=== PATIENT | male | born 1945 | race Caucasian/White ===

== ENCOUNTER → 2023-04-21 15:11 | Outpatient (REF) | payer MEDICARE, OTHER, SELFPAY ==
[2023-04-21 16:30] LABS: ALT (SGPT) 14 U/L (0-50); AST (SGOT) 20 U/L (17-59); Albumin 4.4 g/dl (3.5-5.0); Alkaline Phosphatase 134 U/L (38-126); Blood Urea Nitrogen 33 mg/dl (9-20); Calcium 9.4 mg/dl (8.4-10.2); Carbon Dioxide 29 mmol/L (22-30); Chloride 98 mmol/L (98-107); Glucose 142 mg/dl (70-99); Potassium 4.9 mmol/L (3.5-5.1); Sodium 133 mmol/L (135-145); Total Protein 7.2 g/dl (6.3-8.2); eGFR > 60.00
[2023-04-21 16:42] LABS: Microalbumin, Random Urine 1.5 mg/dl (0.6-1.7)
[2023-04-22 08:54] LABS: Glycohemoglobin (HgbA1c) 8.2 % (4.0-5.6)
== END ==
LOC: REG 15:11
PROVIDERS: ATTENDING PHYSICIAN Internal Medicine Endocrinology, Diabetes & Metabolism; FAMILY PHYSICIAN Family Medicine
DX: E11.65 Type 2 diabetes mellitus with hyperglycemia (principal)
CPT/HCPCS: 36415; 80053; 82043; 82570; 83036

== ENCOUNTER → 2023-06-04 13:48 | Outpatient (REF) | payer MEDICARE, OTHER, SELFPAY | LOC: HWRAD 13:48 | PROVIDERS: ATTENDING PHYSICIAN Podiatrist Foot & Ankle Surgery; FAMILY PHYSICIAN Family Medicine | DX: M86.171 Other acute osteomyelitis, right ankle and foot (principal); E11.621 Type 2 diabetes mellitus with foot ulcer | CPT/HCPCS: 73700 ==

== ENCOUNTER → 2023-06-30 14:08 | Outpatient (REF) | payer MEDICARE, OTHER, SELFPAY | LOC: DHVS 14:08 | PROVIDERS: ATTENDING PHYSICIAN Surgery Vascular Surgery | DX: I73.9 Peripheral vascular disease, unspecified (principal); R60.0 Localized edema | CPT/HCPCS: 93922; 93925; 93970 ==

== ENCOUNTER 2023-07-20 07:07 | Day surgery (SDC) | payer MEDICARE, OTHER, SELFPAY ==
[2023-07-20] VITALS (20 sets, daily range): BP systolic 107–142; BP diastolic 52–93; BMI 24.1
[2023-07-20 07:38] LABS: Hematocrit 43.6 % (39.0-52.0); Hemoglobin 14.7 g/dL (13.0-18.0); Mean Corp Hgb Conc. 33.7 g/dL (33.0-37.0); Mean Corpuscular Hgb 31.4 pg (27.0-31.0); Mean Corpuscular Volume 93.2 fL (80.0-94.0); Mean Platelet Volume 11.4 fL (7.4-10.4); Platelet Count 199 10^3/uL (130-400); Red Blood Cell Count 4.68 10^6/uL (4.70-6.10); Red Cell Dist. Width 13.6 % (11.5-14.5); White Blood Cell Count 9.4 10^3/uL (4.8-10.8)
[2023-07-20 07:44] LABS: Blood Urea Nitrogen 32 mg/dl (9-20); Calcium 9.5 mg/dl (8.4-10.2); Carbon Dioxide 24 mmol/L (22-30); Chloride 97 mmol/L (98-107); Estimated Creatinine Clearance 56 ml/min; Glucose 407 mg/dl (70-99); Potassium 5.3 mmol/L (3.5-5.1); Sodium 132 mmol/L (135-145); eGFR > 60.00
[2023-07-20 07:49] LABS: INR 1.14; PT 14.4 Sec (11.4-14.6)
[2023-07-20 07:51] LABS: APTT 27.1 Sec (23.4-35.0)
[2023-07-20 08:14] LABS: Glucose - Point of Care 336 mg/dl (70-99)
--- NOTE | 2023-07-20 08:35 | W.SUR.PREOP ---
Pre-Operative Surgical Note
-
I have examined this patient prior to the performance of the scheduled procedure.
The patient's condition is unchanged from the time of the current History and
Physical and the patient is able to undergo the scheduled procedure.
[2023-07-20] MEDS: NOVOLOG vial 11 UNITS SC (08:40)
[2023-07-20] MEDS: NSS 500 IV (08:41)
[2023-07-20 09:48] LABS: Glucose - Point of Care 347 mg/dl (70-99)
[2023-07-20 10:46] LABS: Glucose - Point of Care 315 mg/dl (70-99)
[2023-07-20 10:52] LABS: Glucose - Point of Care 310 mg/dl (70-99)
[2023-07-20] MEDS: NOVOLOG vial 6 UNITS SC (10:55)
--- NOTE | 2023-07-20 11:11 | W.IMMPOSTOP ---
Surgical Immed Post Op Note
-
Primary Surgeon: Dr. Sampson Marrero III, MD
Assisting Surgeon: Dr. Cricket Lyman MD, PhD (PGY-1)
Pre-op Diagnosis: Peripheral arterial occlusive disease
Post-op Diagnosis: Peripheral arterial occlusive disease
Procedure Performed: Diagnostic arteriogram, intravascular lithotripsy, balloon angioplasty with drug coated balloon
Anesthesia Type: MAC
Specimen / Cultures: None
Estimated Blood Loss: Minimal
Complications: None
Operative Findings: Patient was positioned supine and bilateral groins were prepped and draped in usual sterile fashion. Ultrasound guidance was used to identify the right common femoral artery. Local anesthesia was injected over the puncture site.
Micropuncture needle was used to access the right common femoral artery and a 5-barbadian sheath was advanced over a [place] wire. A quickcross and glidewire were used to access the contralateral external iliac system. Arteriogram was performed and
showed iliac disease and disease at the PT trunk take off with relatively poor single peroneal vessel run off. We upsized to a 6-Namibian sheath and crossed the distal lesions in the right peroneal vessel. Intravascular lithotripsy was performed along
the course of the peroneal artery. Focal dissection was noticed proximally at the PT trunk so a balloon angioplasty was performed with a drug coated balloon at the proximal PT trunk and down to the peroneal artery. Completion angiogram showed
improved flow in the peroneal system with collaterals supplying the distal DP and plantar aspects of the foot. There was poor reconstitution of the distal PT artery. Arteriogram was also performed on the right femoral-iliac system and showed
proximal in stent restenosis of the preexisting right external iliac stent. At the conclusion of the case, a weak doppler pulse was noted on the left DP and PT arteries and doppler pulses were intact in both DP and PT on the right lower extremity.
The patient was transferred in stable condition to the PACU where the right groin sheath will be removed with manual occlusive pressure.
--- NOTE | 2023-07-20 11:34 | OR.RPT ---
Operative Report
Operative Report
Date of Operation: 07/20/2023
Pre Op Diagnosis: Critical limb threatening ischemia, left lower extremity with nonhealing wounds
Post Op Diagnosis: Critical limb threatening ischemia, left lower extremity with nonhealing wounds
Procedure:
1.) Intravascular lithotripsy to left tibioperoneal trunk/proximal peroneal artery stenosis (3 mm x 40 mm S4 Shockwave balloon)
2.) Intravascular lithotripsy to left distal SFA/above-knee popliteal artery occlusion (6 mm x 60 mm M5+ Shockwave balloon)
3.) Diagnostic aortobiiliac arteriogram
4.) Diagnostic BILATERAL lower extremity arteriograms
5.) Ultrasound-guided percutaneous access to the right common femoral artery
Surgeon: Sampson Marrero III, MD
Flower Machine Operator: Cricket Lyman MD PhD, PGY1
Anesthesia: Sedation with local
Fluoroscopy:
32.3 min
168 mGy
51.71 Gy.cm2
Complications: None
Estimated Blood Loss: Less than 20 cc
History and Indications for Procedure: 77-year-old male with known peripheral arterial occlusive disease presented with critical limb threatening ischemia of his left lower extremity.
Procedure in Detail: Rogelio Pelletier was correctly identified and placed supine on the operating table. After adequate induction of anesthesia the bilateral groins were prepped and draped in the usual sterile fashion. A timeout was performed with
the nursing and anesthesia staff confirming the patient's identity as well as the nature and laterality of the procedure.
The right common femoral artery was identified under ultrasound guidance. The artery was patent with peripheral calcification identified. The superior and inferior aspects of the femoral head were identified with radiographic guidance and marked at
the skin level. The proposed puncture site was infiltrated with local anesthesia. We saved a copy of the ultrasound image to the medical record. Under ultrasound guidance we accessed the right common femoral artery with a micropuncture needle and
upsized to a 5 Fr sheath over a Chlorine Genieson wire. The wire and a [employer] hook flush catheter were advanced into the distal abdominal aorta and a diagnostic aorto-biiliac arteriogram was performed:
AORTO-ILIAC ARTERIOGRAM:
Aorta: Diffusely calcified but patent with no significant stenosis identified
Right common iliac artery: Patent with no significant stenosis identified
Right external iliac artery: Patent. Several areas of moderate to high-grade stenosis identified
Left common iliac artery: Patent with no significant stenosis identified
Left external iliac artery: Patent stent in the proximal aspect with no significant stenosis identified.
Under roadmap guidance using a Glidewire and the [employer] hook catheter we selected the left common iliac artery and then the external iliac artery. A catheter was tracked up and over the aortic bifurcation and placed in the distal external iliac
artery. A diagnostic left lower extremity arteriogram was then performed which demonstrated the following:
LEFT LOWER EXTREMITY:
Common femoral artery: Patent with no significant stenosis identified
Profunda femoral artery: Patent. Focal high-grade stenosis in the proximal aspect
Superficial femoral artery: Patent stent proximally. Sluggish flow identified. Occlusion identified in the distal SFA/above-knee popliteal artery.
Popliteal artery: Reconstituted above the knee with moderate to severe stenosis identified
Anterior tibial artery: Patent stump but occluded shortly thereafter with no distal reconstitution
Tibioperoneal trunk: Patent with high-grade stenosis
Peroneal artery: Single vessel tibial artery. High-grade stenosis in the proximal aspect.
Posterior tibial artery: Occluded with no meaningful distal reconstitution
Severe and diffuse small vessel occlusive disease is identified in the foot.
ENDOVASCULAR INTERVENTION: Systemic heparin was administered. Selected the superficial femoral artery. Exchanged out for a 6 Fr 45 cm sheath over a Storq wire. The distal SFA/above-knee popliteal artery occlusion was crossed with a Quickcross and
Glidewire. The wire and catheter were advanced into the below-knee popliteal artery and subtraction angio confirmed proper position in the true lumen. Next under roadmap guidance we were able to navigate across the high-grade stenosis in the
tibioperoneal trunk and proximal peroneal artery with the Quickcross and Glidewire. Exchanged out for a 0.014 wire. Due to the calcified nature of the arterial disease and in an effort to modify the calcium to achieve maximum luminal gain with
endovascular intervention I elected to proceed with intravascular lithotripsy. A 3 mm x 40 mm S4 shockwave balloon was placed across the stenosis under roadmap guidance. Alternating rounds of lithotripsy pulse delivery at sub-nominal pressure and
angioplasty at nominal pressure was performed across the stenosis. In between rounds of pulse delivery and angioplasty the balloon was deflated and repositioned under roadmap guidance. All 160 pulses were delivered. Subsequent arteriogram
demonstrated an excellent technical result with a widely patent tibioperoneal trunk and peroneal artery and no significant residual stenosis identified.
I then focused my attention on the superficial femoral artery/popliteal artery occlusive disease. Due to the calcified nature of the arterial disease and in an effort to modify the calcium to achieve maximum luminal gain with endovascular
intervention I elected to proceed with intravascular lithotripsy. A 6 mm x 60 mm M5+ Shockwave balloon was placed across the stenosis under roadmap guidance. Alternating rounds of lithotripsy pulse delivery at sub-nominal pressure and angioplasty at
nominal pressure was performed across the stenosis. In between rounds of pulse delivery and angioplasty the balloon was deflated and repositioned under roadmap guidance. All 300 pulses were delivered.
Subsequent arteriogram demonstrated a significant improvement in the appearance of the superficial femoral artery and popliteal artery. There was a nonflow limiting dissection flap identified. Under roadmap guidance I then positioned a 6 mm x 220
mm Lutonix drug-coated balloon across the distal SFA/popliteal artery. The balloon was inflated to nominal pressure, held in place for 2 minutes and then deflated and removed over the wire.
COMPLETION ARTERIOGRAM: Patent left superficial femoral artery and popliteal artery with nonflow limiting dissection identified and no significant residual stenosis. Runoff was demonstrated through a patent tibioperoneal trunk and peroneal artery
with no significant residual stenosis identified. Once again identified was severe occlusive disease involving the posterior tibial artery and anterior tibial artery along with severe and diffuse small vessel occlusive disease in the foot.
The sheath tip was pulled back into the right external iliac artery. A runoff arteriogram of the right lower extremity was then performed which demonstrated the following:
RIGHT LOWER EXTREMITY:
Common femoral artery: Patent with no significant stenosis identified
Profunda femoral artery: Patent with no significant stenosis identified
Superficial femoral artery: Patent stents. Scattered areas of moderate and high-grade stenosis seen throughout, most severe at the proximal aspect of the stent
Popliteal artery: Patent with no significant stenosis identified
Anterior tibial artery: Occluded
Tibioperoneal trunk: Focal high-grade stenosis identified at its origin
Peroneal artery: Focal high-grade stenosis proximally. Single-vessel patent tibial artery.
Posterior tibial artery: Occluded.
The patient tolerated the procedure well and was taken to the recovery area in stable condition.
Attestation: I was present and responsible for the entire procedure.
Signed:
Sampson Marrero III, MD
Vascular Surgery
[phone] (diix)
--- NOTE | 2023-07-20 12:07 | SUR.PHASEI ---
Report to lab tech recovery phase 2 on phone - transported by Ajay Costa RN
[2023-07-20 13:04] LABS: Glucose - Point of Care 246 mg/dl (70-99)
--- NOTE | 2023-07-20 13:11 | PTCARENOTE ---
Accucheck 246 at 1252 hrs. Renuka Wilder aware and SS insulin ordered.
Will give 3 units insulin per SS. Pt tolerating all well. at bedside.
[2023-07-20] MEDS: NOVOLOG vial 3 UNITS SC (13:17)
== END 2023-07-20 17:35 | disposition home or self-care (01) ==
LOC: CATH 07:07
PROVIDERS: ATTENDING PHYSICIAN Surgery Vascular Surgery; FAMILY PHYSICIAN Family Medicine
DX: I70.248 Atherosclerosis of native arteries of left leg with ulceration of other part of lower leg (principal); L97.829 Non-pressure chronic ulcer of other part of left lower leg with unspecified severity; I70.245 Atherosclerosis of native arteries of left leg with ulceration of other part of foot; L97.529 Non-pressure chronic ulcer of other part of left foot with unspecified severity; Z79.82 Long term (current) use of aspirin; Z79.01 Long term (current) use of anticoagulants; Z79.84 Long term (current) use of oral hypoglycemic drugs; I48.0 Paroxysmal atrial fibrillation; I42.1 Obstructive hypertrophic cardiomyopathy; I50.40 Unspecified combined systolic (congestive) and diastolic (congestive) heart failure
CPT/HCPCS: C9764; C9772; 75625; 75716; 76937; 80048; 82962; 85027; 85610; 85730; C1769; C1894; Q9967

== ENCOUNTER 2023-08-04 14:58 | Emergency (ER) | payer MEDICARE, OTHER, SELFPAY ==
[2023-08-04 15:17] VITALS: BP 105/49
[2023-08-04 15:50] LABS: % Basophils 0.4 % (0-2); % Eosinophils 1.1 % (0-6); % Immature Granulocytes 0.7 % (0-0.5); % Lymphocytes 17.3 % (20.5-51.1); % Monocytes 5.9 % (1.7-9.3); % Neutrophils 74.6 % (42.2-75.2); Absolute Eosinophils 0.1 10^3/uL (0-0.7); Absolute Immature Granulocytes 0.1 10^3/uL (0-0.05); Absolute Lymphocytes 1.7 10^3/uL (1.2-3.4); Absolute Monocytes 0.6 10^3/uL (0.1-0.6); Absolute Neutrophils 7.2 10^3/uL (1.4-6.5); Hematocrit 42.4 % (39.0-52.0); Hemoglobin 14.3 g/dL (13.0-18.0); Mean Corp Hgb Conc. 33.7 g/dL (33.0-37.0); Mean Corpuscular Hgb 31.3 pg (27.0-31.0); Mean Corpuscular Volume 92.8 fL (80.0-94.0); Mean Platelet Volume 11.3 fL (7.4-10.4); Nucleated Red Blood Cells % 0 % (-); Platelet Count 172 10^3/uL (130-400); Red Blood Cell Count 4.57 10^6/uL (4.70-6.10); Red Cell Dist. Width 13.6 % (11.5-14.5); White Blood Cell Count 9.7 10^3/uL (4.8-10.8)
[2023-08-04 15:59] LABS: ALT (SGPT) 15 U/L (0-50); AST (SGOT) 19 U/L (17-59); Albumin 4.5 g/dl (3.5-5.0); Alkaline Phosphatase 125 U/L (38-126); Blood Urea Nitrogen 30 mg/dl (9-20); Calcium 9.6 mg/dl (8.4-10.2); Carbon Dioxide 23 mmol/L (22-30); Chloride 101 mmol/L (98-107); Glucose 251 mg/dl (70-99); Potassium 4.6 mmol/L (3.5-5.1); Sodium 138 mmol/L (135-145); Total Bilirubin 0.9 mg/dl (0.2-1.3); Total Protein 7.4 g/dl (6.3-8.2); eGFR > 60.00
[2023-08-04 19:52] VITALS: BP 140/62; BMI 24.6
--- NOTE | 2023-08-04 20:38 | ED.GENMED ---
History of Present Illness
General
Chief Complaint: Skin Problem
Time Seen by Provider: 08/04/23 19:34
Travel History
Have you had any contact with someone who has COVID-19?: No
Do you have any symptoms of coronavirus? Fever > 100 degrees, chills, cough, shortness of breath, sore throat, loss of taste or smell, muscle aches, or headache?: No
History of Present Illness
History of Present Illness:
77-year-old male with history of peripheral arterial disease presents to the emergency department for evaluation of a painful wound to the left anterior lower leg. He is 2 weeks status post angioplasty of the left lower extremity due to critical
limb ischemia. He does note that he had some redness and warmth to the left foot today which is atypical for him. Denies any claudication symptoms. No fevers or chills
Past History
Past History
ED Past Medical History: Arrthythmia (Atrial fibrillation), CHF (Hypertrophic obstructive Cardiomyopathy), HTN, Hypercholesterolemia, Valvular disease and Other (Hypertrophic cardiomyopathy, diabetic neuropathy, diabetic foot wounds, cellulitis,
osteomyelitis, MRSA)
ED Past Surgical History: Cardiac (AICD, aortic valve replacement), Cholecystectomy, Orthopedic (Right foot metatarsal resection November 2017) and Tonsilectomy
Social History
Tobacco: Smoker
Alcohol: None
Drug: None
Personal:
Living: with family
Employment: Retired
Family History
Family History: Other (Father with rheumatic fever)
Review of Systems
Review of Systems
Allergies reviewed?: Yes
All Other Systems: ROS reviewed and negative except as documented in HPI and ROS
Phy Exam
Physical Exam
Physical Exam:
GEN: Well appearing, NAD, WDWN
HEENT: Oral mucosa moist, no scleral icterus
Cardiac: Regular rate
Lung: No respiratory distress, no tachypnea
MSK: No gross deformity or injuries. 2 cm circular superficial wound with overlying eschar to the anterior left lower extremity with surrounding erythema, no warmth or discharge. Left dorsalis pedis pulse is faint by Doppler
Skin: Good color, no pallor or jaundice, no rashes
Neuro: AO x3, moves all extremities freely
Psych: Calm, cooperative
Course
Orders/Labs/Results
Orders:
Orders
08/04/23 15:34
Complete Blood Count/With Diff Urgent
Comprehensive Metabolic Panel Urgent
08/04/23 19:44
CR Leg Tibia/fibula Left 2 Vw Urgent
Comment:
Reason For Exam: non healing wound L anterior lower leg
08/04/23 20:32
Cephalexin Monohydrate [Keflex] 500 mg PO NOW STA
08/04/23 20:50
Mupirocin [Bactroban 2% Ointment] 1 applic TOPICAL NOW STA
Abnormal Lab Results
08/04/23
15:34
RBC 4.57 L 10^6/uL
(4.70-6.10)
MCH 31.3 H pg
(27.0-31.0)
MPV 11.3 H fL
(7.4-10.4)
Abs Immat Gran (auto) 0.1 H 10^3/uL
(0-0.05)
Absolute Neuts (auto) 7.2 H 10^3/uL
(1.4-6.5)
Immature Gran % 0.7 H %
(0-0.5)
Lymphocytes % 17.3 L %
(20.5-51.1)
BUN 30 H mg/dl
(9-20)
Glucose 251 H mg/dl
(70-99)
08/04/23 15:34
08/04/23 15:34
Vital Signs
Initial and Last Documented VS:
Initial Vital Signs
Temp Pulse Resp BP Pulse Ox
98.1 F 87 18 105/49 99
08/04/23 15:17 08/04/23 15:17 08/04/23 15:17 08/04/23 15:17 08/04/23 15:17
Last Documented Vital Signs
Temp Pulse Resp BP Pulse Ox
98.1 F 87 18 140/62 100
08/04/23 15:17 08/04/23 15:17 08/04/23 15:17 08/04/23 19:52 08/04/23 19:53
MDM/Problems Addressed
MDM/Problems Addressed:
The wound does not appear to be actively infected given lack of warmth however given the significant degree of tenderness we will treat with prophylactic antibiotics. Likely dry gangrene in the setting of peripheral arterial disease. Will start
him on oral and topical antibiotics for 1 week empirically
*Critical Care Note
Total Time (30-74mins, 75-104mins- exclusive of procedures): Not Applicable
ED Attending Note
-
Portions of this chart may have been created with voice recognition software.� Occasional wrong word or��sound alike� substitutions may have occurred due to the inherent limitations of voice recognition software.
Discharge Plan
Departure
Patient Disposition: Home (Routine Discharge)
Date of Disposition: 08/04/23
Time of Disposition: 20:42
Patient with high blood pressure during this ER visit?: No
Discharge Problem:
Dry gangrene, PAD (peripheral artery disease), Leg wound, left
Instructions: Wound Care (DC)
Prescriptions:
New
mupirocin 2 % ointment
1 applic topical BID 5 Days Qty: 15 0RF
cephalexin 500 mg capsule
500 mg PO Q8H 5 Days Qty: 15 0RF
No Action
potassium chloride [Klor-Con M20] 20 MEQ tablet,ER particles/crystals
20 meq PO BID
metformin 1,000 MG tablet
1,000 mg PO BID
Hold Instructions: Resume on 10/02/22. Hold for 48 hrs post angio
glipizide 5 MG tablet
10 mg PO BID
Patient Comments:
cinnamon bark [Cinnamon] 500 MG capsule
500 mg PO DAILY
furosemide [Lasix] 40 MG tablet
80 mg PO DAILY
cyanocobalamin (vitamin B-12) 1,000 MCG tablet
1,000 mcg PO DAILY
warfarin [Jantoven] 5 MG tablet
7.5 mg PO SUTH
Hold Instructions: Resume on 10/01/21. Resume dose warfrin on 10/01/2021
warfarin [Jantoven] 5 MG tablet
5 mg PO MOTUWEFRSA
turmeric root extract 500 MG capsule
900 mg PO DAILY
losartan 25 MG tablet
25 mg PO DAILY
cholecalciferol (vitamin D3) [Vitamin D3] 25 MCG capsule
25 mcg PO DAILY
chromium picolinate 1,000 MCG tablet
500 mcg PO DAILY
Jardiance 25 mg Tablet
25 mg PO DAILY
furosemide 40 mg Tablet
40 mg PO QPM
tamsulosin [Flomax] 0.4 mg Capsule
0.4 mg PO QPM
aspirin [Ecotrin Low Strength] 81 mg tablet,delayed release (DR/EC)
81 mg PO DAILY Qty: 30 5RF
methylprednisolone 32 mg Tablet
32 mg PO DIRECTED
Rx Instructions:
1 tab 12 hours prior to procedure
diphenhydramine HCl [Benadryl] 25 mg Capsule
50 mg PO DIRECTED
Rx Instructions:
take 50 mg 1 hour prior to procedure
fenugreek seed extract
610 mg PO DAILY
Activity Restrictions/Additional Instructions:
Keep the wound dressed daily, cleanse with soap and water at least once daily
Follow-up with wound care
Contact your vascular surgeon tomorrow given your upcoming procedure
Interventions
Interventions:
*Risk Screen - Suicide Last Done: 08/04/23 19:57
*General Assessment Last Done: 08/04/23 19:57
*Neglect/Abuse Screening Last Done: 08/04/23 19:57
*ED COVID-19 Vaccine History Last Done: 08/04/23 19:57
ED-Skin Assessment Last Done: 08/04/23 20:03
Discharge Date and Time
Print Language: JAPANESE
[2023-08-04] MEDS: KEFLEX 500 MG PO (21:05)
[2023-08-04] MEDS: BACTROBAN 2% OINTMENT 1 APPLIC TOPICAL (21:05)
== END 2023-08-04 22:03 | disposition home or self-care (01) ==
LOC: EMR 14:58
PROVIDERS: Emergency Medicine; EMERGENCY PHYSICIAN Student in an Organized Health Care Education/Training Program; FAMILY PHYSICIAN Family Medicine
DX: E11.52 Type 2 diabetes mellitus with diabetic peripheral angiopathy with gangrene (principal); I96 Gangrene, not elsewhere classified; S81.802A Unspecified open wound, left lower leg, initial encounter; X58.XXXA Exposure to other specified factors, initial encounter; I48.91 Unspecified atrial fibrillation; E78.00 Pure hypercholesterolemia, unspecified; E11.40 Type 2 diabetes mellitus with diabetic neuropathy, unspecified; F17.200 Nicotine dependence, unspecified, uncomplicated; I11.0 Hypertensive heart disease with heart failure; I42.1 Obstructive hypertrophic cardiomyopathy; Z90.49 Acquired absence of other specified parts of digestive tract; Z95.2 Presence of prosthetic heart valve; Z95.810 Presence of automatic (implantable) cardiac defibrillator
CPT/HCPCS: 99283; 73590; 80053; 85025; 87070; 87205

== ENCOUNTER 2023-08-07 07:05 | Day surgery (SDC) | payer MEDICARE, OTHER, SELFPAY ==
[2023-08-07] VITALS (30 sets, daily range): BP systolic 88–127; BP diastolic 54–83; BMI 24.3
[2023-08-07 07:42] LABS: INR 1.16; PT 14.7 Sec (11.4-14.6)
[2023-08-07 08:02] LABS: Glucose - Point of Care 384 mg/dl (70-99)
[2023-08-07] MEDS: NOVOLOG vial 5 UNITS SC (08:16)
[2023-08-07 10:16] LABS: Glucose - Point of Care 315 mg/dl (70-99)
--- NOTE | 2023-08-07 10:36 | OR.RPT ---
Operative Report
Operative Report
Date of Operation: 08/07/2023
Pre Op Diagnosis: Critical limb threatening ischemia, right lower extremity
Post Op Diagnosis: Critical limb threatening ischemia, right lower extremity
Procedure:
1.) Intravascular lithotripsy to right TP trunk and posterior tibial artery stenosis (3 mm x 40 mm S4 shockwave balloon)
2.) Drug-coated balloon angioplasty to diffuse in-stent restenosis of superficial femoral artery stent (6 mm x 220 mm Lutonix)
3.) Drug-coated balloon angioplasty to right popliteal artery stenosis (5 mm x 220 mm Lutonix)
4.) Balloon angioplasty and stenting of proximal right external iliac artery stenosis (8 mm x 27 mm express LD stent)
5.) Ultrasound-guided percutaneous access to the left common femoral artery
Surgeon: Sampson Marrero III, MD
Plumbing Drafter: Cricket Lyman MD PhD, PGY1
Anesthesia: Sedation with local
Fluoroscopy:
26.3 min
211 mGy
42.97 Gy.cm2
Complications: None
Estimated Blood Loss: Less than 20 cc
History and Indications for Procedure: 77-year-old male with critical limb threatening ischemia involving his right lower extremity.
Procedure in Detail: Rogelio Pelletier was correctly identified and placed supine on the operating table. After adequate induction of anesthesia the bilateral groins were prepped and draped in the usual sterile fashion. A timeout was performed with
the nursing and anesthesia staff confirming the patient's identity as well as the nature and laterality of the procedure.
The left common femoral artery was identified under ultrasound guidance. The artery was patent. The superior and inferior aspects of the femoral head were identified with radiographic guidance and marked at the skin level. The proposed puncture site
was infiltrated with local anesthesia. We saved a copy of the ultrasound image to the medical record. Under ultrasound guidance we accessed the right common femoral artery with a micropuncture needle and upsized to a 5 Fr sheath over a Bentson wire.
The wire and a [employer] hook flush catheter were advanced into the distal abdominal aorta and a diagnostic aorto-biiliac arteriogram was performed:
AORTO-ILIAC ARTERIOGRAM:
Aorta: Patent with no significant stenosis identified
Right common iliac artery: Patent with no significant stenosis identified
Right external iliac artery: Proximal moderate to high-grade stenosis identified
Left common iliac artery: Patent with no significant stenosis identified
Left external iliac artery: Patent with no significant stenosis identified
Under roadmap guidance using a Glidewire and the [employer] hook catheter we selected the right common iliac artery and then the external iliac artery. A catheter was tracked up and over the aortic bifurcation and placed in the distal external iliac
artery. A diagnostic right lower extremity arteriogram was then performed which demonstrated the following:
RIGHT LOWER EXTREMITY:
Common femoral artery: Calcified. Patent with no significant stenosis identified
Profunda femoral artery: Patent with no significant stenosis identified
Superficial femoral artery: Stented throughout. Diffuse scattered high-grade in-stent restenosis identified.
Popliteal artery: Patent. Focal moderate stenosis involving the popliteal artery behind the knee. Below-knee popliteal artery patent with no stenosis identified
Anterior tibial artery: Occluded
Tibioperoneal trunk: Patent. High-grade stenosis focally at the distal aspect.
Peroneal artery: Patent stump but occluded shortly thereafter
Posterior tibial artery: Single vessel tibial artery runoff. High-grade stenosis in the proximal aspect.
ENDOVASCULAR INTERVENTION: Systemic heparin was administered. Exchanged out for a 6 Fr 45 cm sheath over a Storq wire. Selected the superficial femoral artery under roadmap guidance with Quickcross catheter and glidewire. The diffuse in-stent
restenosis in the superficial femoral artery stent was crossed with a Quickcross and Glidewire. Similarly the popliteal artery stenosis was crossed with the same set up. The tibioperoneal trunk and proximal posterior tibial artery stenoses were
crossed with the Glidewire and quick cross catheter under roadmap guidance. The wire and catheter were advanced into the posterior tibial artery and subtraction angio confirmed proper position in the true lumen. Exchanged out for a 0.014 wire. Due
to the calcified nature of the tibial arterial disease and in an effort to modify the calcium to achieve maximum luminal gain with endovascular intervention I elected to proceed with intravascular lithotripsy. A 3 mm x 40 mm S4 shockwave balloon was
placed across the TP trunk/proximal posterior tibial artery stenosis under roadmap guidance. Alternating rounds of lithotripsy pulse delivery at sub-nominal pressure and angioplasty at nominal pressure was performed across the stenosis. In between
rounds of pulse delivery and angioplasty the balloon was deflated and repositioned under roadmap guidance. All 160 pulses were delivered. Subsequent arteriogram demonstrated an excellent technical result with a widely patent tibioperoneal trunk and
posterior tibial artery, brisk flow and no evidence of significant residual stenosis.
I then focused my attention on the superficial femoral artery in-stent restenosis as well as the popliteal artery stenosis behind the knee. I exchanged out for a [employer] wire. The chinik popliteal artery stenosis along with the in-stent restenosis
in the distal aspect of the superficial femoral artery stent was treated with a 5 mm x 220 mm Lutonix drug-coated balloon. The balloon was positioned in the desired location under roadmap guidance, inflated to nominal pressure, held in place for 2
minutes. The remainder of the superficial femoral artery in-stent restenosis was treated with a 6 mm x 220 mm Lutonix drug-coated balloon which was positioned and which was positioned and inflated in a similar fashion. Subsequent arteriogram
demonstrated an excellent technical result. The superficial femoral artery stent and popliteal artery were widely patent with no significant residual stenosis identified.
I then focused my attention on the external iliac artery disease. Under oblique magnification view the right proximal external iliac artery stenosis was clearly identified. Under roadmap guidance I treated the stenosis with an 8 mm x 27 mm express
LD stent. The stent was positioned in the desired location under roadmap guidance and deployed by inflating to nominal pressure. Subsequent arteriogram demonstrated an excellent technical result with brisk flow through the external iliac artery, a
widely patent stent with no residual stenosis identified.
Satisfied with this result we concluded the procedure. The sheath tip was pulled back into the left external iliac artery. Protamine was administered.
The patient tolerated the procedure well and was taken to the recovery area in stable condition.
Attestation: I was present and responsible for the entire procedure.
Signed:
Sampson Marrero III, MD
[facility] Vascular Surgery
[phone] (cell)
[2023-08-07] MEDS: NOVOLOG vial 4 UNITS SC (10:52)
[2023-08-07] MEDS: DILAUDID 0.25 MG IV ×2 (10:54→11:16)
[2023-08-07] MEDS: KEFLEX 500 MG PO (12:03)
[2023-08-07 12:46] LABS: Glucose - Point of Care 212 mg/dl (70-99)
[2023-08-07] MEDS: NOVOLOG FLEXPEN-LOW RESISTANCE 2 UNITS SC (12:47)
--- NOTE | 2023-08-07 20:31 | W.IMMPOSTOP ---
Surgical Immed Post Op Note
-
Primary Surgeon: Dr. Sampson Marrero III, MD
Assisting Surgeon: Dr. Cricket Lyman MD, PhD (PGY-1)
Pre-op Diagnosis: Right lower extremity severe occlusive peripheral artery disease with critical limb threatening ischemia
Post-op Diagnosis: Right lower extremity severe occlusive peripheral artery disease with critical limb threatening ischemia
Procedure Performed: Diagnostic arteriogram, intravascular lithotripsy, drug-coated balloon angioplasty, stent x1
Anesthesia Type: MAC
Specimen / Cultures: None
Estimated Blood Loss: Minimal
Complications: None
Operative Findings: The patient was brought to the OR and placed in the supine position. After induction and sedation, the patient was prepped and draped in usual sterile fashion. Ultrasound guidance was used to identify the left common femoral
artery and the inferior and superior boundaries of the femoral head were marked at the skin level with C-arm. Micropuncture kit was used to access the left common femoral artery and this was upsized to a 5-maldivian sheath over a [employer] wire. A
hickman's hook catheter was advanced over the wire and a diagnostic arteriogram was performed. This showed a focal area of occlusive disease in the right external iliac artery. A Glidewire was used to select the contralateral ilio-femoral system.
Diagnostic arteriogram showed significant in stent restenosis of the right SFA, occlusive disease of the AT artery, TP trunk, with single PT artery run off distally. We exchanged for a 6-maldivian sheath and crossed the TP trunk lesion with a
quickcross catheter and wire. Intravascular lithotripsy was performed along the TP trunk and proximal PT artery. Following this, drug-coated balloon angioplasty was performed along the right SFA in stent restenosis. In addition, a drug-coated stent
was delivered in the right external iliac artery. Completion arteriogram showed flow throw the right external iliac artery, improvement in vessel lumen caliber along the right SFA, and a patent TP trunk. The sheaths were removed and occlusive
pressure was held. The patient was transferred to the PACU in stable condition.
== END 2023-08-07 16:20 | disposition home or self-care (01) ==
LOC: CATH 07:05
PROVIDERS: ATTENDING PHYSICIAN Surgery Vascular Surgery; FAMILY PHYSICIAN Family Medicine; OTHER PHYSICIAN Internal Medicine Cardiovascular Disease
DX: I70.229 Atherosclerosis of native arteries of extremities with rest pain, unspecified extremity (principal); Z79.82 Long term (current) use of aspirin; Z79.84 Long term (current) use of oral hypoglycemic drugs; Z79.01 Long term (current) use of anticoagulants; E11.9 Type 2 diabetes mellitus without complications; I42.1 Obstructive hypertrophic cardiomyopathy; I42.9 Cardiomyopathy, unspecified; I48.21 Permanent atrial fibrillation; I50.42 Chronic combined systolic (congestive) and diastolic (congestive) heart failure
CPT/HCPCS: 37224; 37220; C9772; C1876; C2623; 76937; 82962; 85610; Q9967

== ENCOUNTER → 2023-09-16 13:07 | Outpatient (REF) | payer MEDICARE, OTHER, SELFPAY | LOC: RAD 13:07 | PROVIDERS: ATTENDING PHYSICIAN Surgery Vascular Surgery; FAMILY PHYSICIAN Family Medicine | DX: I77.9 Disorder of arteries and arterioles, unspecified (principal) | CPT/HCPCS: 93922; 93925; 93978 ==

== ENCOUNTER 2023-09-22 19:17 | Inpatient (IN) | payer MEDICARE, OTHER, SELFPAY ==
[2023-09-22 16:01] VITALS: BP 111/82
--- NOTE | 2023-09-22 16:06 | W.PN.UPDATE ---
Update Note
Progress Note Update
Vascular consultation:
Patient seen in our office today with note below, sent to emergency room for evaluation.
Plan:
-Plastics consult, Dr. Palomo spoke with Dr. Soto
-Admit to hospitalist
-Left lower extremity x-ray to eval for osteo
-Possible left lower extremity arteriogram
-Local wound care
--- NOTE | 2023-09-22 16:16 | ED.GENMED ---
History of Present Illness
General
Chief Complaint: Skin Problem
Source: patient
Exam Limitations: none
Time Seen by Provider: 09/22/23 16:14
Nursing documentation reviewed up to this point in time: agreed with
History of Present Illness
History of Present Illness:
This is a 77-year-old male with a past medical history of diabetes with diabetic neuropathy, peripheral arterial disease, CHF, A-fib on warfarin, coronary artery disease presenting emergency department today with concerns of a left lower extremity
wound. Patient was sent in by Dr. Marrero's office today. He was seen today for routine postop visit, he had bilateral endovascular intervention on the lower extremities, 07/19 (left) 08/06 (right). Patient's vascular team called him in to the ER and
report that his lower extremity wound is worsening and that he has a worsening THOMAS on the left with SFA re-occlusion on duplex. Patient states that he has had this wound for around a year and a half. Patient states that with his significant
neuropathy, he does not have much feeling remaining in his lower extremities however he does note that he will get twinges of pain from time to time surrounding the wound. Patient denies any fevers or chills, any nausea or vomiting, any abdominal
pain, any chest pain, shortness of breath.
Past History
Past History
ED Past Medical History: Arrthythmia (Atrial fibrillation), CHF (Hypertrophic obstructive Cardiomyopathy), HTN, Hypercholesterolemia, Valvular disease and Other (Hypertrophic cardiomyopathy, diabetic neuropathy, diabetic foot wounds, cellulitis,
osteomyelitis, MRSA)
ED Past Surgical History: Cardiac (AICD, aortic valve replacement), Cholecystectomy, Orthopedic (Right foot metatarsal resection November 2017) and Tonsilectomy
Social History
Tobacco: Smoker
Alcohol: None
Drug: None
Personal:
Living: with family
Employment: Retired
Family History
Family History: Other (Father with rheumatic fever)
Review of Systems
Review of Systems
All Other Systems: ROS reviewed and negative except as documented in HPI and ROS
Phy Exam
Physical Exam
Physical Exam:
General: Patient is well appearing and in no acute distress; non-toxic
Skin: Warm and dry; 5.5 cm circular wound on the anterior left extremity with no active drainage, questionable exposed tibia
Head: Normocephalic, atraumatic
Eyes: Sclera non-icteric. EOMs intact.
Cardiac: Regular rate and rhythm
Peripheral Vascular: No lower extremity swelling or edema
Pulm: Normal respiratory effort
Musculoskeletal: Mild tenderness to palpation of the left tibia. No pain with passive range of motion of bilateral lower extremities.
Neuro: CN II-XII intact, no focal neurologic deficits.
Psychiatric: Appropriate mood and affect.
Course
Orders/Labs/Results
Orders:
Orders
09/22/23 16:23
PLASTIC SURGERY CONSULT Routine
Consulting Provider: Santy Soto
Was physician already notified: Yes
Reason for Consult: Left silva wound
09/22/23 16:28
CR Leg Tibia/fibula Left 2 Vw Urgent
Comment:
Reason For Exam: left LE wound
09/22/23 16:44
CRP [C-Reactive Protein] Urgent
Complete Blood Count/With Diff Urgent
Comprehensive Metabolic Panel Urgent
Erythrocyte Sed Rate Urgent
09/22/23 17:18
Acetaminophen [Tylenol] 1,000 mg PO NOW STA
Abnormal Lab Results
09/22/23
16:44
RBC 4.45 L 10^6/uL
(4.70-6.10)
MCH 32.1 H pg
(27.0-31.0)
MPV 11.1 H fL
(7.4-10.4)
BUN 32 H mg/dl
(9-20)
Glucose 183 H mg/dl
(70-99)
09/22/23 16:44
09/22/23 16:44
Vital Signs
Initial and Last Documented VS:
Initial Vital Signs
Pulse Resp BP Pulse Ox
76 16 111/82 96
09/22/23 16:01 09/22/23 16:01 09/22/23 16:01 09/22/23 16:01
Last Documented Vital Signs
Temp Pulse Resp BP Pulse Ox
98.0 F 71 18 115/68 99
09/22/23 17:19 09/22/23 17:18 09/22/23 17:18 09/22/23 17:18 09/22/23 17:18
MDM/Problems Addressed
Differential Diagnosis Includes:
ddx include progression of peripheral arterial disease, dry gangrene osteomyelitis, cellulitis
MDM/Problems Addressed:
LLE Wound:
This is a 77-year-old male with a past medical history of diabetes with diabetic neuropathy, peripheral arterial disease, CHF, A-fib on warfarin, coronary artery disease presenting emergency department today with concerns of a left lower extremity
wound. Patient states that he has had this wound for around a year and a half. Patient was sent in by Dr. Marrero's office for admission, as he was found to have worsening THOMAS on the left and reocclusion of left SFA stent. There was also concern for
potential osteo. Patient has no evidence of osteo on his X-ray, his VSS, his inflammatory markers are unremarkable. Patient was referred for admission.
Chronic conditions affecting care:
diabetic neuropathy, peripheral arterial disease, aortic stenosis, A-fib, CHF, ICD in place
Acute Exacerbation and/or Progression of Chronic Illness:
diabetic neuropathy, peripheral arterial disease, aortic stenosis, A-fib, CHF, ICD in place
*Pulse Oximetry
Patient hypoxic: no
*Critical Care Note
Total Time (30-74mins, 75-104mins- exclusive of procedures): Not Applicable
Data Reviewed
Review of Other/Old Records Reveals: Records (Reviewed previous vascular ultrasound study, reviewed operative report from 07/20/2023, reviewed ER physician documentation from 08/04/23)
Source: patient and records
Prescriptions/Medications Considered But Not Given:
considered starting antibiotics
Further Testing Considered But Not Given:
considered MRI but patient has ICD in place
Patient Management
Discussion with other providers: Hospitalist
Escalation/DeEscalation of care consider admission/obs:
Admission indicated. Case reviewed with my attending Dr. Carlin.
ED Attending Note
-
Portions of this chart may have been created with voice recognition software.� Occasional wrong word or��sound alike� substitutions may have occurred due to the inherent limitations of voice recognition software.
Discharge Plan
Departure
Prescriptions:
No Action
potassium chloride [Klor-Con M20] 20 MEQ tablet,ER particles/crystals
20 meq PO BID
metformin 1,000 MG tablet
1,000 mg PO BID
Hold Instructions: Resume on 08/10/23.
glipizide 5 MG tablet
10 mg PO BID
Patient Comments:
cinnamon bark [Cinnamon] 500 MG capsule
500 mg PO DAILY
furosemide [Lasix] 40 MG tablet
80 mg PO DAILY
cyanocobalamin (vitamin B-12) 1,000 MCG tablet
1,000 mcg PO DAILY
warfarin [Jantoven] 5 MG tablet
7.5 mg PO SUTH
Hold Instructions: Resume on 10/01/21. Resume dose warfrin on 10/01/2021
warfarin [Jantoven] 5 MG tablet
5 mg PO MOTUWEFRSA
turmeric root extract 500 MG capsule
900 mg PO DAILY
losartan 25 MG tablet
25 mg PO DAILY
cholecalciferol (vitamin D3) [Vitamin D3] 25 MCG capsule
25 mcg PO DAILY
chromium picolinate 1,000 MCG tablet
500 mcg PO DAILY
Jardiance 25 mg Tablet
25 mg PO DAILY
furosemide 40 mg Tablet
40 mg PO QPM
tamsulosin [Flomax] 0.4 mg Capsule
0.4 mg PO QPM
aspirin [Ecotrin Low Strength] 81 mg tablet,delayed release (DR/EC)
81 mg PO DAILY Qty: 30 5RF
fenugreek seed extract
610 mg PO DAILY
Referrals:
UNKNOWN - PT DOES,NOT KNOW [Unknown Provider] -
Interventions
Interventions:
*Risk Screen - Suicide Last Done: 09/22/23 16:01
*General Assessment Last Done: 09/22/23 16:01
*Neglect/Abuse Screening Last Done: 09/22/23 16:01
ED-Skin Assessment Last Done: 09/22/23 16:32
Discharge Date and Time
Print Language: CYPRIOT
[2023-09-22 16:53] LABS: % Basophils 0.5 % (0-2); % Eosinophils 2.2 % (0-6); % Immature Granulocytes 0.4 % (0-0.5); % Lymphocytes 21.8 % (20.5-51.1); % Monocytes 6.7 % (1.7-9.3); % Neutrophils 68.4 % (42.2-75.2); Absolute Eosinophils 0.2 10^3/uL (0-0.7); Absolute Lymphocytes 1.7 10^3/uL (1.2-3.4); Absolute Monocytes 0.5 10^3/uL (0.1-0.6); Absolute Neutrophils 5.4 10^3/uL (1.4-6.5); Hematocrit 41.4 % (39.0-52.0); Hemoglobin 14.3 g/dL (13.0-18.0); Mean Corp Hgb Conc. 34.5 g/dL (33.0-37.0); Mean Corpuscular Hgb 32.1 pg (27.0-31.0); Mean Platelet Volume 11.1 fL (7.4-10.4); Nucleated Red Blood Cells % 0 % (-); Platelet Count 166 10^3/uL (130-400); Red Blood Cell Count 4.45 10^6/uL (4.70-6.10); Red Cell Dist. Width 14.2 % (11.5-14.5); White Blood Cell Count 7.8 10^3/uL (4.8-10.8)
[2023-09-22 17:12] LABS: Erythrocyte Sed Rate 18 mm/hour (0-20)
[2023-09-22 17:14] LABS: ALT (SGPT) 14 U/L (0-50); AST (SGOT) 18 U/L (17-59); Albumin 4.5 g/dl (3.5-5.0); Alkaline Phosphatase 111 U/L (38-126); Blood Urea Nitrogen 32 mg/dl (9-20); Calcium 9.6 mg/dl (8.4-10.2); Carbon Dioxide 23 mmol/L (22-30); Estimated Creatinine Clearance 62 ml/min; Glucose 183 mg/dl (70-99); Potassium 4.5 mmol/L (3.5-5.1); Sodium 137 mmol/L (135-145); Total Bilirubin 0.7 mg/dl (0.2-1.3); eGFR > 60.00
[2023-09-22 17:18] VITALS: BP 115/68
[2023-09-22 17:27] LABS: Chloride 100 mmol/L (98-107)
[2023-09-22] MEDS: TYLENOL 1000 MG PO (17:30)
--- NOTE | 2023-09-22 18:20 | HPS.HSE ---
Addendum entered and electronically signed by Lj Pulido MD 09/22/23 18:46:
I saw and examined the patient.
The MEDICARE SPECIALIST's note was reviewed and I agree with the note.
77-year-old male with history of severe PAD, chronic left tibial wound, history of A-fib on warfarin, history of AAA s/p bioprosthetic AVR, history of palpitation with other chronic comorbidities came to ER for having nonhealing left tibial wound.
Patient have undergone left lower extremity angio graft/lithotripsy of tibioperoneal/proximal peroneal artery and distal SFA and above-knee popliteal artery occlusion in August 06. Patient underwent right leg angiography/angioplasty with stent
placement of superficial femoral artery/right popliteal artery and right external iliac artery in August 06 as well. Patient was seen by vascular surgery in the office and was felt to having worsening of left leg wound. Patient was instructed to come
to ER for further evaluation for possible plastic surgery intervention.
HEENT: No pallor, cyanosis, or jaundice. Throat clear.
NECK: Supple. No JVD.
RESPIRATORY: Lungs clear to auscultation.
CVS: S1, S2 normal. RRR. No murmur, rub or gallop.
ABDOMEN: Soft, non-tender. No distension. BS+/normal.
EXTREMITIES: Left mid tibial linear approximately 5 x 2 cm dry superficial wound, no drainage, mild erythema on the edge. Left lateral calf 2 cm linear superficial dry wound. Right leg lateral malleolar superficial wound, dry
CENTER MEDICAL DIRECTOR: AOx3. No focal deficits.
1. Left leg non healing wound
Severe PAD
-Nonhealing left medial tibial level wound for more than 8 months. have undergone left lower extremity angiography/lithotripsy.
-X-ray surprisingly does not show any change of osteomyelitis, suspected some amount of dried/mummified tissue covering the bone? limiting deeper infection
-No signs of systemic sepsis/ongoing localized soft tissue cellulitis
-Hold on any antibiotics right now
-Vascular surgery and plastic surgeon have been involved in care and await further evaluation
2. Spp-mjcucwn-qcvspygek diabetes mellitus
-Uncontrolled with last A1c close to 8 in April recheck
-Hold metformin/glipizide and maintain on Jardiance and insulin sliding scale
3. HOCM
-No signs of volume overload/heart failure exacerbation
-Continue with oral Lasix home dose
Full code
-
Original Note:
Family Physician
-
Family Physician: Markus Segovia
Chief Complaint
-
Worsening left lower extremity wound
History of Present Illness
Patient is a 77 y/o male past medical history of peripheral artery disease, diabetes, cardiomyopathy and a-fib who presents with worsening left lower extremity wound. Patient reports he has had a wound over his left silva for the past 8 months. In
July 2023 (two months ago) he had vascular lithotripsy to the left leg. He saw vascular surgery in the office today who referred him to the emergency department as the wound appears to have worsened despite the vascular intervention. Patient denies
any fevers.
Medical History
Past Medical History
Past Medical History: Reports Other
Additional Past Medical History:
Peripheral Vascular Disease s/p Multiple RLE Stents and LLE Intravascular Lithotripsy
Diabetes Mellitus, Type II
Diabetic Neuropathy
Hypertrophic Obstructive Cardiomyopathy
Paroxysmal Atrial Fibrillation
Ventricular Tachycardia s/p ICD
Essential Hypertension
Hyperlipidemia
Past Surgical History: Reports Other
Additional Past Surgical History:
Bioprosthetic Aortic Valve Replacement
Right Metatarsal Bone Resection
Right 5th Toe Amputation
Left Toe Amputation
Cholecystectomy
Social History
Tobacco: Other (Former Cigarette Smoker, Quit at age 32; Currently smokes one cigar per day)
Family History
Family History: Not pertinent
Allergies / Home Medications
Allergies reflects when Allergies were last updated in [facility].
Home Medications with original date entered in [facility]
Allergy/Medication List:
Allergies
Allergy/AdvReac Type Severity Reaction Status Date / Time
iodine [Iodine] Allergy Severe nausea/vomi Verified 09/22/23 16:03
ting
lisinopril Allergy Severe 'light Verified 09/22/23 16:03
sweats,
achiness,
fatigue'
piperacillin Allergy Severe Rash Verified 09/22/23 16:03
clopidogrel [From Plavix] Allergy Intermediate ? Verified 09/22/23 16:03
nausea,tiredness
Iodinated Contrast Media Allergy Intermediate nausea, Verified 09/22/23 16:03
vomiting
pravastatin [Pravastatin] Allergy Intermediate nausea,tire Verified 09/22/23 16:03
dness
simvastatin [Simvastatin] Allergy Intermediate nausea/tire Verified 09/22/23 16:03
dness
tazobactam Allergy Intermediate Rash Verified 09/22/23 16:03
Home Medications
glipizide 5 mg tablet 10 mg PO BID Diabetes 01/27/17
metformin 1,000 mg tablet 1,000 mg PO BID Diabetes 01/27/17
potassium chloride 20 mEq tablet,extended release(part/cryst) (Klor-Con M) 20 meq PO BID electrolyte repletion 01/27/17
cinnamon bark 500 mg capsule (Cinnamon) 500 mg PO DAILY Supplement 02/13/17
furosemide 40 mg tablet (Lasix) 80 mg PO DAILY Fluid retention/Swelling 12/10/17
cyanocobalamin (vitamin B-12) 1,000 mcg tablet 1,000 mcg PO DAILY Supplement 05/02/18
turmeric root extract 500 mg capsule 900 mg PO DAILY Supplement 05/02/18
warfarin 5 mg tablet (Jantoven) 5 mg PO MOTUWEFRSA Blood clot prevention/tx 05/02/18
warfarin 5 mg tablet (Jantoven) 7.5 mg PO SUTH Blood clot prevention/tx 05/02/18
losartan 25 mg tablet 25 mg PO DAILY 06/01/19
cholecalciferol (vitamin D3) 25 mcg (1,000 unit) capsule (Vitamin D3) 25 mcg PO DAILY 06/08/20
chromium picolinate 1,000 mcg tablet 500 mcg PO DAILY 06/08/20
empagliflozin 25 mg tablet (Jardiance) 25 mg PO DAILY 09/25/22
furosemide 40 mg tablet 40 mg PO QPM 09/25/22
tamsulosin 0.4 mg capsule (Flomax) 0.4 mg PO QPM 09/25/22
aspirin 81 mg tablet,delayed release (Ecotrin Low Strength) 81 mg PO DAILY #30 tabs 09/30/22
fenugreek seed extract 610 mg PO DAILY 07/16/23
Review of Systems
-
A 12 point ROS was completed and negative except as noted: Yes
Constitutional: Denies Fever or Chills
Respiratory: Denies Cough or Trouble Breathing
Cardiac: Denies Chest Pain or Palpitations
Physical Exam
Vital Signs
Vital Signs
Temp Pulse Resp BP Pulse Ox
98.0 F 71 18 115/68 99
09/22/23 17:19 09/22/23 17:18 09/22/23 17:18 09/22/23 17:18 09/22/23 17:18
Physical Exam
General: Comfortable and Conversant
HEENT: Anicteric and Moist mucous membranes
Respiratory: Clear and Non Labored Respirations
Cardiac: S1/S2, Regular Rhythm and Murmur
GI: Soft and Non Tender
Musculoskeletal: No Clubbing, No Cyanosis and No Edema
Skin: Other (Left Silva Wound with dry gangrene; Small left lateral calf wound)
Neuro: Awake, Alert, Oriented and Nonfocal/grossly intact
Laboratory Results
-
09/22/23 16:44
09/22/23 16:44
Laboratory Results
Total Bilirubin 0.7 mg/dl (0.2-1.3) 09/22/23 16:44
AST 18 U/L (17-59) 09/22/23 16:44
ALT 14 U/L (0-50) 09/22/23 16:44
Alkaline Phosphatase 111 U/L (38-126) 09/22/23 16:44
Data Reviewed
-
Diagnostic Radiology: Report Reviewed by me
Lab Data: Labs Reviewed by me
Impression/Plan
-
Worsening Left Silva Wound
-Consult Vascular Surgery
-Consult Plastic Surgery
Peripheral Vascular Disease s/p Multiple RLE Stents and LLE Intravascular Lithotripsy
-Continue aspirin
Diabetes Mellitus, Type II
-Hold Glipizide and Metformin
-Continue Jardiance
-Check HgbA1c
-Monitor sugars and continue coverage insulin
Hypertrophic Obstructive Cardiomyopathy
-Continue Lasix
-Monitor Is&Os and Daily Weights
Paroxysmal Atrial Fibrillation
-Await PT/INR
-Hold Coumadin for possible arteriogram
Essential Hypertension
-Continue losartan
BPH
-Continue Flomax
Hx Ventricular Tachycardia s/p ICD
DVT Proph: Coumadin when able
Code Status: Full Code
[2023-09-22 18:35] VITALS: BP 109/56
[2023-09-22 18:56] LABS: INR 3.77; PT 37.2 Sec (11.4-14.6)
--- NOTE | 2023-09-22 20:01 | PTCARENOTE ---
Pt received from ED to rm [id number]. Pt oriented to room and call saldaña.
[2023-09-22 20:46] VITALS: BP 99/49; BMI 23.9
[2023-09-22] MEDS: KCL 20 MEQ PO (20:46)
[2023-09-22 20:55] VITALS: BMI 23.9
[2023-09-22 21:45] LABS: Glucose - Point of Care 99 mg/dl (70-99)
[2023-09-22] MEDS: TYLENOL 650 MG PO (23:44)
[2023-09-23 00:13] VITALS: BP 100/54
[2023-09-23] MEDS: TYLENOL 650 MG PO ×4 (06:12→22:12)
[2023-09-23 07:30] VITALS: BP 99/50
[2023-09-23 07:43] LABS: INR 2.89; PT 30.7 Sec (11.4-14.6)
--- NOTE | 2023-09-23 07:47 | W.PN.UPDATE ---
Update Note
Progress Note Update
Seen in office yesterday with PA in the office. We had extensive discussion with the patient and the family. Concern for left lower extremity pretibial osteomyelitis with potential exposed bone versus dry gangrene. Difficult to say as the tissues
very hard and there and this may be dry gangrene overlying bone directly. Therefore limb viability comes into question. Duplex demonstrates re-occlusion of his SFA which was prior opened up endovascularly. Therefore discussed with patient and
recommended admission to the emergency room given these findings and need for more expeditious workup. X-ray evaluation (which I reviewed does not demonstrate anything telling). Ideally would favor an MRI but due to pacer patient unable to obtain.
I have asked Dr. Soto from plastic surgery to see the patient to determine if he thinks this pretibial wound/gangrene area would be salvageable in terms of the limb. Because if it is frankly exposed bone given its location there may be no
coverage options. He will see the patient today. (Limitations, however, given peripheral arterial disease history, angioplasty/stented SFA at best, and single-vessel peroneal runoff --all these compound potential free flap coverage if needed). If
it is felt that this is salvageable, then likely will plan angiography tomorrow with reestablishment of inline flow, with possible concomitant debridement of the site.
Seen and examined today. No significant changes. Discussed plan with patient.
[2023-09-23 07:48] LABS: Glucose - Point of Care 98 mg/dl (70-99)
[2023-09-23 08:07] LABS: Blood Urea Nitrogen 29 mg/dl (9-20); Calcium 9.1 mg/dl (8.4-10.2); Carbon Dioxide 26 mmol/L (22-30); Chloride 103 mmol/L (98-107); Estimated Creatinine Clearance 61 ml/min; Glucose 85 mg/dl (70-99); Potassium 4.2 mmol/L (3.5-5.1); Sodium 137 mmol/L (135-145); eGFR > 60.00
[2023-09-23] MEDS: NOVOLOG FLEXPEN-MODERATE RESISTANCE SC (08:20)
[2023-09-23] MEDS: LASIX 80 MG PO (08:27)
[2023-09-23] MEDS: VITAMIN D3 (cholecalciferol) 25 MCG PO (08:27)
[2023-09-23] MEDS: JARDIANCE 25 MG PO (08:27)
[2023-09-23] MEDS: KCL 20 MEQ PO ×2 (08:27→20:10)
[2023-09-23] MEDS: ASPIR LOW (ENTERIC COATED) 81 MG PO (08:27)
[2023-09-23] MEDS: COZAAR 25 MG PO (08:27)
[2023-09-23 09:19] LABS: Hematocrit 37.5 % (39.0-52.0); Hemoglobin 12.8 g/dL (13.0-18.0); Mean Corp Hgb Conc. 34.1 g/dL (33.0-37.0); Mean Corpuscular Hgb 31.3 pg (27.0-31.0); Mean Corpuscular Volume 91.7 fL (80.0-94.0); Mean Platelet Volume 11.7 fL (7.4-10.4); Platelet Count 163 10^3/uL (130-400); Red Blood Cell Count 4.09 10^6/uL (4.70-6.10); Red Cell Dist. Width 14.2 % (11.5-14.5); White Blood Cell Count 7.5 10^3/uL (4.8-10.8)
--- NOTE | 2023-09-23 09:49 | WOUNDNOTE ---
L LATERAL LOWER LEG
--- NOTE | 2023-09-23 09:51 | WOUNDNOTE ---
NATALIA RN note: Patient admitted with leg wounds and PAD, sent from Dr. Marrero's office.
See H&P for complete history.
PMH: Smokes cigars, CHF, ND, a fib (Coumadin), CM, AICD, AVR, PAD-revascularization both legs, DM, R plantar 1st and 5th MTH ulcer, L 1st toe amp, R 5th toe amp, L 3rd toe amp, neuropathy in feet.
Wound Location and type/assessment: Patient known to service, last seen 06/01/19 for R plantar foot ulcer. Today patient has Large dry arterial ulcer on L silva with smaller dry arterial wound laterally. R lateral ankle with arterial/diabetic ulcer,
scant drainage, base with adherent thin layer of slough. Patient states he currently has been keeping ulcers dry with alginate dressing and Betadine to L silva. Patient states plan is for revascularization later in week. Dr. Soto also on consult,
will be in later today states nursing. Both feet stable, no open ulcers, heels intact.
Appetite: Excellent.
Pressure redistribution devices in place: versa care air, patient is ad marcus.
Plan: Silicone border foam dressing applied to L leg dry ulcers, Betadine over ulcers to start tomorrow. R lateral ankle applied smear of honey gel, adaptic, gauze and silicone foam. Vascular and plastic surgeon following, will follow and update
wound care orders as needed. Will confirm with vascular and updated nurse Rc.
Spd called for supplies and at bedside. Nursing care plan to be updated. will follow as needed.
[2023-09-23 10:01] VITALS: BMI 23.8
[2023-09-23 11:04] LABS: Glycohemoglobin (HgbA1c) 6.8 % (4.0-5.6)
[2023-09-23 12:22] LABS: Glucose - Point of Care 154 mg/dl (70-99)
[2023-09-23] MEDS: NOVOLOG FLEXPEN-MODERATE RESISTANCE 1 UNITS SC (12:32)
--- NOTE | 2023-09-23 13:18 | W.PN.HOSP.TC ---
Today's Communication/Plan
-
for LE angio tomorrow
Assessment / Plan
Assessment / Plan
1. Left leg non healing wound
Severe PAD
-Nonhealing left medial tibial level wound for more than 8 months. have undergone left lower extremity angiography/lithotripsy.
-X-ray surprisingly does not show any change of osteomyelitis, suspected some amount of dried/mummified tissue covering the bone? limiting deeper infection
-No signs of systemic sepsis/ongoing localized soft tissue cellulitis
-Hold on any antibiotics right now
-Vascular surgery evaluated and plan for angiography tomorrow.
-Await plastic surgery input
2. Ulq-fncydfi-vngvppfay diabetes mellitus
-Uncontrolled with last A1c close to 8 in April recheck
-Hold metformin/glipizide and maintain on Jardiance and insulin sliding scale
3. HOCM
-No signs of volume overload/heart failure exacerbation
-Continue with oral Lasix home dose
Full code
Anticipated Discharge: > 48 hours
Subjective/Interval History
-
Date of Service: September 23, 2023
No new issues overnight
Objective Data
-
Labs:
Laboratory Results
09/23/23
06:54
WBC 7.5
Hgb 12.8 L
Hct 37.5 L
Plt Count 163
PT 30.7 H
INR 2.89
Sodium 137
Potassium 4.2
Chloride 103
Carbon Dioxide 26
BUN 29 H
Creatinine 1.1
Glucose 85
Calcium 9.1
Vital Signs:
Vital Signs
Temp Pulse Resp BP Pulse Ox
97.7 F 71 18 99/50 96
09/23/23 07:30 09/23/23 07:30 09/23/23 07:30 09/23/23 07:30 09/23/23 07:30
I&O
09/22/23 09/23/23 09/24/23
06:59 06:59 06:59
Intake Total 480 / 480
Balance 480 / 480
Review of Systems
-
Respiratory: Reports No Symptoms
Cardiac: Reports No Symptoms
Abdomen/GI: Reports No Symptoms
Physical Exam
-
General: No Apparent Distress and Comfortable
HEENT: Negative Oxygen
Respiratory: Clear to Auscultation
Cardiac: Regular Rhythm and S1/S2; Negative Murmur or Rub
GI: Soft, Nontender, Nondistended and Normal Bowel Sounds
Musculoskeletal: No Edema
Neuro: Awake, Alert, Oriented, No Motor Deficits and Nonfocal/Grossly Intact
Psych: Calm
[2023-09-23 15:00] VITALS: BP 107/57
--- NOTE | 2023-09-23 16:07 | CM ---
Patient seen bedside.
Patient lives with spouse in a 2 story home with B+B second floor.
Powder room on the 1st floor.
Independent prior to admission.
Ambulates with a cane.
no hx snf or rehab.
had [facility] inthe remote past s/p cardiac surgery.
Plan for OR tomorrow.
PCP: Dr Segovia
Pharmacy: [facility]
Plan: home no needs anticipated.
[2023-09-23 16:32] LABS: Glucose - Point of Care 250 mg/dl (70-99)
[2023-09-23] MEDS: FLOMAX 0.4 MG PO (17:29)
[2023-09-23] MEDS: LASIX 40 MG PO (17:29)
[2023-09-23] MEDS: NOVOLOG FLEXPEN-MODERATE RESISTANCE 5 UNITS SC (17:30)
--- NOTE | 2023-09-23 18:12 | CON.PS ---
Consultation - Plastic Surgery
Consultation Request
Date/Time Consultation Requested: 09/23/2023
Date/Time Consultation Performed: 09/23/2023
Requesting Provider: Dylan Palomo MD
Performing Provider: LUCAS Soto MD
Reason for Consultation: left lower extremity wound
Medical History
-
Chief Complaint: left lower extremity wound
History of Present Illness:
77-year-old male with a long history of vascular disease status post prior angioplasty and stent placement of the left SFA. He developed an ulcer overlying the left silva which is necrotic in nature and down to bone. He was admitted to the ED and
vascular surgery requested consultation for potential limb salvage. of note, he was previously reported to have single-vessel runoff through the diseased peroneal that became diminutive at the level of the popliteal fossa.
Past Medical History
Past Medical History: Other
Past Surgical History: Other
Allergies / Home Medications
Allergy/AdvReac Type Severity Reaction Status Date / Time
iodine [Iodine] Allergy Severe nausea/vomi Verified 09/22/23 16:03
ting
lisinopril Allergy Severe 'light Verified 09/22/23 16:03
sweats,
achiness,
fatigue'
piperacillin Allergy Severe Rash Verified 09/22/23 16:03
clopidogrel [From Plavix] Allergy Intermediate ? Verified 09/22/23 16:03
nausea,tiredness
Iodinated Contrast Media Allergy Intermediate nausea, Verified 09/22/23 16:03
vomiting
pravastatin [Pravastatin] Allergy Intermediate nausea,tire Verified 09/22/23 16:03
dness
simvastatin [Simvastatin] Allergy Intermediate nausea/tire Verified 09/22/23 16:03
dness
tazobactam Allergy Intermediate Rash Verified 09/22/23 16:03
�Medication �Instructions �Recorded �Confirmed �Type
glipizide 5 mg tablet 10 mg PO BID Diabetes 01/27/17 09/22/23 History
metformin 1,000 mg tablet 1,000 mg PO BID Diabetes 01/27/17 09/22/23 History
potassium chloride 20 mEq 20 meq PO BID electrolyte repletion 01/27/17 09/22/23 History
tablet,extended
release(part/cryst) (Klor-Con M)
cinnamon bark 500 mg capsule 500 mg PO DAILY Supplement 02/13/17 09/22/23 History
(Cinnamon)
furosemide 40 mg tablet (Lasix) 80 mg PO DAILY Fluid 12/10/17 09/22/23 History
retention/Swelling
cyanocobalamin (vitamin B-12) 1,000 mcg PO DAILY Supplement 05/02/18 09/22/23 History
1,000 mcg tablet
turmeric root extract 500 mg 900 mg PO DAILY Supplement 05/02/18 09/22/23 History
capsule
warfarin 5 mg tablet (Jantoven) 5 mg PO MOTUWEFRSA Blood clot 05/02/18 09/22/23 History
prevention/tx
warfarin 5 mg tablet (Jantoven) 7.5 mg PO SUTH Blood clot 05/02/18 09/22/23 History
prevention/tx
losartan 25 mg tablet 25 mg PO DAILY Blood Pressure 06/01/19 09/22/23 History
cholecalciferol (vitamin D3) 25 25 mcg PO DAILY Supplement 06/08/20 09/22/23 History
mcg (1,000 unit) capsule (Vitamin
D3)
chromium picolinate 1,000 mcg 500 mcg PO DAILY Supplement 06/08/20 09/22/23 History
tablet
empagliflozin 25 mg tablet 25 mg PO DAILY Diabetes 09/25/22 09/22/23 History
(Jardiance)
furosemide 40 mg tablet 40 mg PO QPM Fluid 09/25/22 09/22/23 History
Retention/Swelling
tamsulosin 0.4 mg capsule (Flomax) 0.4 mg PO QPM Urinary Issue 09/25/22 09/22/23 History
aspirin 81 mg tablet,delayed 81 mg PO DAILY #30 tabs 09/30/22 09/22/23 Rx
release (Ecotrin Low Strength)
fenugreek seed extract 610 mg PO DAILY Supplement 07/16/23 09/22/23 History
Physical Exam
Vital Signs
Temp 97.8 F 09/23/23 15:00
Temp route: Oral 09/23/23 15:00
Pulse 71 09/23/23 15:00
Resp Rate 14 09/23/23 15:00
Blood pressure 107/57 09/23/23 15:00
Blood pressure extremity used: Right upper arm 09/23/23 15:00
Position: Lying 09/23/23 15:00
MAP 72 09/22/23 18:35
SaO2 97 09/23/23 15:00
Oxygen Mode of Delivery Room air 09/23/23 15:00
Can the patient verbally communicate their pain? Yes 09/23/23 17:29
Pain scale ratin 09/23/23 17:29
Actual Weight 170 lb 7 oz 09/23/23 10:01
Body Mass Index (BMI) 23.8 09/23/23 10:01
Lab Results
09/23/23 06:54
09/23/23 06:54
Physical exam:
No acute distress
No increased work of breathing
Alert and interactive
Left lower extremity with anterior dry eschar with exposed desiccated bone
no evidence of purulence or erythema
Assessment / Plan
-
severe vascular disease with left lower extremity ulcer, exposed bone
Had a long discussion with the patient and his family about limb salvage versus below-knee amputation. Indications for limb salvage are an ambulatory patient, adequate blood flow to promote healing, treatment of any underlying osteomyelitis or
infection, and an expectation of achieving stable soft tissue coverage. Alternative is BKA which will provide functionality through a prosthesis.
For step in determining candidacy for limb salvage will be determining vascular status. This was discussed with Dr. Palomo. He will take the patient for an angiogram and stenting/plasty as needed. In the event that there is evidence of improved
perfusion to the left lower extremity that can support wound healing, neck step will be consideration of managing the bony debridement of the tibia. This will likely require long-term antibiotics. Finally, consideration could be given for soft
tissue coverage. This will be dependent upon the vascular status of the patient at that time and whether and acceptable recipient site for free tissue transfer versus alternative approach could be obtained.
[2023-09-23 22:03] LABS: Glucose - Point of Care 225 mg/dl (70-99)
[2023-09-23 23:40] VITALS: BP 126/65
[2023-09-24] VITALS (16 sets, daily range): BP systolic 94–119; BP diastolic 45–82; BMI 23.9
[2023-09-24 06:35] LABS: Glucose - Point of Care 156 mg/dl (70-99)
[2023-09-24] MEDS: NOVOLOG FLEXPEN-MODERATE RESISTANCE 1 UNITS SC (06:39)
--- NOTE | 2023-09-24 07:29 | W.PN.UPDATE ---
Update Note
Progress Note Update
Seen and evaluated this morning. Left calf wound stable. Tibia exposed unchanged. Seen by Dr. Soto, plastic surgery yesterday. I discussed case with him extensively. Challenging limb salvage situation. Frankly exposed bone. However the
patient does ambulate, and therefore could be considered a candidate for limb salvage. However, he has significant peripheral arterial disease which may complicate free flap transfer given not ideal situation in terms of inflow arteries. In
addition, not clear if bone resection would be achievable from an orthopedic standpoint. Discussed this all with him. These may be limiting circumstances that may affect his limb salvage ability. Will plan on performing arteriogram today. At
that time we will assess perfusion and can decide if worth treating endovascularly again, or if patient better served with a bypass in the event that he is a limb salvage candidate. Patient understands all wishes to proceed.
[2023-09-24 08:18] LABS: INR 1.78; PT 20.9 Sec (11.4-14.6)
[2023-09-24 09:10] LABS: Hematocrit 38.6 % (39.0-52.0); Hemoglobin 13.2 g/dL (13.0-18.0); Mean Corp Hgb Conc. 34.2 g/dL (33.0-37.0); Mean Corpuscular Hgb 31.8 pg (27.0-31.0); Mean Platelet Volume 11.8 fL (7.4-10.4); Platelet Count 144 10^3/uL (130-400); Red Blood Cell Count 4.15 10^6/uL (4.70-6.10); Red Cell Dist. Width 14.1 % (11.5-14.5); White Blood Cell Count 6.5 10^3/uL (4.8-10.8)
[2023-09-24] MEDS: KCL 20 MEQ PO ×2 (09:41→20:08)
[2023-09-24] MEDS: LASIX 80 MG PO (09:42)
[2023-09-24] MEDS: ASPIR LOW (ENTERIC COATED) 81 MG PO (09:42)
[2023-09-24] MEDS: JARDIANCE 25 MG PO (09:42)
[2023-09-24] MEDS: COZAAR 25 MG PO (09:42)
[2023-09-24] MEDS: VITAMIN D3 (cholecalciferol) 25 MCG PO (09:42)
[2023-09-24 10:29] LABS: Blood Urea Nitrogen 27 mg/dl (9-20); Calcium 9.1 mg/dl (8.4-10.2); Carbon Dioxide 27 mmol/L (22-30); Chloride 101 mmol/L (98-107); Estimated Creatinine Clearance 67 ml/min; Glucose 127 mg/dl (70-99); Sodium 137 mmol/L (135-145); eGFR > 60.00
[2023-09-24 11:30] LABS: Glucose - Point of Care 152 mg/dl (70-99)
--- NOTE | 2023-09-24 11:34 | PTCARENOTE ---
Patient scheduled for LLE arteriogram with possible HAND POTTER/stent. Patient's jardiance was not held and patient received his dose this morning. Dr. Vasquez aware. To proceed with procedure as scheduled. Accucheck 152. According to patient, his last dose
of coumadin was on 09/22/2023 pm. Today patient's PT was 20.9 & INR 1.78. ISAAK Graves aware. Additionally, No preprocedure IV fluids ordered and verified with ISAAK Graves that IV fluids not needed at this time.
--- NOTE | 2023-09-24 11:51 | PTCARENOTE ---
Patient's electronic medical record states that patient is allergic to iodinated contrast. Confirmed with patient that his reaction to contrast is limited to nausea and vomiting. Dr. Vasquez and ISAAK Graves aware and agreed that no
premedication is necessary since it is not a true allergy.
--- NOTE | 2023-09-24 13:27 | W.SUR.POST ---
Surgical Immediate Post Op
Note
Pre Op Diagnosis: PAD
Post Op Diagnosis: Same
Procedure Performed: Left lower extremity arteriogram, balloon angioplasty/stent SFA and AK popliteal artery
Primary Surgeon: Dewey
Anesthesia: Local and sedation
Estimated Blood Loss: 2 cc
Fluids: See anesthesia flow sheet
Drains/Shunts: None
Specimens/Cultures: None
Doppler/Duplex/Angio (Y/N): Y
Complications: None
Operative Findings: none
[2023-09-24 13:30] LABS: Glucose - Point of Care 142 mg/dl (70-99)
[2023-09-24] MEDS: NSS 1000 IV (14:16)
[2023-09-24] MEDS: NOVOLOG FLEXPEN-MODERATE RESISTANCE SC ×2 (14:46→16:18)
--- NOTE | 2023-09-24 15:10 | W.PN.HOSP.TC ---
Today's Communication/Plan
-
for angiography today
Assessment / Plan
Assessment / Plan
1. Left leg non healing wound
Severe PAD
-Nonhealing left medial tibial level wound for more than 8 months. have undergone left lower extremity angiography/lithotripsy.
-X-ray surprisingly does not show any change of osteomyelitis, suspected some amount of dried/mummified tissue covering the bone? limiting deeper infection
-No signs of systemic sepsis/ongoing localized soft tissue cellulitis
-Hold on any antibiotics right now
-Vascular surgery taking patient to angiography today
-Plastic surgery evaluated await input
2. Hzv-wzadgvf-hmlclulrw diabetes mellitus
-Uncontrolled with last A1c close to 8 in April recheck
-Hold metformin/glipizide and maintain on Jardiance and insulin sliding scale
3. HOCM
-No signs of volume overload/heart failure exacerbation
-Continue with oral Lasix home dose
Full code
Anticipated Discharge: > 48 hours
Subjective/Interval History
-
Date of Service: September 24, 2023
No reported issues overnight
Objective Data
-
Labs:
Laboratory Results
09/24/23 09/24/23
07:51 08:29
WBC 6.5
Hgb 13.2
Hct 38.6 L
Plt Count 144
PT 20.9 H
INR 1.78
Sodium 137
Potassium 4.0
Chloride 101
Carbon Dioxide 27
BUN 27 H
Creatinine 1.0
Glucose 127 H
Calcium 9.1
Vital Signs:
Vital Signs
Temp Pulse Resp BP Pulse Ox
97.4 F 70 16 111/54 100
09/24/23 14:56 09/24/23 14:56 09/24/23 14:56 09/24/23 14:56 07/11/24 14:56
I&O
09/23/23 09/24/23 09/25/23
06:59 06:59 06:59
Intake Total 480 / 480 840 / 840 150 / 150
Output Total 700 / 700
Balance 480 / 480 840 / 840 -550 / -550
Physical Exam
-
General: No Apparent Distress and Comfortable
HEENT: Negative Oxygen
Respiratory: Clear to Auscultation
Cardiac: Regular Rhythm and S1/S2; Negative Murmur or Rub
GI: Soft, Nontender, Nondistended and Normal Bowel Sounds
Skin: Other (Left leg midtibial 2x5 cm linear dry wound)
Neuro: Awake, Alert, Oriented, No Motor Deficits and Nonfocal/Grossly Intact
Psych: Calm
[2023-09-24 16:12] LABS: Glucose - Point of Care 132 mg/dl (70-99)
[2023-09-24] MEDS: FLOMAX 0.4 MG PO (17:22)
[2023-09-24] MEDS: LASIX 40 MG PO (17:22)
[2023-09-24 22:02] LABS: Glucose - Point of Care 284 mg/dl (70-99)
[2023-09-25 06:06] VITALS: BMI 24.0
[2023-09-25 07:25] VITALS: BP 93/43
[2023-09-25 07:48] LABS: Glucose - Point of Care 176 mg/dl (70-99)
[2023-09-25 07:50] LABS: APTT 32.3 Sec (23.4-35.0); INR 1.57; PT 18.6 Sec (11.4-14.6)
[2023-09-25 08:12] LABS: Hematocrit 35.9 % (39.0-52.0); Hemoglobin 12.2 g/dL (13.0-18.0); Mean Corpuscular Hgb 31.1 pg (27.0-31.0); Mean Corpuscular Volume 91.6 fL (80.0-94.0); Platelet Count 153 10^3/uL (130-400); Red Blood Cell Count 3.92 10^6/uL (4.70-6.10); White Blood Cell Count 8.8 10^3/uL (4.8-10.8)
[2023-09-25 08:23] LABS: Blood Urea Nitrogen 27 mg/dl (9-20); Calcium 8.8 mg/dl (8.4-10.2); Carbon Dioxide 22 mmol/L (22-30); Chloride 103 mmol/L (98-107); Estimated Creatinine Clearance 56 ml/min; Glucose 160 mg/dl (70-99); Potassium 4.2 mmol/L (3.5-5.1); Sodium 135 mmol/L (135-145); eGFR > 60.00
[2023-09-25] MEDS: NOVOLOG FLEXPEN-MODERATE RESISTANCE 1 UNITS SC (08:30)
[2023-09-25] MEDS: ASPIR LOW (ENTERIC COATED) 81 MG PO (08:31)
[2023-09-25] MEDS: JARDIANCE 25 MG PO (08:32)
[2023-09-25] MEDS: VITAMIN D3 (cholecalciferol) 25 MCG PO (08:32)
[2023-09-25] MEDS: KCL 20 MEQ PO (08:32)
[2023-09-25] MEDS: COZAAR PO (08:36)
[2023-09-25] MEDS: LASIX PO (08:37)
--- NOTE | 2023-09-25 09:00 | W.PN.VS ---
Today's Communication / Plan
-
See below.
Assessment/Plan
-
Assessment: 77-year-old male POD #1 Left lower extremity arteriogram, balloon angioplasty/stent SFA and AK popliteal artery
Plan:
Okay to reinitiate blood thinner Coumadin from a vascular surgery perspective
Patient can remove right groin dressing later this afternoon
Follow-up ultrasound and appointment place and discharge instructions
Reeducated and stressed to patient importance of following up with plastic surgeon Dr. Webb within the next 2 weeks, office contact left on discharge instructions
Please call with questions or concerns
Subjective Data
-
Date of Service: September 25, 2023
Patient seen and evaluated at chair side, offers no complaints but does report eagerness for discharge. Denies nausea, vomiting, fever, and chills. Denies right groin pain or swelling.
Objective Data
-
Vital Signs
Temp Pulse Resp BP Pulse Ox
99.0 F 72 18 91/43 96
09/25/23 07:25 09/25/23 07:25 09/25/23 07:25 09/25/23 08:36 09/25/23 07:25
Intake and Output
09/24/23 09/25/23 09/26/23
06:59 06:59 06:59
Intake Total 840 / 840 930 / 930
Output Total 1150 / 1150
Balance 840 / 840 -220 / -220
Intake:
Oral fluids 840 / 840 480 / 480
IV fluids (Total) 450 / 450
NSS 150 / 150
Output:
Urine, Voided 1150 / 1150
Other:
Number of approximated MODERATE 3
amounts of urine
Number of approximated LARGE 3
amounts of urine
Lab Results
09/25/23 07:02
09/25/23 07:02
Calcium 8.8 mg/dl (8.4-10.2) 09/25/23 07:02
Total Bilirubin 0.7 mg/dl (0.2-1.3) 09/22/23 16:44
AST 18 U/L (17-59) 09/22/23 16:44
ALT 14 U/L (0-50) 09/22/23 16:44
Alkaline Phosphatase 111 U/L (38-126) 09/22/23 16:44
Total Protein 7.0 g/dl (6.3-8.2) 09/22/23 16:44
Albumin 4.5 g/dl (3.5-5.0) 09/22/23 16:44
Physical Exam
-
No apparent distress resting in chair comfortably
No tachycardia
No dyspnea on room air
ABD flat, nontender, nondistended
Right groin dressing CDI, no evidence of edema or hematoma, all surrounding compartments soft
Bilateral feet warm
--- NOTE | 2023-09-25 09:19 | W.PN.HOSP.TC ---
Addendum entered and electronically signed by Lj Pulido MD 09/25/23 17:36:
I saw and evaluated the patient. I reviewed the resident�s note and agree with findings and plan as documented in the resident�s note.
Patient underwent successful left femoral/lower popliteal artery stenting by vascular surgery yesterday
On exam no issues at access site
Patient to follow-up with plastic surgery in office for further discussion of option regarding left tibial wound
Patient to follow-up with vascular surgeon in office for postop check
Discharge home
Original Note:
Today's Communication/Plan
-
Status post 2 stents, discharged with outpatient follow-ups
Assessment / Plan
Assessment / Plan
1. Left leg non healing wound
-Severe PAD
-Nonhealing left medial tibial level wound for more than 8 months. have undergone left lower extremity angiography/lithotripsy.
-X-ray does not show any change of osteomyelitis
-No signs of systemic sepsis/ongoing localized soft tissue cellulitis
-Patient afebrile, WBC 8.8
-Hold antibiotics
-Vascular surgery took patient for stenting procedure, received 2 stents
-Plastic surgery evaluated and will follow-up with the patient, as outpatient
-Patient will be discharged home and follow-up outpatient with both vascular and plastic surgery regarding his limb salvaging procedures
-Patient will also follow-up with primary doctor within 1 week
2. Bub-fpuavar-jwjhnoboa diabetes mellitus
-Uncontrolled with last A1c close to 8 in April
-Hold metformin/glipizide and maintain on Jardiance and insulin sliding scale
3. HOCM
-No signs of volume overload/heart failure exacerbation
-Continue with oral Lasix home dose
2000-calorie diabetic diet
Full code
Anticipated Discharge: Today
Subjective/Interval History
-
Date of Service: September 25, 2023
Patient was approved for surgery, awaiting final recommendations on when. Patient would like to be discharged home if possible
Objective Data
-
Labs:
Laboratory Results
09/25/23
07:02
WBC 8.8
Hgb 12.2 L
Hct 35.9 L
Plt Count 153
PT 18.6 H
INR 1.57
APTT 32.3
Sodium 135
Potassium 4.2
Chloride 103
Carbon Dioxide 22
BUN 27 H
Creatinine 1.2
Glucose 160 H
Calcium 8.8
Vital Signs:
Vital Signs
Temp Pulse Resp BP Pulse Ox
99.0 F 72 18 91/43 96
09/25/23 07:25 09/25/23 07:25 09/25/23 07:25 09/25/23 08:36 09/25/23 07:25
I&O
09/24/23 09/25/23 09/26/23
06:59 06:59 06:59
Intake Total 840 / 840 930 / 930
Output Total 1150 / 1150
Balance 840 / 840 -220 / -220
Review of Systems
-
History Source: Patient
Constitutional: Reports No Symptoms; Denies Fever
Respiratory: Reports No Symptoms
Cardiac: Reports No Symptoms
Abdomen/GI: Reports No Symptoms
Musculoskeletal: Reports Other (Patient reports pain in his legs, as well as nonhealing wounds on both legs)
Skin: Reports Sores
Neuro: Reports No Symptoms
Physical Exam
-
General: Well Developed, No Apparent Distress and Comfortable
Respiratory: Clear to Auscultation
Cardiac: Regular Rhythm and S1/S2
GI: Soft, Nontender, Nondistended and Normal Bowel Sounds
Musculoskeletal: No Edema
Skin: Warm, Dry, Lesions and Other (Chronic nonhealing wounds on both legs)
Neuro: Awake, Alert, Oriented and AO x 3
Psych: Calm and Intact Judgement/Insight
Data Reviewed
-
Ultrasound: Report Reviewed by me and Discussed with Physician
Labs: Labs Reviewed by me and Discussed with Physician
--- NOTE | 2023-09-25 09:24 | OR.RPT ---
Operative Report
Operative Report
PROCEDURE DATE: 09/24/2023
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 Severe peripheral arterial disease.
Postoperative diagnosis: Same
Procedure: #1 duplex assisted right common femoral artery cannulation.
2. Aortogram and pelvic angiogram.
3. Left lower extremity arteriogram with third order vessel catheterization of left popliteal artery via right common femoral artery puncture.
4. Balloon angioplasty and stent placement of occluded left superficial femoral/above-knee popliteal artery with 6 mm x 140 mm and 6 mm x 60 mm overlapping Zilver PTX drug-eluting stents.
5. Balloon angioplasty/stent placement with overlapping stent very distal above knee popliteal artery 6 mm x 40 mm Zilver PTX stent.
6. Right femoral angiogram.
7. Supervision interpretation.
Surgeon: Dewey
Ui Software Engineer: None
Complications: None
Anesthesia: Local, sedation
Fluoroscopy:
12.1 min
65 mGy
15.65 Gy.cm2
Indications for procedure:
History of mid tibial gangrenous wound with now exposed tibia. Unclear if this was salvageable. Multidisciplinary approach was undertaken for potential limb salvage. In the interval patient had had prior left lower extremity arteriogram and
angioplasty of distal SFA, and this was noted to be occluded on duplex with drop in his THOMAS. Therefore was brought for attempted revascularization and diagnostic angiography. Risk/benefits/alternatives all fully discussed. Patient understood all
wish to proceed.
Description of procedure:
Patient was identified, brought to the operating room. Placed on the table in the supine position. After the adequate administration of anesthesia, the patient was prepped and draped in the standard surgical fashion. A standard preoperative
timeout was undertaken and everybody was in agreement with the plan.
The right common femoral artery was accessed with a micropuncture kit under direct duplex ultrasound guidance. A 5 Icelandic sheath was then advanced over a 0.035 inch wire, and a hickman's hook catheter was advanced into the abdominal aorta.
Aortogram and pelvic angiogram was obtained. Findings as follows:
Patent distal infrarenal aorta and bilateral common and external iliac arteries. Significant eccentric plaque in the aorta but no significant stenosis. Left external iliac artery stent appeared patent with no significant stenosis.
Using a floppy angled hydrophilic wire, the left common femoral artery was cannulated and the catheter was advanced. Left lower extremity arteriogram was obtained. Findings as follows:
Common femoral artery: Patent with no significant stenosis.
Profunda femoris artery: Patent with severe stenosis focally about 1.5 cm distal to the origin. Beyond here was patent.
Superficial femoral artery: Patent with mild (likely about 20%) stenosis at the origin, patent stent beyond here with no significant in-stent restenosis. Distal to the stent the artery was patent for about 8 to 10 cm and then occluded with large
collateral noted. Reconstituted flow noted in the popliteal artery behind/just above the knee. Continuous flow through the TP trunk and single-vessel peroneal artery runoff noted. Delayed imaging on the foot demonstrated what appears to be a
reconstituted posterior tibial artery at the ankle from peroneal collaterals.
At this point I selectively cannulated the superficial femoral artery. Then exchanged for a 6 Icelandic up and over sheath. The patient was given a total of 6000 units of intravenous heparin. Next under roadmap assisted guidance using subintimal
technique I was able to traverse the occluded SFA and popliteal artery. I was able to gain wire reentry into the true lumen. Catheter followed. Confirmed reentry into the true lumen. I then exchanged for a 0.035 inch wire and ballooned the
occluded segment with a 4 mm angioplasty balloon to predilate it. I next used a 6 mm x 140 mm Zilver PTX with an overlapping 6 mm x 60 mm stent more proximally. Entheses Zilver PTX also). These were post angioplasty with 5 mm balloons.
Completion angiogram now demonstrated good result through the stented segment. In the popliteal artery just distal to the stent, approaching the behind knee segment there was a filling defect type appearance. I could not tell whether this was a
stenosis or an intimal flap. Regardless I felt I should primarily stent this. Therefore I extended an additional 6 mm x 40 mm Zilver PTX stent distally. This was post angioplasty with a 5 mm balloon as well. Now completion angiogram demonstrated
excellent result with good flow through the entirety of the popliteal into the tibioperoneal trunk. I difficulty seeing the origin of the peroneal artery presumably due to wire artifact, but I could not tell if there is a stenosis. I therefore
then exchanged for a 0.014 inch wire to maintain wire access but so that I could see the area better. I now performed angiogram and was able to identify clearly that the peroneal artery was nicely patent and there was no significant stenosis.
There were some luminal irregularities in the peroneal artery diffusely especially in the proximal third, but this was all chronic. At this point I felt that there is nothing further to do from a revascularization standpoint. I withdrew my sheath
to the right external iliac artery. Right femoral angiogram demonstrated good puncture in the right common femoral artery. We therefore then exchanged for a short 6 Icelandic sheath. The wires and catheters were withdrawn. The patient was taken to
the recovery room where manual pressure was applied to the puncture site.
The patient tolerated procedure well. He had a palpable left popliteal pulse upon completion.
[2023-09-25 11:05] VITALS: BP 139/59
[2023-09-25] MEDS: TYLENOL 650 MG PO (11:37)
[2023-09-25 11:54] LABS: Glucose - Point of Care 234 mg/dl (70-99)
[2023-09-25] MEDS: NOVOLOG FLEXPEN-MODERATE RESISTANCE 3 UNITS SC (11:58)
--- NOTE | 2023-09-25 12:19 | W.DCSUMMARY ---
Addendum entered and electronically signed by Lj Pulido MD 09/26/23 07:53:
Read, reviewed, and agree. See same day progress note for additional details. Time spent coordinating care, DC planning, review of DC plan of care with resident, transition of care, review of records in EMR, med rec, consults, notes, d/w
consultants, nursing, family, and CM 40 mins
Original Note:
Documented by User: Luis Brown DO, Resident 09/25/23 13:45
Discharge Summary
Discharge Data
Date of Admission: 09/22/23
Date of Discharge: 09/25/23
-
Pending Results: No
Hospital Course
Discharging Physician : Ashok Brown
Disposition : Home
Primary care physician : Markus Segovia
Principal Discharge diagnosis : Nonhealing left tibial wound
Chronic Discharge diagnosis : Peripheral vascular disease status post multiple right lower extremity stents and left lower extremity intravascular lithotripsy, diabetes mellitus type 2, diabetic neuropathy, hokum, paroxysmal A-fib, ventricular
tachycardia status post ICD, essential hypertension, hyperlipidemia
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 Patient has an extensive vascular history and multiple procedures done. Wound has been present for over a month period.
There was concern for possible chronic osteomyelitis. X-ray did not demonstrate any chronic ostial myelitis findings. Patient was seen by vascular surgery who performed an arteriogram and decided that he was a candidate for vascular procedure.
Limb saving vascular procedure was undergone and patient received 2 stents. He will follow-up in the outpatient setting with both vascular and plastic surgery, as well as primary physician. Patient will be discharged home.
Important imaging findings : 09/22/2023 tibia/fibula x-ray, findings: There is bony demineralization. No acute fractures nor dislocations are noted. There is joint space narrowing of the tibiotalar joint. No bony destruction is noted. No radiopaque
foreign bodies are noted. There is no subcutaneous emphysema of the imaged soft tissues. There is no soft tissue swelling. There are vascular calcifications.
Procedure findings : 09/25/2023:
description of procedure:
Patient was identified, brought to the operating room. Placed on the table in the supine position. After the adequate administration of anesthesia, the patient was prepped and draped in the standard surgical fashion. A standard preoperative
timeout was undertaken and everybody was in agreement with the plan.
The right common femoral artery was accessed with a micropuncture kit under direct duplex ultrasound guidance. A 5 [place]uran sheath was then advanced over a 0.035 inch wire, and a hickman's hook catheter was advanced into the abdominal aorta.
Aortogram and pelvic angiogram was obtained. Findings as follows:
Patent distal infrarenal aorta and bilateral common and external iliac arteries. Significant eccentric plaque in the aorta but no significant stenosis. Left external iliac artery stent appeared patent with no significant stenosis.
Using a floppy angled hydrophilic wire, the left common femoral artery was cannulated and the catheter was advanced. Left lower extremity arteriogram was obtained. Findings as follows:
Common femoral artery: Patent with no significant stenosis.
Profunda femoris artery: Patent with severe stenosis focally about 1.5 cm distal to the origin. Beyond here was patent.
Superficial femoral artery: Patent with mild (likely about 20%) stenosis at the origin, patent stent beyond here with no significant in-stent restenosis. Distal to the stent the artery was patent for about 8 to 10 cm and then occluded with large
collateral noted. Reconstituted flow noted in the popliteal artery behind/just above the knee. Continuous flow through the TP trunk and single-vessel peroneal artery runoff noted. Delayed imaging on the foot demonstrated what appears to be a
reconstituted posterior tibial artery at the ankle from peroneal collaterals.
At this point I selectively cannulated the superficial femoral artery. Then exchanged for a 6 [place]uran up and over sheath. The patient was given a total of 6000 units of intravenous heparin. Next under roadmap assisted guidance using subintimal
technique I was able to traverse the occluded SFA and popliteal artery. I was able to gain wire reentry into the true lumen. Catheter followed. Confirmed reentry into the true lumen. I then exchanged for a 0.035 inch wire and ballooned the
occluded segment with a 4 mm angioplasty balloon to predilate it. I next used a 6 mm x 140 mm Zilver PTX with an overlapping 6 mm x 60 mm stent more proximally. [place] Zilver PTX also). These were post angioplasty with 5 mm balloons.
Completion angiogram now demonstrated good result through the stented segment. In the popliteal artery just distal to the stent, approaching the behind knee segment there was a filling defect type appearance. I could not tell whether this was a
stenosis or an intimal flap. Regardless I felt I should primarily stent this. Therefore I extended an additional 6 mm x 40 mm Zilver PTX stent distally. This was post angioplasty with a 5 mm balloon as well. Now completion angiogram demonstrated
excellent result with good flow through the entirety of the popliteal into the tibioperoneal trunk. I difficulty seeing the origin of the peroneal artery presumably due to wire artifact, but I could not tell if there is a stenosis. I therefore
then exchanged for a 0.014 inch wire to maintain wire access but so that I could see the area better. I now performed angiogram and was able to identify clearly that the peroneal artery was nicely patent and there was no significant stenosis.
There were some luminal irregularities in the peroneal artery diffusely especially in the proximal third, but this was all chronic. At this point I felt that there is nothing further to do from a revascularization standpoint. I withdrew my sheath
to the right external iliac artery. Right femoral angiogram demonstrated good puncture in the right common femoral artery. We therefore then exchanged for a short 6 [place]uran sheath. The wires and catheters were withdrawn. The patient was taken to
the recovery room where manual pressure was applied to the puncture site.
The patient tolerated procedure well. He had a palpable left popliteal pulse upon completion.
Discharge Plan
-
Patient Disposition: Home (Routine Discharge)
Discharge Diagnosis/Procedures: Left SFA and above-knee popliteal artery stent placement
Condition: Good
Diet: As tolerated and Diabetic, Carb Controlled
Activity: No strenuous activity
Driving Restrictions: No driving for 24 hours
Bathing Restrictions: OK to Shower
Others Tests: Ultrasound appointment for peripheral arterial disease reevaluation: 11/10/23 at 3pm here at [facility]
Activity Restrictions/Additional Instructions:
Wound Care Instructions
L leg: paint larger silva wound with Betadine daily, large silicone foam over both ulcers to protect, change as needed if drainage.
R lateral ankle: clean with saline, smear of honey gel, adaptic, gauze and silicone foam change daily and prn soilage. Can re use foam if dry
Follow up with vascular
Stand Alone Forms: DC Instr - Vascular OR
Referrals:
Ximena Briceño PA-C [Specified Professional Personl] - 11/11/23 9:30 am
Markus Segovia MD [Family Provider] - in less than 1 week
Santy Soto MD [Active] - in two weeks (Plastic surgery [id number] call for appointment)
Dylan Palomo MD [Active] - in one week
Prescriptions:
Continued
potassium chloride [Klor-Con M20] 20 MEQ tablet,ER particles/crystals
20 meq PO BID
metformin 1,000 MG tablet
1,000 mg PO BID
Hold Instructions: Resume on 10/02/21. hold for 48 hours
glipizide 5 MG tablet
10 mg PO BID
Patient Comments:
cinnamon bark [Cinnamon] 500 MG capsule
500 mg PO DAILY
furosemide [Lasix] 40 MG tablet
80 mg PO DAILY
cyanocobalamin (vitamin B-12) 1,000 MCG tablet
1,000 mcg PO DAILY
warfarin [Jantoven] 5 MG tablet
7.5 mg PO SUTH
Hold Instructions: Resume on 10/01/21. Resume dose warfrin on 10/01/2021
warfarin [Jantoven] 5 MG tablet
5 mg PO MOTUWEFRSA
turmeric root extract 500 MG capsule
900 mg PO DAILY
losartan 25 MG tablet
25 mg PO DAILY
cholecalciferol (vitamin D3) [Vitamin D3] 25 MCG capsule
25 mcg PO DAILY
chromium picolinate 1,000 MCG tablet
500 mcg PO DAILY
Jardiance 25 mg Tablet
25 mg PO DAILY
furosemide 40 mg Tablet
40 mg PO QPM
tamsulosin [Flomax] 0.4 mg Capsule
0.4 mg PO QPM
aspirin [Ecotrin Low Strength] 81 mg tablet,delayed release (DR/EC)
81 mg PO DAILY Qty: 30 5RF
fenugreek seed extract
610 mg PO DAILY
Discharge Orders:
Discharge Patient (As Directed); Ordered 09/25/23
Ordered By: Luis Brown
Discharge Date and Time
Discharge Date/Time: 09/25/23 16:07
Print Language: BRAZILIAN

Documented by User: Lj Pulido MD 09/25/23 17:35
Discharge Summary
Discharge Data
Date of Admission: 09/22/23
Date of Discharge: 09/25/23
Discharge Plan
-
Patient Disposition: Home (Routine Discharge)
Discharge Diagnosis/Procedures: Left SFA and above-knee popliteal artery stent placement
Condition: Good
Diet: As tolerated and Diabetic, Carb Controlled
Activity: No strenuous activity
Driving Restrictions: No driving for 24 hours
Bathing Restrictions: OK to Shower
Others Tests: Ultrasound appointment for peripheral arterial disease reevaluation: 11/10/23 at 3pm here at [facility]
Activity Restrictions/Additional Instructions:
Wound Care Instructions
L leg: paint larger silva wound with Betadine daily, large silicone foam over both ulcers to protect, change as needed if drainage.
R lateral ankle: clean with saline, smear of honey gel, adaptic, gauze and silicone foam change daily and prn soilage. Can re use foam if dry
Follow up with vascular
Stand Alone Forms: DC Instr - Vascular OR
Referrals:
Ximena Briceño PA-C [Specified Professional Personl] - 11/11/23 9:30 am
Markus Segovia MD [Family Provider] - in less than 1 week
Santy Soto MD [Active] - in two weeks (Plastic surgery [id number] call for appointment)
Dylan Palomo MD [Active] - in one week
Prescriptions:
Continued
potassium chloride [Klor-Con M20] 20 MEQ tablet,ER particles/crystals
20 meq PO BID
metformin 1,000 MG tablet
1,000 mg PO BID
Hold Instructions: Resume on 10/02/21. hold for 48 hours
glipizide 5 MG tablet
10 mg PO BID
Patient Comments:
cinnamon bark [Cinnamon] 500 MG capsule
500 mg PO DAILY
furosemide [Lasix] 40 MG tablet
80 mg PO DAILY
cyanocobalamin (vitamin B-12) 1,000 MCG tablet
1,000 mcg PO DAILY
warfarin [Jantoven] 5 MG tablet
7.5 mg PO SUTH
Hold Instructions: Resume on 10/01/21. Resume dose warfrin on 10/01/2021
warfarin [Jantoven] 5 MG tablet
5 mg PO MOTUWEFRSA
turmeric root extract 500 MG capsule
900 mg PO DAILY
losartan 25 MG tablet
25 mg PO DAILY
cholecalciferol (vitamin D3) [Vitamin D3] 25 MCG capsule
25 mcg PO DAILY
chromium picolinate 1,000 MCG tablet
500 mcg PO DAILY
Jardiance 25 mg Tablet
25 mg PO DAILY
furosemide 40 mg Tablet
40 mg PO QPM
tamsulosin [Flomax] 0.4 mg Capsule
0.4 mg PO QPM
aspirin [Ecotrin Low Strength] 81 mg tablet,delayed release (DR/EC)
81 mg PO DAILY Qty: 30 5RF
fenugreek seed extract
610 mg PO DAILY
Discharge Orders:
Discharge Patient (As Directed); Ordered 09/25/23
Ordered By: Luis Brown
Discharge Date and Time
Discharge Date/Time: 09/25/23 16:07
Print Language: BRAZILIAN
--- NOTE | 2023-09-25 14:25 | CM ---
Patient for d/c home.
IMM completed.
Spouse will transport.
Plan: home no needs.
[2023-09-25 15:15] VITALS: BP 108/46
== END 2023-09-25 16:07 | disposition home or self-care (01) | DRG 253 ==
LOC: 4 WEST ACU 19:17
PROVIDERS: Nurse Practitioner; Physician Assistant; Physician Assistant Medical; ADMITTING PHYSICIAN Hospitalist; CONSULT PHYSICIAN Surgery Plastic and Reconstructive Surgery; CONSULT PHYSICIAN Surgery Vascular Surgery; EMERGENCY PHYSICIAN Emergency Medicine; FAMILY PHYSICIAN Family Medicine
PROC: 047N34Z Dilation of Left Popliteal Artery with Drug-eluting Intraluminal Device, Percutaneous Approach (ICD-10-PCS; 2023-09-24)
PROC: 047L35Z Dilation of Left Femoral Artery with Two Drug-eluting Intraluminal Devices, Percutaneous Approach (ICD-10-PCS; 2023-09-24)
DX: E11.52 Type 2 diabetes mellitus with diabetic peripheral angiopathy with gangrene (principal); I42.1 Obstructive hypertrophic cardiomyopathy; I47.20 Ventricular tachycardia, unspecified; I70.262 Atherosclerosis of native arteries of extremities with gangrene, left leg; L03.116 Cellulitis of left lower limb; L97.829 Non-pressure chronic ulcer of other part of left lower leg with unspecified severity; E11.42 Type 2 diabetes mellitus with diabetic polyneuropathy; I10 Essential (primary) hypertension; E78.5 Hyperlipidemia, unspecified; Z95.810 Presence of automatic (implantable) cardiac defibrillator; Z79.01 Long term (current) use of anticoagulants; Z79.82 Long term (current) use of aspirin; Z79.84 Long term (current) use of oral hypoglycemic drugs; Z79.899 Other long term (current) drug therapy; Z88.0 Allergy status to penicillin; Z88.8 Allergy status to other drugs, medicaments and biological substances
CPT/HCPCS: 35656; 37226; 73590; 75625; 75710; 80048; 80053; 82962; 83036; 85025; 85027; 85610; 85652; 85730; 86140; 87070; 99285; 99406; C1725; C1769; C1874; C1887; C1894; Q9967

== ENCOUNTER → 2023-10-16 13:58 | Outpatient (REF) | payer MEDICARE, OTHER, SELFPAY ==
[2023-10-16 15:27] LABS: ALT (SGPT) 13 U/L (0-50); AST (SGOT) 20 U/L (17-59); Albumin 4.5 g/dl (3.5-5.0); Alkaline Phosphatase 105 U/L (38-126); Blood Urea Nitrogen 36 mg/dl (9-20); Calcium 9.6 mg/dl (8.4-10.2); Carbon Dioxide 26 mmol/L (22-30); Chloride 101 mmol/L (98-107); Glucose 93 mg/dl (70-99); Potassium 5.1 mmol/L (3.5-5.1); Sodium 136 mmol/L (135-145); Total Bilirubin 0.9 mg/dl (0.2-1.3); Total Protein 7.2 g/dl (6.3-8.2); eGFR 56.58
[2023-10-17 15:55] LABS: Glycohemoglobin (HgbA1c) 6.4 % (4.0-5.6)
== END ==
LOC: REG 13:58
PROVIDERS: ATTENDING PHYSICIAN Internal Medicine Endocrinology, Diabetes & Metabolism; FAMILY PHYSICIAN Family Medicine
DX: E11.65 Type 2 diabetes mellitus with hyperglycemia (principal)
CPT/HCPCS: 36415; 80053; 83036

== ENCOUNTER → 2023-10-29 15:56 | Outpatient (REF) | payer MEDICARE, OTHER, SELFPAY | LOC: RAD 15:56 | PROVIDERS: ATTENDING PHYSICIAN Podiatrist Foot & Ankle Surgery; FAMILY PHYSICIAN Family Medicine; REFERRING PHYSICIAN Surgery Vascular Surgery | DX: E11.52 Type 2 diabetes mellitus with diabetic peripheral angiopathy with gangrene (principal) | CPT/HCPCS: 73700 ==

== ENCOUNTER → 2023-11-10 15:00 | Outpatient (REF) | payer MEDICARE, OTHER, SELFPAY | LOC: RAD 15:00 | PROVIDERS: ATTENDING PHYSICIAN Surgery Vascular Surgery; FAMILY PHYSICIAN Family Medicine | DX: I73.9 Peripheral vascular disease, unspecified (principal) | CPT/HCPCS: 93922; 93925 ==

== ENCOUNTER 2024-01-05 10:31 | Day surgery (SDC) | payer MEDICARE, OTHER, SELFPAY ==
[2024-01-05] VITALS (27 sets, daily range): BP systolic 96–135; BP diastolic 48–114
[2024-01-05 11:16] LABS: Hematocrit 41.2 % (39.0-52.0); Hemoglobin 14.1 g/dL (13.0-18.0); Mean Corp Hgb Conc. 34.2 g/dL (33.0-37.0); Mean Corpuscular Hgb 31.5 pg (27.0-31.0); Mean Corpuscular Volume 92.2 fL (80.0-94.0); Mean Platelet Volume 12.2 fL (7.4-10.4); Platelet Count 188 10^3/uL (130-400); Red Blood Cell Count 4.47 10^6/uL (4.70-6.10); Red Cell Dist. Width 13.9 % (11.5-14.5); White Blood Cell Count 7.8 10^3/uL (4.8-10.8)
[2024-01-05 11:19] LABS: INR 1.18; PT 14.8 Sec (11.4-14.6)
[2024-01-05 11:20] LABS: APTT 28.2 Sec (23.4-35.0)
[2024-01-05 11:22] LABS: Blood Urea Nitrogen 37 mg/dl (9-20); Calcium 10.1 mg/dl (8.4-10.2); Carbon Dioxide 29 mmol/L (22-30); Chloride 92 mmol/L (98-107); Estimated Creatinine Clearance 52 ml/min; Glucose 391 mg/dl (70-99); Potassium 4.6 mmol/L (3.5-5.1); Sodium 137 mmol/L (135-145); eGFR 56.58
[2024-01-05] MEDS: NOVOLOG vial 4 UNITS SC ×3 (12:47→18:29)
[2024-01-05 14:27] LABS: Glucose - Point of Care 307 mg/dl (70-99)
--- NOTE | 2024-01-05 16:49 | OR.RPT ---
Operative Report
Operative Report
Date of Operation: 01/05/2024
Pre Op Diagnosis:
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
2.) active smoking
3.) poorly controlled diabetes
Post Op Diagnosis:
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
2.) active smoking
3.) poorly controlled diabetes
Procedure:
1.) Covered stent placement to right tibial peroneal trunk (5 mm x 2.5 cm Viabahn stent graft)
2.) Diagnostic aortobiiliac arteriogram
3.) Diagnostic BILATERAL lower extremity arteriograms
4.) Ultrasound-guided percutaneous access to the left common femoral artery
Surgeon: Sampson Marrero III, MD
Physician/Ophthalmologist: Ann Jorgensen MD PGY-8
Anesthesia: Sedation with local
Fluoroscopy:
39.6 min
145 mGy
22.54 Gy.cm2
Complications: None
Estimated Blood Loss: Minimal
History and Indications for Procedure: 78-year-old male with known peripheral arterial occlusive disease and chronic limb threatening ischemia of the bilateral lower extremity manifested by nonhealing wounds.
Procedure in Detail: Rogelio Pelletier was correctly identified and placed supine on the operating table. After adequate induction of anesthesia the bilateral groins were prepped and draped in the usual sterile fashion. A timeout was performed with
the nursing and anesthesia staff confirming the patient's identity as well as the nature and laterality of the procedure.
The left common femoral artery was identified under ultrasound guidance. The artery was patent. The superior and inferior aspects of the femoral head were identified with radiographic guidance and marked at the skin level. The proposed puncture site
was infiltrated with local anesthesia. We saved a copy of the ultrasound image to the medical record. Under ultrasound guidance we accessed the left common femoral artery with a micropuncture needle and upsized to a 5 Fr sheath over a Bentson wire.
The wire and a [employer] hook flush catheter were advanced into the distal abdominal aorta and a diagnostic aorto-biiliac arteriogram was performed:
AORTO-ILIAC ARTERIOGRAM:
Aorta: Patent with no significant stenosis identified
Right common iliac artery: Patent with no significant stenosis identified
Right external iliac artery: Patent stent. No significant stenosis identified
Left common iliac artery: Patent with no significant stenosis identified
Left external iliac artery: Patent stent. No significant stenosis identified
Under roadmap guidance using a Glidewire and the [employer] hook catheter we selected the right common iliac artery and then the external iliac artery. A catheter was tracked up and over the aortic bifurcation and placed in the distal external iliac
artery. A diagnostic right lower extremity arteriogram was then performed which demonstrated the following:
RIGHT LOWER EXTREMITY:
Common femoral artery: Patent with no significant stenosis identified
Profunda femoral artery: Patent with no significant stenosis identified
Superficial femoral artery: Patent stents. No significant stenosis identified. Areas of mild in-stent restenosis identified.
Popliteal artery: Patent stents. No significant stenosis identified
Anterior tibial artery: Occluded
Tibioperoneal trunk: Patent with high-grade stenosis
Peroneal artery: Patent but diminutive vessel throughout.
Posterior tibial artery: Occluded with sluggish distal reconstitution identified
Severe small vessel disease identified in the foot
ENDOVASCULAR INTERVENTION: Systemic heparin was administered. The right superficial femoral artery was selected with a Glidewire and hickman's the catheter. Exchanged out for a 5 Fr 70 cm sheath over a Storq wire. Selected the below-knee
popliteal artery and tibioperoneal trunk under roadmap guidance with Quickcross catheter and glidewire. Magnification arteriogram was performed and oblique views. Attempted to engage the stump of posterior tibial artery but could not cross with a
Glidewire or hydrophilic tip 0.014 wire. Abandoned additional attempts. Subsequent arteriogram demonstrated focal area of extravasation in the tibioperoneal trunk. A 4 mm angioplasty balloon was placed across the tibioperoneal trunk and inflated
to nominal pressure. This was held in place for 4-minute inflation. Subsequent arteriogram demonstrated improvement but extravasation was still evident. I therefore exchanged out for a 6 Belarusian 45 cm sheath over a Storq wire. I then exchanged
out for a V18 wire. Under roadmap magnification view I then placed a 5 mm x 2.5 cm Viabahn stent graft across the area of extravasation in the tibioperoneal trunk. This was deployed in the desired location. The stent was then profiled with a 4 mm
angioplasty balloon. Subsequent arteriogram demonstrated no active extravasation and a patent tibioperoneal trunk. Further attempts at endovascular tibial intervention were abandoned at this point.
The sheath tip was pulled back into the left external iliac artery. A runoff arteriogram of the left lower extremity was performed which demonstrated the following:
LEFT LOWER EXTREMITY:
Common femoral artery: Patent with no significant stenosis identified
Profunda femoral artery: Patent. Focal high-grade stenosis in the proximal profunda femoral artery identified.
Superficial femoral artery: Patent stents. No significant in-stent restenosis identified.
Popliteal artery: Patent stents. No significant in-stent restenosis identified
Anterior tibial artery: Occluded
Tibioperoneal trunk: High-grade stenosis extending into the peroneal artery
Peroneal artery: Patent single-vessel tibial artery runoff
Posterior tibial artery: Occluded
Significant small vessel disease identified in the foot
The sheath was secured in place with the plan to pull it in the recovery room. Protamine was administered. The patient tolerated the procedure well and was taken to the recovery area in stable condition.
Attestation: I was present and responsible for the entire procedure.
Signed:
Sampson Marrero III, MD
[facility]
[phone] ([facility])
[2024-01-05] MEDS: DILAUDID 0.25 MG IV (17:02)
[2024-01-05 17:05] LABS: Glucose - Point of Care 249 mg/dl (70-99)
--- NOTE | 2024-01-05 18:01 | PTCARENOTE ---
Patient admitted from PACU post angiogram with revascularization of the right leg with angioplasty and stent placement .Access was obtained through the left groin.The patient's vital signs are stable.The groin site is intact and soft with no sign of
hematoma.Pulses checked on admission with doppler were intact.The patient is in his bed with the call saldaña in reach.
--- NOTE | 2024-01-05 18:08 | TRANSFER ---
Transferred to [address] [place] [address] on stretcher, transferred with 3 assist into bed using sliding board. left groin check and Doppler pulse check on arrival to [address] [place] [address]. patient awake and alert, family waiting , called. Christoph Padilla RN BSN.
[2024-01-05 18:10] LABS: Glucose - Point of Care 238 mg/dl (70-99)
[2024-01-05] MEDS: NSS 1000 IV (18:26)
[2024-01-05] MEDS: NOVOLOG FLEXPEN-LOW RESISTANCE 4 UNITS SC (18:26)
[2024-01-05] MEDS: FLOMAX 0.4 MG PO (18:30)
[2024-01-05] MEDS: COUMADIN 5 MG PO (18:30)
[2024-01-05] MEDS: KCL 20 MEQ PO (20:28)
[2024-01-05 21:16] LABS: Glucose - Point of Care 360 mg/dl (70-99)
[2024-01-05] MEDS: NOVOLOG FLEXPEN 5 UNITS SC (22:36)
[2024-01-05] MEDS: HEPARIN 5000 UNITS SC (22:36)
[2024-01-06 02:04] LABS: Glucose - Point of Care 235 mg/dl (70-99)
[2024-01-06 03:13] VITALS: BP 131/66
[2024-01-06] MEDS: TUMS CHEWABLE TABLET 200 MG PO (03:34)
[2024-01-06 05:51] VITALS: BMI 23.8
[2024-01-06 07:15] VITALS: BP 112/55
[2024-01-06 07:15] LABS: Glucose - Point of Care 183 mg/dl (70-99)
[2024-01-06] MEDS: TOPROL XL 50 MG PO (07:53)
[2024-01-06] MEDS: ASPIR LOW (ENTERIC COATED) 81 MG PO (07:53)
[2024-01-06] MEDS: COZAAR 25 MG PO (07:54)
[2024-01-06] MEDS: KCL 20 MEQ PO (07:54)
[2024-01-06] MEDS: HEPARIN 5000 UNITS SC (07:54)
[2024-01-06] MEDS: NOVOLOG FLEXPEN-LOW RESISTANCE 1 UNITS SC (07:55)
--- NOTE | 2024-01-06 08:00 | W.PN.VS ---
Today's Communication / Plan
-
See below.
Assessment/Plan
-
Assessment: 78-year-old male POD #1 bilateral lower EXTR and arteriogram
Plan:
Discharge to home
Follow-up in office as scheduled
Subjective Data
-
Date of Service: January 06, 2024
Patient seen and examined at bedside, offers no complaints. Denies nausea, vomiting, fever, and chills. Reports eagerness for discharge to home.
Objective Data
-
Vital Signs
Temp Pulse Resp BP Pulse Ox
97.7 F 72 16 112/55 98
01/06/24 07:15 01/06/24 07:15 01/06/24 07:15 01/06/24 07:54 01/06/24 07:15
Intake and Output
01/05/24 01/06/24 01/07/24
06:59 06:59 06:59
Intake Total 1198 / 1198
Output Total 1080 / 1080
Balance 118 / 118
Intake:
Oral fluids 748 / 748
IV fluids (Total) 450 / 450
Nss 1,000 ml @ 80 mls/hr IV . 80 / 80
[id number] JUANA Rx#:[id number]
ns 50 / 50
Output:
Urine, Voided 1080 / 1080
Lab Results
01/05/24 10:46
01/05/24 10:46
Calcium 10.1 mg/dl (8.4-10.2) 01/05/24 10:46
Physical Exam
-
AAOx3, no apparent distress
No tachycardia
No dyspnea on air
ABD nontender, nondistended, soft
Left groin puncture site CDI, no evidence of hematoma or edema, all surrounding compartments soft
--- NOTE | 2024-01-06 08:36 | W.DS.TRANS ---
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
-
Discharge Instructions:
Discharge Diagnosis/Procedures Diagnostic bilateral lower extremity arteriogram
, covered stent
Diet Diabetic, Carb Controlled
Activity No strenuous activity
Driving Restrictions No driving for 24 hours
Bathing Restrictions OK to Shower
Instructions:
Stand-Alone Forms: DC Instr - Vascular OR
Changes to Home Medications: Yes
Discharge Medications:
DC Medications w/original date entered in [facility]
metformin 1,000 mg tablet 1,000 mg PO BID Diabetes 01/27/17
potassium chloride 20 mEq tablet,extended release(part/cryst) (Klor-Con M) 20 meq PO BID electrolyte repletion 01/27/17
furosemide 40 mg tablet (Lasix) 80 mg PO DAILY Fluid retention/Swelling 12/10/17
cyanocobalamin (vitamin B-12) 1,000 mcg tablet 1,000 mcg PO DAILY Supplement 05/02/18
warfarin 5 mg tablet (Jantoven) 5 mg PO MOTUWEFRSA Blood clot prevention/tx 05/02/18
warfarin 5 mg tablet (Jantoven) 7.5 mg PO SUTH Blood clot prevention/tx 05/02/18
losartan 25 mg tablet 25 mg PO DAILY Blood Pressure 06/01/19
cholecalciferol (vitamin D3) 25 mcg (1,000 unit) capsule (Vitamin D3) 25 mcg PO BID Supplement 06/08/20
chromium picolinate 1,000 mcg tablet 500 mcg PO DAILY Supplement 06/08/20
empagliflozin 25 mg tablet (Jardiance) 25 mg PO DAILY Diabetes 09/25/22
furosemide 40 mg tablet 40 mg PO QPM Fluid Retention/Swelling 09/25/22
tamsulosin 0.4 mg capsule (Flomax) 0.4 mg PO QPM Urinary Issue 09/25/22
aspirin 81 mg tablet,delayed release (Ecotrin Low Strength) 81 mg PO DAILY #30 tabs 09/30/22
fenugreek seed extract 610 mg PO DAILY Supplement 07/16/23
cinnamon bark extract 1 cap PO DAILY 01/01/24
glipizide 10 mg tablet 10 mg PO BID 01/01/24
metoprolol succinate 50 mg tablet,extended release 24 hr 50 mg PO DAILY 01/01/24
turmeric 1 tab PO DAILY 01/01/24
Home Medication Changes
Held for 48 hours:
metformin 1,000 mg tablet 1,000 mg PO BID Diabetes 01/27/17
empagliflozin 25 mg tablet (Jardiance) 25 mg PO DAILY Diabetes 09/25/22
glipizide 10 mg tablet 10 mg PO BID 01/01/24
Pending Results: No
--- NOTE | 2024-01-06 10:25 | CM ---
s/p arteriogram
Pt reports he lives with his in a 2 story home; 2 steps to enter, 13 steps to 2nd fl
Retired, ambulates with single point cane, independent with ADL's, does cooking, cleaning, shopping, drives
DME - [employer]
SNF/Rehab - [facility] in past
HH - [facility] in past
Has ride at discharge
PCP - Markus Segovia
Pharm - [facility]
Plan - anticipate home no needs when medically stable
[2024-01-06 10:47] VITALS: BP 114/56
== END 2024-01-06 11:33 | disposition home or self-care (01) ==
LOC: CATH 10:31
PROVIDERS: ATTENDING PHYSICIAN Surgery Vascular Surgery; FAMILY PHYSICIAN Family Medicine; OTHER PHYSICIAN Internal Medicine Cardiovascular Disease
DX: I70.233 Atherosclerosis of native arteries of right leg with ulceration of ankle (principal); L97.319 Non-pressure chronic ulcer of right ankle with unspecified severity; I70.248 Atherosclerosis of native arteries of left leg with ulceration of other part of lower leg; L97.829 Non-pressure chronic ulcer of other part of left lower leg with unspecified severity; F17.210 Nicotine dependence, cigarettes, uncomplicated; Z79.82 Long term (current) use of aspirin; Z79.01 Long term (current) use of anticoagulants; Z79.84 Long term (current) use of oral hypoglycemic drugs; Z79.899 Other long term (current) drug therapy; E11.9 Type 2 diabetes mellitus without complications; I42.1 Obstructive hypertrophic cardiomyopathy; I48.21 Permanent atrial fibrillation; I50.42 Chronic combined systolic (congestive) and diastolic (congestive) heart failure; I11.0 Hypertensive heart disease with heart failure; Z88.0 Allergy status to penicillin; Z88.8 Allergy status to other drugs, medicaments and biological substances; Z91.041 Radiographic dye allergy status
CPT/HCPCS: 37230; 75625; 75716; 76937; 80048; 82962; 85027; 85610; 85730; 87070; C1769; C1874; C1887; C1894; Q9967

== ENCOUNTER → 2024-01-28 16:16 | Outpatient (REF) | payer MEDICARE, OTHER, SELFPAY ==
[2024-01-28 17:44] LABS: % Basophils 0.6 % (0-2); % Eosinophils 2.6 % (0-6); % Immature Granulocytes 0.5 % (0-0.5); % Lymphocytes 24.2 % (20.5-51.1); % Monocytes 6.9 % (1.7-9.3); % Neutrophils 65.2 % (42.2-75.2); Absolute Basophils 0.1 10^3/uL (0-0.2); Absolute Eosinophils 0.2 10^3/uL (0-0.7); Absolute Lymphocytes 1.9 10^3/uL (1.2-3.4); Absolute Monocytes 0.6 10^3/uL (0.1-0.6); Absolute Neutrophils 5.2 10^3/uL (1.4-6.5); Hematocrit 41.7 % (39.0-52.0); Hemoglobin 14.4 g/dL (13.0-18.0); Mean Corp Hgb Conc. 34.5 g/dL (33.0-37.0); Mean Corpuscular Hgb 32.6 pg (27.0-31.0); Mean Corpuscular Volume 94.3 fL (80.0-94.0); Mean Platelet Volume 11.6 fL (7.4-10.4); Nucleated Red Blood Cells % 0 % (-); Platelet Count 201 10^3/uL (130-400); Red Blood Cell Count 4.42 10^6/uL (4.70-6.10); Red Cell Dist. Width 14.7 % (11.5-14.5)
[2024-01-28 17:55] LABS: PT 23.1 Sec (11.4-14.6)
[2024-01-28 17:58] LABS: C-Reactive Protein < 5.00 mg/L (0.0-10.00)
[2024-01-28 18:00] LABS: Blood Urea Nitrogen 38 mg/dl (9-20); Calcium 9.8 mg/dl (8.4-10.2); Carbon Dioxide 26 mmol/L (22-30); Chloride 97 mmol/L (98-107); Glucose 137 mg/dl (70-99); Potassium 4.4 mmol/L (3.5-5.1); Sodium 138 mmol/L (135-145); eGFR > 60.00
== END ==
LOC: RCS 16:16
PROVIDERS: ATTENDING PHYSICIAN Podiatrist Foot & Ankle Surgery; FAMILY PHYSICIAN Family Medicine
DX: Z01.810 Encounter for preprocedural cardiovascular examination (principal); Z01.811 Encounter for preprocedural respiratory examination; Z01.812 Encounter for preprocedural laboratory examination; L97.214 Non-pressure chronic ulcer of right calf with necrosis of bone; I96 Gangrene, not elsewhere classified
CPT/HCPCS: 36415; 71046; 80048; 85025; 85610; 86140; 93005

== ENCOUNTER 2024-02-03 06:11 | Day surgery (SDC) | payer MEDICARE, OTHER, SELFPAY ==
--- NOTE | 2024-01-29 10:15 | PTCARENOTE ---
Marcy in Dr Ortiz's office made aware of INR 2.0 and CXR result.
--- NOTE | 2024-01-29 15:07 | PTCARENOTE ---
Patients 01/27 CXR abnormal reviewed bu Dr. Serna- no additional interventions required
[2024-02-03] VITALS (7 sets, daily range): BP systolic 100–115; BP diastolic 49–78; BMI 24.1
[2024-02-03 10:29] LABS: Glucose - Point of Care 258 mg/dl (70-99)
[2024-02-03 11:11] LABS: INR 0.97; PT 13.4 Sec (11.4-14.6)
[2024-02-03 12:57] LABS: Glucose - Point of Care 171 mg/dl (70-99)
== END 2024-02-03 14:50 | disposition home or self-care (01) ==
LOC: SDS 06:11
PROVIDERS: ATTENDING PHYSICIAN Podiatrist Foot & Ankle Surgery
DX: L97.313 Non-pressure chronic ulcer of right ankle with necrosis of muscle (principal); L97.224 Non-pressure chronic ulcer of left calf with necrosis of bone; E11.621 Type 2 diabetes mellitus with foot ulcer; G62.9 Polyneuropathy, unspecified
CPT/HCPCS: 11044; 11043; 82962; 85610; Q4104; Q4118

== ENCOUNTER → 2024-04-25 13:24 | Outpatient (REF) | payer MEDICARE, OTHER, SELFPAY ==
[2024-04-25 15:35] LABS: Microalbumin, Random Urine <0.6 mg/dl (0.6-1.7)
[2024-04-25 15:36] LABS: ALT (SGPT) 17 U/L (0-50); AST (SGOT) 23 U/L (17-59); Albumin 4.7 g/dl (3.5-5.0); Alkaline Phosphatase 97 U/L (38-126); Blood Urea Nitrogen 34 mg/dl (9-20); Calcium 9.8 mg/dl (8.4-10.2); Carbon Dioxide 28 mmol/L (22-30); Chloride 97 mmol/L (98-107); Glucose 81 mg/dl (70-99); Potassium 5.2 mmol/L (3.5-5.1); Sodium 138 mmol/L (135-145); Total Bilirubin 0.9 mg/dl (0.2-1.3); Total Protein 7.4 g/dl (6.3-8.2); eGFR 51.77
[2024-04-26 08:43] LABS: Glycohemoglobin (HgbA1c) 7.4 % (4.0-5.6)
== END ==
LOC: REG 13:24
PROVIDERS: ATTENDING PHYSICIAN Internal Medicine Endocrinology, Diabetes & Metabolism; FAMILY PHYSICIAN Family Medicine
DX: E11.65 Type 2 diabetes mellitus with hyperglycemia (principal)
CPT/HCPCS: 36415; 80053; 82043; 82570; 83036

== ENCOUNTER → 2024-05-05 15:51 | Outpatient (REF) | payer MEDICARE, OTHER, SELFPAY | LOC: RAD 15:51 | PROVIDERS: ATTENDING PHYSICIAN Podiatrist Foot & Ankle Surgery; FAMILY PHYSICIAN Family Medicine | DX: L97.213 Non-pressure chronic ulcer of right calf with necrosis of muscle (principal); L03.115 Cellulitis of right lower limb | CPT/HCPCS: 73610 ==

== ENCOUNTER 2024-05-09 17:21 | Inpatient (IN) | payer MEDICARE, OTHER, SELFPAY ==
[2024-05-09 14:56] VITALS: BP 114/66
[2024-05-09 15:27] LABS: % Basophils 0.2 % (0-2); % Eosinophils 1.5 % (0-6); % Immature Granulocytes 0.7 % (0-0.5); % Lymphocytes 13.9 % (20.5-51.1); % Monocytes 6.5 % (1.7-9.3); % Neutrophils 77.2 % (42.2-75.2); Absolute Eosinophils 0.2 10^3/uL (0-0.7); Absolute Immature Granulocytes 0.1 10^3/uL (0-0.05); Absolute Lymphocytes 1.4 10^3/uL (1.2-3.4); Absolute Monocytes 0.7 10^3/uL (0.1-0.6); Absolute Neutrophils 7.9 10^3/uL (1.4-6.5); Hematocrit 41.5 % (39.0-52.0); Hemoglobin 13.3 g/dL (13.0-18.0); Mean Corpuscular Hgb 30.6 pg (27.0-31.0); Mean Corpuscular Volume 95.6 fL (80.0-94.0); Mean Platelet Volume 10.8 fL (7.4-10.4); Nucleated Red Blood Cells % 0 % (-); Platelet Count 207 10^3/uL (130-400); Red Blood Cell Count 4.34 10^6/uL (4.70-6.10); Red Cell Dist. Width 14.4 % (11.5-14.5); White Blood Cell Count 10.3 10^3/uL (4.8-10.8)
[2024-05-09 15:43] LABS: Lactic Acid 2.7 mmol/L (0.7-2.0)
[2024-05-09 15:47] LABS: ALT (SGPT) 16 U/L (0-50); AST (SGOT) 21 U/L (17-59); Alkaline Phosphatase 112 U/L (38-126); Blood Urea Nitrogen 27 mg/dl (9-20); Calcium 9.4 mg/dl (8.4-10.2); Carbon Dioxide 27 mmol/L (22-30); Chloride 97 mmol/L (98-107); Glucose 170 mg/dl (70-99); Potassium 5.3 mmol/L (3.5-5.1); Sodium 133 mmol/L (135-145); Total Bilirubin 0.8 mg/dl (0.2-1.3); Total Protein 6.9 g/dl (6.3-8.2); eGFR > 60.00
--- NOTE | 2024-05-09 16:45 | ED.GENMED ---
History of Present Illness
General
Chief Complaint: Skin Problem
Source: patient, records, spouse and family
Exam Limitations: none
Time Seen by Provider: 05/09/24 16:09
Nursing documentation reviewed up to this point in time: agreed with
History of Present Illness
History of Present Illness:
78-year-old male with history as documented presents to the ER referred by etl programmer for right leg pain, redness and concern for acute cellulitis. Patient has significant peripheral vascular disease and follows with Dr. Marrero for vascular surgery.
He has chronic nonhealing wounds on his right ankle as well as his left anterior silva. He has been following with podiatry for foot and ankle care (Dr. Ortiz). He says that over the past week he has had increased redness, pain, swelling in the
right lower leg around the area of his nonhealing ankle wound. Seen by podiatry today and referred to the ER for admission and vascular consultation with suspected acute cellulitis. He denies fevers or chills. Denies any other complaints.
Past History
Past History
ED Past Medical History: Arrthythmia (Atrial fibrillation), CHF (Hypertrophic obstructive Cardiomyopathy), HTN, Hypercholesterolemia, Valvular disease and Other (Hypertrophic cardiomyopathy, diabetic neuropathy, diabetic foot wounds, cellulitis,
osteomyelitis, MRSA)
ED Past Surgical History: Cardiac (AICD, aortic valve replacement), Cholecystectomy, Orthopedic (Right foot metatarsal resection November 2017) and Tonsilectomy
Social History
Tobacco: Smoker
Alcohol: None
Drug: None
Personal:
Living: with family
Employment: Retired
Family History
Family History: Other (Father with rheumatic fever)
Review of Systems
Review of Systems
All Other Systems: ROS reviewed and negative except as documented in HPI and ROS
Constitutional: Denies fever or chills
Musculoskeletal: Reports other (Pain, redness, swelling right lower leg)
Phy Exam
Physical Exam
Physical Exam:
General: Awake, alert, oriented x3; no acute distress
Head: Normocephalic, atraumatic
Eyes: Conjunctiva normal
Throat: Airway intact, handling secretions
Neck: Trachea midline
Lungs: Breathing comfortably no distress
Heart: Regular rate
Skin: Patient has large wound right lateral ankle with no purulence noted on exam but foul odor; skin of the right lower leg surrounding wound and proximal and distal to the wound is erythematous, warm, indurated and tender to the touch; he has a
large wound in the left anterior silva no purulence or signs of acute infection
Extremities: Skin findings as below; distal extremities are warm and well-perfused
Scores
Heart Failure Risk
Heart Failure Risk Score: Not Applicable
Heart Score for Chest Pain Patients
STEMI patient?: Not applicable
Withdrawal Assessment of Alcohol
Withdrawal Assessment Completed?: Not applicable
Course
Orders/Labs/Results
Orders:
Orders
05/09/24 15:13
Complete Blood Count/With Diff Urgent
Comprehensive Metabolic Panel Urgent
Lactate Level [Lactic Acid] Urgent
Blood Culture NOW
WENDY Source: Blood/Venous
Specimen Description:
05/09/24 16:43
Cefepime HCl [Maxipime] 1,000 mg IV NOW STA
Vancomycin [Vancocin] 2,000 mg 0.9% Sodium Chloride 500 ml [Nss] 500 ml IV NOW
05/09/24 16:44
PODIATRY CONSULT Urgent
Consulting Provider: Shira Ortiz
Was physician already notified: Yes
Vascular Surgery Consult Urgent
Consulting Provider: Dylan Palomo
Was physician already notified: Yes
Abnormal Lab Results
05/09/24
15:13
RBC 4.34 L 10^6/uL
(4.70-6.10)
MCV 95.6 H fL
(80.0-94.0)
MCHC 32.0 L g/dL
(33.0-37.0)
MPV 10.8 H fL
(7.4-10.4)
Abs Immat Gran (auto) 0.1 H 10^3/uL
(0-0.05)
Absolute Neuts (auto) 7.9 H 10^3/uL
(1.4-6.5)
Absolute Monos (auto) 0.7 H 10^3/uL
(0.1-0.6)
Immature Gran % 0.7 H %
(0-0.5)
Neutrophils % 77.2 H %
(42.2-75.2)
Lymphocytes % 13.9 L %
(20.5-51.1)
Sodium 133 L mmol/L
(135-145)
Potassium 5.3 H mmol/L
(3.5-5.1)
Chloride 97 L mmol/L
(98-107)
BUN 27 H mg/dl
(9-20)
Glucose 170 H mg/dl
(70-99)
Lactic Acid 2.7 H mmol/L
(0.7-2.0)
05/09/24 15:13
05/09/24 15:13
Vital Signs
Initial and Last Documented VS:
Initial Vital Signs
Temp Pulse Resp BP Pulse Ox
37.0 C 86 16 114/66 99
05/09/24 14:56 05/09/24 14:56 05/09/24 14:56 05/09/24 14:56 05/09/24 14:56
Last Documented Vital Signs
Temp Pulse Resp BP Pulse Ox
37.0 C 86 16 114/66 99
05/09/24 14:56 05/09/24 14:56 05/09/24 14:56 05/09/24 14:56 05/09/24 14:56
MDM/Problems Addressed
Differential Diagnosis Includes:
Cellulitis, claudication/arterial insufficiency, DVT considered very unlikely with patient on Coumadin
MDM/Problems Addressed:
78-year-old male presents for evaluation of redness, pain, swelling right lower leg near an area of chronic nonhealing wound. Referred by podiatry for vascular consultation and IV antibiotics. Vitals and exam as above. Labs sent off in triage
showed mild lactic acidosis with lactate 2.7; blood cultures were sent off. Providing fluids, broad-spectrum antibiotics. Discussed with podiatry, vascular surgery, hospitalist.
Chronic conditions affecting care:
Peripheral vascular disease
*Pulse Oximetry
Patient hypoxic: no
*Critical Care Note
Total Time (30-74mins, 75-104mins- exclusive of procedures): Not Applicable
Data Reviewed
Review of Other/Old Records Reveals: Labs and Records
Source: patient, spouse and family
Patient Management
Discussion with other providers: Hospitalist (Discussed with hospitalist) and Huller Operator (Discussed with vascular surgery, discussed with podiatry)
Escalation/DeEscalation of care consider admission/obs:
Admission indicated
ED Attending Note
-
Portions of this chart may have been created with voice recognition software.� Occasional wrong word or��sound alike� substitutions may have occurred due to the inherent limitations of voice recognition software.
Discharge Plan
Departure
Patient Disposition: Admit
Date of Disposition: 05/09/24
Time of Disposition: 16:44
Admit to doctor: Melissa
Presentation/result/management discussed w/ accepting MD/DO: Hospitalist
Discharge Problem:
Cellulitis
Prescriptions:
No Action
potassium chloride [Klor-Con M20] 20 MEQ tablet,ER particles/crystals
20 meq PO BID
metformin 1,000 MG tablet
1,000 mg PO BID
furosemide [Lasix] 40 MG tablet
80 mg PO DAILY
cyanocobalamin (vitamin B-12) 1,000 MCG tablet
1,000 mcg PO DAILY
warfarin [Jantoven] 5 MG tablet
7.5 mg PO SUTH
warfarin [Jantoven] 5 MG tablet
5 mg PO MOTUWEFRSA
losartan 25 MG tablet
12.5 mg PO DAILY
cholecalciferol (vitamin D3) [Vitamin D3] 25 MCG capsule
25 mcg PO BID
chromium picolinate 1,000 MCG tablet
500 mcg PO DAILY
Jardiance 25 mg Tablet
25 mg PO DAILY
furosemide 40 mg Tablet
40 mg PO QPM
tamsulosin [Flomax] 0.4 mg Capsule
0.4 mg PO QPM
aspirin [Ecotrin Low Strength] 81 mg tablet,delayed release (DR/EC)
81 mg PO DAILY Qty: 30 5RF
fenugreek seed extract
610 mg PO DAILY
metoprolol succinate 50 mg Tablet Extended Release 24 Hr
50 mg PO DAILY
glipizide 10 mg Tablet
10 mg PO BID
cinnamon bark extract 1,200 mg capsule
1 cap PO DAILY
turmeric 900 mg tablet
1 tab PO DAILY
Discharge Date and Time
Print Language: MALTESE
--- NOTE | 2024-05-09 16:47 | HPS.HSE ---
Family Physician
-
Family Physician:
Chief Complaint
-
Sent by podiatry for chronic wound to right ankle and left lower silva
History of Present Illness
78-year-old male sent by Dr. Reg Suazo podiatry for IV antibiotics
Medical History
Past Medical History
Past Medical History: Reports Other
Additional Past Medical History:
Peripheral Vascular Disease s/p Multiple RLE Stents and LLE Intravascular Lithotripsy
Diabetes Mellitus, Type II
Diabetic Neuropathy
Hypertrophic Obstructive Cardiomyopathy
Chronic CHF
Paroxysmal Atrial Fibrillation status post ablation 2011, cardioversion x 5
Ventricular Tachycardia s/p ICD, had a replacement 2011
Pacemaker
Aortic stenosis AVR bovine with maze procedure 11/03/2011
CAD/MS
Essential Hypertension
Hyperlipidemia
BPH
Renal calculi
GERD
Hiatal hernia
Diverticulosis/diverticulitis
Active smoker�cigar
Past Surgical History: Reports Other
Additional Past Surgical History:
Bioprosthetic Aortic Valve Replacement with maze procedure 11/03/2011
Right Metatarsal Bone Resection
Right 5th Toe Amputation
Left great toe Amputation
Cholecystectomy
A-fib status post ablation 2011
Cardioversion x 5 for A-fib
AICD with battery replacement April 2011
Pacemaker
Bilateral lower extremity arteriograms December 2023
Colonic polyp removal 2019 and [facility]
Tonsillectomy
Cholecystectomy
Inguinal hernia repair left and right
Social History
Tobacco: Other (Former Cigarette Smoker, Quit at age 32; Currently smokes one cigar per day)
Alcohol: None
Personal:
Living: With Family
Family History
Family History: Not pertinent
Allergies / Home Medications
Allergies reflects when Allergies were last updated in [employer].
Home Medications with original date entered in [employer]
Allergy/Medication List:
Allergies
Allergy/AdvReac Type Severity Reaction Status Date / Time
iodine [Iodine] Allergy Severe nausea/vomi Verified 05/09/24 14:58
ting
lisinopril Allergy Severe 'light Verified 05/09/24 14:58
sweats,
achiness,
fatigue'
piperacillin Allergy Severe Rash Verified 05/09/24 14:58
clopidogrel [From Plavix] Allergy Intermediate ? Verified 05/09/24 14:58
nausea,tiredness
Iodinated Contrast Media Allergy Intermediate nausea, Verified 05/09/24 14:58
vomiting
pravastatin [Pravastatin] Allergy Intermediate nausea,tire Verified 05/09/24 14:58
dness
simvastatin [Simvastatin] Allergy Intermediate nausea/tire Verified 05/09/24 14:58
dness
tazobactam Allergy Intermediate Rash Verified 05/09/24 14:58
Home Medications
metformin 1,000 mg tablet 1,000 mg PO BID Diabetes 01/27/17
potassium chloride 20 mEq tablet,extended release(part/cryst) (Klor-Con M) 20 meq PO BID electrolyte repletion 01/27/17
furosemide 40 mg tablet (Lasix) 80 mg PO DAILY Fluid retention/Swelling 12/10/17
cyanocobalamin (vitamin B-12) 1,000 mcg tablet 1,000 mcg PO DAILY Supplement 05/02/18
warfarin 5 mg tablet (Jantoven) 5 mg PO MOTUWEFRSA Blood clot prevention/tx 05/02/18
warfarin 5 mg tablet (Jantoven) 7.5 mg PO SUTH Blood clot prevention/tx 05/02/18
losartan 25 mg tablet 25 mg PO DAILY Blood Pressure 06/01/19
cholecalciferol (vitamin D3) 25 mcg (1,000 unit) capsule (Vitamin D3) 25 mcg PO DAILY Supplement 06/08/20
chromium picolinate 1,000 mcg tablet 500 mcg PO DAILY Supplement 06/08/20
empagliflozin 25 mg tablet (Jardiance) 25 mg PO DAILY Diabetes 09/25/22
furosemide 40 mg tablet 40 mg PO QPM Fluid Retention/Swelling 09/25/22
tamsulosin 0.4 mg capsule (Flomax) 0.4 mg PO QPM Urinary Issue 09/25/22
aspirin 81 mg tablet,delayed release (Ecotrin Low Strength) 81 mg PO DAILY #30 tabs 09/30/22
fenugreek seed extract 610 mg PO DAILY Supplement 07/16/23
cinnamon bark extract 1,200 mg PO DAILY 01/01/24
glipizide 10 mg tablet 10 mg PO BID 01/01/24
metoprolol succinate 50 mg tablet,extended release 24 hr 50 mg PO DAILY 01/01/24
turmeric 1 tab PO DAILY 01/01/24
Review of Systems
-
History Source: Patient and Family ( at bedside)
A 12 point ROS was completed and negative except as noted: Yes
Constitutional: Denies Fever or Chills
EENT: Denies Sore Throat or Runny Nose
Respiratory: Denies Cough or Trouble Breathing
Cardiac: Denies Chest Pain, Diaphoresis, Palpitations or Syncope
Abdomen/GI: Denies Abdominal Pain, Nausea, Vomiting, Diarrhea, Constipated, Bloody Stools or Black Stools
: Denies Dysuria, Frequency, Flank Pain, Incontinence, Difficulty Voiding or Urgency
Musculoskeletal: Reports Other (Right lower extremity lateral malleolus with chronic open large yellow dried ulcer no drainage surrounding area with purpleish red blanchable above area on tib-fib brown pigmentation chronic changes, left lower
anterior tib-fib mid open ulceration to bone covered with dressing); Denies Joint Pain or Edema
Skin: Denies Itching or Rash
Neurological: Denies Dizzy or Headache
Endocrine: Reports No Symptoms
Hematologic/Lymphatic: Reports No Symptoms
Psych: Reports Calm
Physical Exam
Vital Signs
Vital Signs
Temp Pulse Resp BP Pulse Ox
98.6 F 86 16 114/66 99
05/09/24 14:56 05/09/24 14:56 05/09/24 14:56 05/09/24 14:56 05/09/24 14:56
Physical Exam
General: Comfortable, Conversant and Pain (To touch right lower extremity); No Fever or Chills
HEENT: NormoCephalic, Anicteric, Moist mucous membranes, PERRLA, Witt Conjunctivae and No Ptosis
Respiratory: Clear; No Wheezes, Rales or Rhonchi
Cardiac: S1/S2, Regular Rhythm and Murmur (3 out of 6 systolic); No Rub, Gallop or Peripheral Edema
Breast: Deferred by me
GI: Soft, Non Tender, Non Distended, Normal Bowel Sounds and No Hepatosplenomegaly
Genito-urinary: Deferred by me
Musculoskeletal: No Clubbing, No Cyanosis, No Edema and Other (Right lower extremity lateral malleolus with chronic open large yellow dried ulcer no drainage surrounding area with purpleish red blanchable above area on tib-fib brown pigmentation
chronic changes, left lower anterior tib-fib mid open ulceration to bone covered with dressing)
Skin: Warm and Dry
Neuro: AO x 3, No Motor Deficits, Nonfocal/grossly intact, Cranial Nerves Intact and No Sensory Deficits; No Slurred Speech, Facial Droop, Tremors or Sedated
Psych: Calm
Laboratory Results
-
05/09/24 15:13
05/09/24 15:13
Laboratory Results
Lactic Acid 2.7 mmol/L (0.7-2.0) H 05/09/24 15:13
Total Bilirubin 0.8 mg/dl (0.2-1.3) 05/09/24 15:13
AST 21 U/L (17-59) 05/09/24 15:13
ALT 16 U/L (0-50) 05/09/24 15:13
Alkaline Phosphatase 112 U/L (38-126) 05/09/24 15:13
Data Reviewed
-
Lab Data: Labs Reviewed by me
Impression/Plan
-
Impression/plan:
Admit to MedSurg
#Right lower extremity Acute on Chronic Open Nonhealing wound RIGHT ANKLE -nondraining dry ulcer
Acute on chronic LEFT SILVA chronic open wound with bone visualization
#Peripheral Vascular Disease s/p Multiple RLE Stents and LLE
# S/P Right Metatarsal Bone Resection
#S/p Right 5th Toe Amputation
#S/p Left great toe Amputation
Lactic acid 2.7 will trend, afebrile, WBC10.3 does not appear infected
-Consult vascular surgery-Dr. Palomo made aware patient on Coumadin we will hold current Coumadin give single dose of vitamin K 5 mg p.o. now repeat INR in a.m.
-Consult podiatry Dr. Ortiz
-IV vancomycin, IV cefepime started in ER will continue per recommendations of Dr. Ortiz
-N.p.o. after midnight for angiogram in a.m. by Dr. Palomo
-PT/OT consult
#Diabetes Mellitus, Type II
Diabetic Neuropathy
-Accu-Cheks with SSI, check HgbA1c
-Hold metformin at 1000 mg twice daily, Jardiance 25 mg daily, will decide 10 mg twice daily
#Paroxysmal Atrial Fibrillation status post ablation 2011, cardioversion x 5
-Patient is on Coumadin
INR 2.18
-Dr. Palomo made aware patient on Coumadin we will hold current Coumadin give single dose of vitamin K 5 mg p.o. now repeat INR in a.m.
-N.p.o. after midnight for angiogram in a.m. by Dr. Palomo
-May restart Coumadin after procedure
#Essential Hypertension
BP 114/66
Continue metoprolol succinate 50 mg daily with hold parameters, losartan 12.5 mg daily with hold parameters
#Hypertrophic Obstructive Cardiomyopathy�recovered
#Chronic CHF
-I/O, daily weights
Will hold 40 mg Lasix p.m., Lasix 80 mg a.m. as he currently appears dry consider resuming tomorrow post angio
2D echo: 10/16/2020
1. Moderate left ventricular hypertrophy with severe septal hypertrophy,
apical septal hypokinesis and EF 55-60%
2. Resting intraventricular LV gradient of 16mmHg, rising to 40 mmHg with Valsalva
3. Dense mitral annular calcification, mild-moderate mitral regurgitation and markedly dilated left atrium
4. Bioprosthetic aortic valve, peak/mean gradient 11/6 mmHg, no aortic regurgitation
5. Normal right heart with mild tricuspid regurgitation, ICD wire, and pulmonary artery systolic pressure of 30 mmHg
6. Mildly dilated ascending aorta, 4.1 cm
#Ventricular Tachycardia s/p ICD, had a replacement 2011
#Pacemaker
#Aortic stenosis AVR bovine with maze procedure 11/03/2011
#CAD/MS
-Continue metoprolol succinate 50 mg daily with hold parameters, aspirin 81 mg daily
#Hyperlipidemia
-No statins listed
#BPH
-Continue Flomax 0.4 mg at bedtime
#GERD
#Hiatal hernia
Other PMH:
Renal calculi-Intravascular Lithotripsy
Diverticulosis/diverticulitis
Active smoker�cigar
DVT prophylaxis
Patient on current Coumadin will hold for angiogram tomorrow
Full code
[2024-05-09 16:48] VITALS: BMI 22.7
--- NOTE | 2024-05-09 17:02 | CON.VAS ---
Consultation
Consultation Request
Date/Time Consultation Performed: 05/09/24 1700
Requesting Provider: Alejandro Aburto JR, MD
Performing Provider: REYMUNDO Wesley
Reason for Consultation: Right lower extremity cellulitis
Medical History
-
Chief Complaint: Right lower extremity worsening chronic lateral ankle wound
History of Present Illness:
This is a 78-year-old male with extensive medical history, as noted below and is well-known to our service for multiple endovascular interventions, last intervention from a vascular perspective was a right lower extremity arteriogram in December
2023 (right lower extremity arteriogram with inability to recanalize occluded proximal posterior tibial artery). Reviewed outpatient electronic medical records which note he has not followed up in our office since December. However, he has been
seeing Dr. Ortiz from podiatry in the outpatient setting. Had undergone wound debridement and VAC placement with graft coverage with Dr. Ortiz. He now presents to [place] ED with worsened redness of his right foot and ankle and at the
encouragement of Dr. Leon he was instructed to report to the ED. Nonhealing wounds as well. Now has a wound in his first toe/area of small dry gangrene. Medial ankle wound persistent as well. Patient notes continued pain in his right foot
pretty much constantly.
Past Medical History
Past Medical History: Arrhythmias (Paroxysmal Atrial Fibrillation status post ablation 2011, cardioversion x 5, Ventricular Tachycardia s/p ICD, had a replacement 2011), CAD, CHF (Hypertrophic obstructive cardiomyopathy), HTN, NIDDM and Other
(Peripheral arterial disease, diabetic neuropathy, hyperlipidemia, BPH, renal calculi, diverticulosis, hiatal hernia)
Past Surgical History: Cardiac (Aortic stenosis AVR bovine with maze procedure 11/03/2011), Cholecystectomy, Tonsilectomy and Other (Right metatarsal bone resection, right foot fifth digit amputation, left hallux toe amputation, colon polyp, and
inguinal hernia repair)
Social History
Tobacco: Smoker (Active smoker cigars)
Personal:
Living: With Family
Allergies / Home Medications
Allergy/AdvReac Type Severity Reaction Status Date / Time
iodine [Iodine] Allergy Severe nausea/vomi Verified 05/09/24 14:58
ting
lisinopril Allergy Severe 'light Verified 05/09/24 14:58
sweats,
achiness,
fatigue'
piperacillin Allergy Severe Rash Verified 05/09/24 14:58
clopidogrel [From Plavix] Allergy Intermediate ? Verified 05/09/24 14:58
nausea,tiredness
Iodinated Contrast Media Allergy Intermediate nausea, Verified 05/09/24 14:58
vomiting
pravastatin [Pravastatin] Allergy Intermediate nausea,tire Verified 05/09/24 14:58
dness
simvastatin [Simvastatin] Allergy Intermediate nausea/tire Verified 05/09/24 14:58
dness
tazobactam Allergy Intermediate Rash Verified 05/09/24 14:58
�Medication �Instructions �Recorded �Confirmed �Type
metformin 1,000 mg tablet 1,000 mg PO BID Diabetes 01/27/17 05/09/24 History
potassium chloride 20 mEq 20 meq PO BID electrolyte repletion 01/27/17 05/09/24 History
tablet,extended
release(part/cryst) (Klor-Con M)
furosemide 40 mg tablet (Lasix) 80 mg PO DAILY Fluid 12/10/17 05/09/24 History
retention/Swelling
cyanocobalamin (vitamin B-12) 1,000 mcg PO DAILY Supplement 05/02/18 05/09/24 History
1,000 mcg tablet
warfarin 5 mg tablet (Jantoven) 5 mg PO MOTUWEFRSA Blood clot 05/02/18 05/09/24 History
prevention/tx
warfarin 5 mg tablet (Jantoven) 7.5 mg PO SUTH Blood clot 05/02/18 05/09/24 History
prevention/tx
losartan 25 mg tablet 25 mg PO DAILY Blood Pressure 06/01/19 05/09/24 History
cholecalciferol (vitamin D3) 25 25 mcg PO DAILY Supplement 06/08/20 05/09/24 History
mcg (1,000 unit) capsule (Vitamin
D3)
chromium picolinate 1,000 mcg 500 mcg PO DAILY Supplement 06/08/20 05/09/24 History
tablet
empagliflozin 25 mg tablet 25 mg PO DAILY Diabetes 09/25/22 05/09/24 History
(Jardiance)
furosemide 40 mg tablet 40 mg PO QPM Fluid 09/25/22 05/09/24 History
Retention/Swelling
tamsulosin 0.4 mg capsule (Flomax) 0.4 mg PO QPM Urinary Issue 09/25/22 05/09/24 History
aspirin 81 mg tablet,delayed 81 mg PO DAILY #30 tabs 09/30/22 05/09/24 Rx
release (Ecotrin Low Strength)
fenugreek seed extract 610 mg PO DAILY Supplement 07/16/23 05/09/24 History
cinnamon bark extract 1,200 mg PO DAILY 01/01/24 05/09/24 History
glipizide 10 mg tablet 10 mg PO BID 01/01/24 05/09/24 History
metoprolol succinate 50 mg 50 mg PO DAILY 01/01/24 05/09/24 History
tablet,extended release 24 hr
turmeric 1 tab PO DAILY 01/01/24 05/09/24 History
Review of Systems
-
History Source: Patient
Constitutional: Reports No Symptoms
EENT: Reports No Symptoms
Respiratory: Reports No Symptoms
Cardiac: Reports No Symptoms
Vascular: Reports Leg Pain / Claudication and Other (Intermittent pain at right foot that has worsened recently)
Abdomen/GI: Reports No Symptoms
: Reports No Symptoms
Musculoskeletal: Reports No Symptoms
Skin: Reports Other (Right lateral ankle wound and left calf wound chronic)
Neurological: Reports No Symptoms
Endocrine: Reports No Symptoms
Physical Exam
Vital Signs
Temp Pulse Resp BP Pulse Ox
98.6 F 86 16 114/66 99
05/09/24 14:56 05/09/24 14:56 05/09/24 14:56 05/09/24 14:56 05/09/24 14:56
Lab Results
05/09/24 15:13
05/09/24 15:13
Physical Exam
General: No Apparent Distress
HEENT: Normocephalic, Anicteric and Atraumatic
Respiratory: Non Labored Respirations
Cardiac: Negative JVD
GI: Soft, Non Tender and Non Distended
Musculoskeletal: No Edema
Skin: Other (Wound at lateral aspect of right ankle and left calf)
Neuro: AO x 3
Assessment / Plan
-
Assessment: 78-year-old male with nonhealing bilateral lower extremity wounds and peripheral arterial disease
Plan:
Admit to hospitalist team for workup of cellulitis
Will obtain arterial ultrasound with THOMAS/TBI to establish a comparison and follow-up from prior angiograms, we will also obtain vein mapping as there is a high suspicion that he will require arterial bypass if targets can be identified
Please hold Coumadin for possible angiogram tomorrow, pending INR in the morning
N.p.o. at midnight for possible angiogram tomorrow
--- NOTE | 2024-05-09 17:04 | W.PN.UPDATE ---
Update Note
Progress Note Update
Seen and evaluated in the emergency room. 78-year-old male with extensive medical history. Well-known to our service. Last intervention from a vascular perspective was a right lower extremity arteriogram in December 2023 (right lower extremity
arteriogram with inability to recanalize occluded proximal posterior tibial artery). From my review of the electronic medical records in the outpatient setting, he has not followed up in our office since then. Has been seeing Dr. Ortiz from
podiatry. Had undergone wound debridement and VAC placement with graft coverage. Now presents with worsened redness of his right foot and ankle. Nonhealing wounds as well. Now has a wound in his first toe/area of small dry gangrene. Medial
ankle wound persistent as well. Patient notes continued pain in his right foot pretty much constantly.
On exam/right femoral pulse palpable, but somewhat weaker. And mostly palpable higher in the groin. Distally nonpalpable. Right foot lateral ankle ulceration appears to have some sort of graft coverage. Appears slightly dry. Right first toe
with some ischemic changes and distal point gangrene dry. Has dependent rubor with elevation pallor.
Plan/ Critical limb ischemia right lower extremity. I do not think this is cellulitis but rather dependent rubor. I reviewed his prior angiogram that demonstrates a posterior tibial artery reconstituted runoff. At this point would recommend
admission to the hospitalist group. Holding of Coumadin. Plan for arteriogram, possibly tomorrow if INR is reasonable. Likely would require staged bypass if posterior tibial artery target is still reasonable on angiography and he has a reasonable
conduit. And meanwhile we will obtain noninvasive lower extremity arterial imaging as well as ultrasound vein mapping to assess for potential conduit for bypass.
[2024-05-09] MEDS: MAXIPIME 1000 MG IV (17:08)
[2024-05-09] MEDS: VANCOCIN 540 MG IV (17:17)
[2024-05-09 17:38] LABS: INR 2.18; PT 24.4 Sec (11.4-14.6)
[2024-05-09] MEDS: NSS 250 IV (17:39)
--- NOTE | 2024-05-09 18:06 | W.PN.UPDATE ---
Update Note
Progress Note Update
This is an addendum to the H&P written by Gracy Bland on 05/09/2024. Patient seen and examined independently with ORTHOPEDIC PHYSICIAN.
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
tachycardia status post ICD, TAVR, hypertension, hyperlipidemia, BPH, renal calculi, GERD, presenting with acute cellulitis of right lower extremity. He was recommended by Dr. Ortiz to come to the emergency room for IV antibiotics.
Labs show potassium 5.3. Lactic acid 2.7
On examination patient has a right lateral ankle ischemic ulcer. Clearly nonhealing but no discharge or active infection. No surrounding cellulitis but there is surrounding rubor likely due to arterial insufficiency. Vancomycin and cefepime for
now although may not need antibiotics. IV fluids were given.
Vascular surgery consulted and ordered your ultrasound. Plan for angiogram tomorrow. N.p.o. past midnight. Podiatry consulted. Patient appears dry on examination however he is on 120 mg of Lasix per day. Hold this for now. Hold oral diabetic
medications. Insulin sliding scale.
INR of 2.18. Hold Coumadin. Give Vitamin K.
[2024-05-09] MEDS: MEPHYTON 5 MG PO (18:44)
[2024-05-09 20:39] VITALS: BP 129/55; BMI 23.8
--- NOTE | 2024-05-09 21:18 | PHA.VAN.IN ---
Assessment
- Assessment
Renal Function: Appears similar to baseline (01/28/24 BASELINE SCR = 1.2)
Concomitant Antimicrobials: CEFEPIME
- Previous Dosing Experience
Previous Regimen: 750MG IV Q12H
Date of Regimen: 07/10/18
Provided Trough of: UNKNOWN
Provided AUC of: UNKNOWN
Patient's SCR is: Elevated compared to previous dosing experience (07/10/18 SCR = 0.9)
Patient's weight is: Decreased compared to previous dosing experience (07/10/18 WT = 84.4 KG)
AUC Dosing Plan
- Dosing Variables
Dosing Weight (kg): 79.6
Dosing CrCl (ml/min): 57
Vd coefficient (L/kg): 0.7
- Empiric Dosing
Initial / Loading Dose: 2GM
Maintenance Regimen: 1500MG IV Q24H
Estimated AUC (mcg*h/mL): 521
Estimated Peak (mcg*h/mL): 37.9
Estimated Trough (mcg/ml): 10.9
Estimated Half Life (H): 13.4
Pharmacokinetics Vancomycin I
- -
Patient Age: 78
Patient Sex: Male
Vancomycin Day #: 1
Indication: Skin And Soft Tissue ([R] LATERAL ANKLE ULCER )
Requesting Provider: MAKAYLA
Pertinent Antimicrobial Allergies:
Allergies
piperacillin Allergy (Verified 05/09/24 18:14)
Rash
tazobactam Allergy (Verified 05/09/24 18:14)
Rash
Height / Weight:
Height 6 ft
Actual Weight 79.56 kg
- Vital Signs / Lab Results
Temp Pulse Resp BP Pulse Ox
98.6 F 73 16 129/55 99
05/09/24 20:39 05/09/24 20:39 05/09/24 20:39 05/09/24 20:39 05/09/24 20:39
Lab Results - Hematology
05/09/24
15:13
WBC 10.3
Lab Results - Chemistry
05/09/24
15:13
BUN 27 H
Creatinine 1.2
Albumin 4.0
05/09/24
15:13
Lactic Acid 2.7 H
[2024-05-09] MEDS: TYLENOL 650 MG PO (21:19)
[2024-05-09] MEDS: FLOMAX 0.4 MG PO (21:19)
[2024-05-09 23:31] VITALS: BP 100/54
[2024-05-09 23:58] LABS: Glucose - Point of Care 155 mg/dl (70-99)
[2024-05-10] VITALS (7 sets, daily range): BP systolic 103–127; BP diastolic 49–58; PULSE 69–70; O2SAT 99; BMI 23.8
[2024-05-10] MEDS: MELATONIN 5 MG PO (01:16)
[2024-05-10] MEDS: VANCOCIN 530 MG IV (06:14)
[2024-05-10 07:05] LABS: Glucose - Point of Care 111 mg/dl (70-99)
[2024-05-10 07:15] LABS: INR 1.52; PT 18.6 Sec (11.4-14.6)
[2024-05-10] MEDS: NOVOLOG FLEXPEN-LOW RESISTANCE SC ×2 (07:23→12:27)
[2024-05-10 07:24] LABS: % Basophils 0.4 % (0-2); % Eosinophils 2.7 % (0-6); % Immature Granulocytes 0.5 % (0-0.5); % Lymphocytes 25.2 % (20.5-51.1); % Neutrophils 62.2 % (42.2-75.2); Absolute Eosinophils 0.2 10^3/uL (0-0.7); Absolute Monocytes 0.7 10^3/uL (0.1-0.6); Absolute Neutrophils 4.9 10^3/uL (1.4-6.5); Hematocrit 35.6 % (39.0-52.0); Hemoglobin 11.4 g/dL (13.0-18.0); Mean Corpuscular Hgb 30.6 pg (27.0-31.0); Mean Corpuscular Volume 95.7 fL (80.0-94.0); Mean Platelet Volume 11.4 fL (7.4-10.4); Nucleated Red Blood Cells % 0 % (-); Platelet Count 170 10^3/uL (130-400); Red Blood Cell Count 3.72 10^6/uL (4.70-6.10); Red Cell Dist. Width 14.5 % (11.5-14.5); White Blood Cell Count 7.8 10^3/uL (4.8-10.8)
[2024-05-10 07:35] LABS: ALT (SGPT) 13 U/L (0-50); AST (SGOT) 18 U/L (17-59); Albumin 3.4 g/dl (3.5-5.0); Alkaline Phosphatase 94 U/L (38-126); Blood Urea Nitrogen 28 mg/dl (9-20); Calcium 8.8 mg/dl (8.4-10.2); Carbon Dioxide 27 mmol/L (22-30); Chloride 101 mmol/L (98-107); Estimated Creatinine Clearance 62 ml/min; Glucose 86 mg/dl (70-99); Potassium 4.1 mmol/L (3.5-5.1); Sodium 137 mmol/L (135-145); Total Bilirubin 1.2 mg/dl (0.2-1.3); eGFR > 60.00
[2024-05-10] MEDS: VITAMIN B-12 1000 MCG PO (09:02)
[2024-05-10] MEDS: ASPIR LOW (ENTERIC COATED) 81 MG PO (09:02)
[2024-05-10] MEDS: TOPROL XL 50 MG PO (09:02)
[2024-05-10] MEDS: COZAAR 25 MG PO (09:02)
[2024-05-10] MEDS: VITAMIN D3 (cholecalciferol) 25 MCG PO (09:03)
[2024-05-10 09:21] LABS: Lactic Acid 0.9 mmol/L (0.7-2.0)
--- NOTE | 2024-05-10 09:24 | PHA.VAN.FU ---
Vancomycin Assessment / Plan
- Assessment
Renal Function: Stable
WBC's are: WNL
In the past 24 hrs, patient has been: Afebrile
- Dosing Plan
Continue: Vanc 1500mg Q24H
- Monitoring Plan
No level(s) ordered at this time: consider levels in next few days
- Follow Up
Pharmacy will continue to follow.
Vancomycin Follow UP
- -
Patient Age: 78
Patient Sex: Male
Vancomycin Day #: 2
Indication: Skin And Soft Tissue
Requesting Provider: Ching Bland
Pertinent Antimicrobial Allergies:
piperacillin / tazobactam - Rash
Height / Weight:
Height 6 ft
Actual Weight 79.56 kg
Pertinent Past Medical History: PAD, DM
- Vital Signs / Lab Results
Temp Pulse Resp BP Pulse Ox
97.9 F 71 18 107/68 98
05/10/24 07:06 05/10/24 07:06 05/10/24 07:06 05/10/24 09:02 05/10/24 07:06
Lab Results - Hematology
05/09/24 05/10/24
15:13 05:39
WBC 10.3 7.8
Lab Results - Chemistry
05/09/24 05/10/24
15:13 05:39
BUN 27 H 28 H
Creatinine 1.2 1.1
Estimated Creat Clear 62
Albumin 4.0 3.4 L
05/09/24 05/10/24
15:13 09:00
Lactic Acid 2.7 H 0.9
--- NOTE | 2024-05-10 09:53 | W.CS.POD ---
Consult Summary - Podiatry
-
Patient is well known to me for treatment of diabetic ischemic ulcers to B/L LEs.
After last visit with Dr Marrero we attempted debridements of wounds, application of skin subs as well as primary repair of tissue over exposed bone left leg.
Wound vacs were applied at that time. (January 2024) since then we have been doing weekly wound care and wounds have not demonstrated much healing. Grafts failed to take and minimal granulation was oted to wound. Over the last 2 weeks there has
been increased rubor to the right foot. There was some malodor to the Rt ankle and LLE pt placed on culture derived abt therapy and wound VAC held.
RLE rubor and possible cellulitis to the right ankle was noted yesterday 05/09/24 at his follow up visit and I asked that he present to the ED for further studies as well as vascular evaluation.
PMH/Meds/Allergies were reviewed
PHYSICAL EXAM- from 05/09/24
non palpable pedal pulses RLE, feeeble DPA left , non palpable SIGHTSEEING GUIDE LLE, Wound LLE with exposed tibia- measures 4.2 cm x 0.8 cm no odor or drainage, No edema LLE. + pain over periwound
Right ankle wound measures 3.0 cm x 2.2 cm, approx. 2% granulation and 98% fibotic wound bed, no undermining or exposed bone.
There + increased edema to the jayjay wound site. + increased erythema noted to jayjay wound and mid calf. The RLE and LLE are cool to touch.
Advanced muscle atrophy B/L
Drop foot B/L LEs with gait dysfunction
Loss of protective sensation/absent sensation from toes to ankles/distal leg
A/P
1-DM2 with PAD and Peripheral neuropathy
2-Cellulitis RLE Vs Limb threatening Ischemia
3-Drop foot B/L
4-Chronic ischemic diabetic leg wounds- failed graft and primary closure procedures and advanced wound care likely the result of ongoing PAD. Pt and his family are well aware of the high risk of LE amputation and this was understood when they last
spoke with Dr Marrero. We attempted to treat wounds and hope for some improvement and healing of the wounds, however, unfortunately, this has not been the case and limb salvage may no longer be possible. I discussed with Dr Marrero this am, and will
follow along
WBAT for now. Wound care as ordered
--- NOTE | 2024-05-10 10:14 | W.PN.VS ---
Addendum entered and electronically signed by Sampson Marrero III, MD 05/10/24 11:37:
This patient was seen and examined in collaboration with ISAAK Sneed. I agree with the history and physical exam as well as the assessment and plan. I have the following additions:
He is well-known to me
Previous bilateral lower extremity endovascular interventions
Nonhealing left silva wound with exposed tibia
Nonhealing lateral right ankle wound
Severe tibial occlusive disease.
Poorly controlled diabetes chronically
Based on the location of his right lateral ankle wound and his recent arteriogram there are no good traditional revascularization options.
At this point he may be best served with amputation
Will discuss further with patient and his
Continue antibiotics and wound care for now
Signed:
Sampson Marrero III, MD
[facility] V[facility] Surgery
[phone] (dxwn)
Original Note:
Today's Communication / Plan
-
Patient seen and examined at bedside with Dr. Sampson Marrero III, below plan reviewed with attending.
Assessment/Plan
-
Assessment: 78-year-old male admitted with nonhealing bilateral lower extremity wounds and peripheral arterial disease, particularly reporting concern for right lateral ankle wound as he has been experiencing increased pain
Plan:
Will hold off on proceeding with angiogram today, would prefer to have results of vein mapping and arterial duplex in order to present all endovascular/surgical options to patient and .
Will reinitiate diet
Relayed plan to hospitalist via [facility] text and called to update
Subjective Data
-
Date of Service: May 10, 2024
Patient seen and examined at bedside, does endorse continued intermittent pain at right foot well-managed. Denies nausea, fever, chills, and chest pain.
Objective Data
-
Vital Signs
Temp Pulse Resp BP Pulse Ox
97.9 F 71 18 107/68 98
05/10/24 07:06 05/10/24 07:06 05/10/24 07:06 05/10/24 09:02 05/10/24 07:06
Intake and Output
05/09/24 05/10/24 05/11/24
06:59 06:59 06:59
Output Total 550 / 550
Balance -550 / -550
Output:
Urine, Voided 550 / 550
Other:
Number of approximated MODERATE 2
amounts of urine
Lab Results
05/10/24 05:39
05/10/24 05:39
Calcium 8.8 mg/dl (8.4-10.2) 05/10/24 05:39
Total Bilirubin 1.2 mg/dl (0.2-1.3) 05/10/24 05:39
AST 18 U/L (17-59) 05/10/24 05:39
ALT 13 U/L (0-50) 05/10/24 05:39
Alkaline Phosphatase 94 U/L (38-126) 05/10/24 05:39
Total Protein 6.0 g/dl (6.3-8.2) L 05/10/24 05:39
Albumin 3.4 g/dl (3.5-5.0) L 05/10/24 05:39
Physical Exam
-
No apparent distress, resting in bed comfortably
No tachycardia
No dyspnea on room air
ABD flat, nontender, nondistended
Right lateral ankle wound unchanged, non-malodorous
[2024-05-10 12:19] LABS: Glucose - Point of Care 209 mg/dl (70-99)
--- NOTE | 2024-05-10 12:49 | W.PN.HOSP.TC ---
Today's Communication/Plan
-
Monitor vital signs see plan
Continue vancomycin for now
Ultrasound lower extremity pending
Holding Coumadin, restart anticoagulation or pharmacological DVT prophylaxis once okay with vascular surgery
monitor INR
Assessment / Plan
Assessment / Plan
General: Comfortable, Conversant and Pain (To touch right lower extremity); No Fever or Chills
HEENT: NormoCephalic, Anicteric, Moist mucous membranes, PERRLA
Respiratory: Clear; No Wheezes, Rales or Rhonchi
Cardiac: S1/S2, Regular Rhythm and Murmur (3 out of 6 systolic)
GI: Soft, Non Tender, Non Distended, Normal Bowel Sounds
Musculoskeletal: No Clubbing, No Cyanosis, No Edema and Other (Right lower extremity lateral malleolus with chronic open large yellow dried ulcer no drainage surrounding area with purpleish red blanchable above area on tib-fib brown pigmentation
chronic changes, left lower anterior tib-fib mid open ulceration to bone covered with dressing)
Neuro: AO x 3, No Motor Deficits, Nonfocal/grossly intact
Psych: Calm
Right lower extremity Acute on Chronic Open Nonhealing wound RIGHT ANKLE -nondraining dry ulcer
Acute on chronic LEFT VILLAR chronic open wound with bone visualization
#Peripheral Vascular Disease s/p Multiple RLE Stents and LLE
# S/P Right Metatarsal Bone Resection
#S/p Right 5th Toe Amputation
#S/p Left great toe Amputation
Lactic acidosis on admission, now resolved
On admission vascular surgery wanted to hold Coumadin. Will continue to hold
Podiatry consulted
-IV vancomycin, IV cefepime started in ER, will continue per recommendations of Dr. Ortiz. cw vanc for now
Per Dr. Marrero from vascular surgery, based on patient wound location and his recent arteriogram, there are no traditional revascularization options. Ultrasound pending. might require amputation
#Diabetes Mellitus, Type II
Diabetic Neuropathy
-Accu-Cheks with SSI, recent A1c 7.4
-Hold metformin, Jardiance
#Paroxysmal Atrial Fibrillation status post ablation 2012, cardioversion x 5
-Patient is on Coumadin
INR 2.18 on admission, reversed INR as was recommended by vascular surgery
Continue to monitor INR, hold Coumadin
Restart once okay with vascular surgery
#Essential Hypertension
Continue metoprolol succinate 50 mg daily with hold parameters, losartan 12.5 mg daily with hold parameters
#Hypertrophic Obstructive Cardiomyopathy�recovered
#Chronic CHF
-I/O, daily weights
Restart Lasix
2D echo: 10/16/2020
1. Moderate left ventricular hypertrophy with severe septal hypertrophy,
apical septal hypokinesis and EF 55-60%
2. Resting intraventricular LV gradient of 16mmHg, rising to 40 mmHg with Valsalva
3. Dense mitral annular calcification, mild-moderate mitral regurgitation and markedly dilated left atrium
4. Bioprosthetic aortic valve, peak/mean gradient 11/6 mmHg, no aortic regurgitation
5. Normal right heart with mild tricuspid regurgitation, ICD wire, and pulmonary artery systolic pressure of 30 mmHg
6. Mildly dilated ascending aorta, 4.1 cm
#Ventricular Tachycardia s/p ICD, had a replacement 2011
#Pacemaker
#Aortic stenosis AVR bovine with maze procedure 11/03/2011
#CAD/DE
-Continue metoprolol succinate 50 mg daily with hold parameters, aspirin 81 mg daily
#Hyperlipidemia
-No statins listed
#BPH
-Continue Flomax 0.4 mg at bedtime
#GERD
#Hiatal hernia
Other PMH:
Renal calculi-Intravascular Lithotripsy
Diverticulosis/diverticulitis
Active smoker�cigar
DVT prophylaxis
SCD's; start pharm ppx or coumadin once ok with vascular
Full code
Anticipated Discharge: > 48 hours
Subjective/Interval History
-
Date of Service: May 10, 2024
Denies nausea
Objective Data
-
Labs:
Laboratory Results
05/10/24
05:39
WBC 7.8
Hgb 11.4 L
Hct 35.6 L
Plt Count 170
PT 18.6 H
INR 1.52
Sodium 137
Potassium 4.1
Chloride 101
Carbon Dioxide 27
BUN 28 H
Creatinine 1.1
Glucose 86
Calcium 8.8
Total Bilirubin 1.2
AST 18
ALT 13
Alkaline Phosphatase 94
Vital Signs:
Vital Signs
Temp Pulse Resp BP Pulse Ox
97.9 F 71 18 107/68 98
05/10/24 07:06 05/10/24 07:06 05/10/24 07:06 05/10/24 09:02 05/10/24 07:06
I&O
05/09/24 05/10/24 05/11/24
06:59 06:59 06:59
Output Total 550 / 550
Balance -550 / -550
[2024-05-10 17:03] LABS: Glucose - Point of Care 243 mg/dl (70-99)
[2024-05-10] MEDS: FLOMAX 0.4 MG PO (17:18)
[2024-05-10] MEDS: LASIX 40 MG PO (17:18)
[2024-05-10] MEDS: NOVOLOG FLEXPEN-LOW RESISTANCE 2 UNITS SC (17:19)
[2024-05-10] MEDS: BACTROBAN 2% OINTMENT 1 APPLIC TOPICAL (21:22)
[2024-05-10] MEDS: TYLENOL 650 MG PO (21:40)
[2024-05-10 21:51] LABS: Glucose - Point of Care 254 mg/dl (70-99)
[2024-05-11] MEDS: MELATONIN 5 MG PO (02:40)
[2024-05-11] MEDS: VANCOCIN 530 MG IV (05:11)
[2024-05-11 05:21] VITALS: BMI 23.7
[2024-05-11 06:35] LABS: % Basophils 0.3 % (0-2); % Eosinophils 2.6 % (0-6); % Immature Granulocytes 0.7 % (0-0.5); % Lymphocytes 22.2 % (20.5-51.1); % Monocytes 7.4 % (1.7-9.3); % Neutrophils 66.8 % (42.2-75.2); Absolute Eosinophils 0.2 10^3/uL (0-0.7); Absolute Immature Granulocytes 0.1 10^3/uL (0-0.05); Absolute Lymphocytes 1.6 10^3/uL (1.2-3.4); Absolute Monocytes 0.5 10^3/uL (0.1-0.6); Absolute Neutrophils 4.7 10^3/uL (1.4-6.5); Hematocrit 33.1 % (39.0-52.0); Hemoglobin 11.1 g/dL (13.0-18.0); Mean Corp Hgb Conc. 33.5 g/dL (33.0-37.0); Mean Corpuscular Hgb 31.4 pg (27.0-31.0); Mean Corpuscular Volume 93.5 fL (80.0-94.0); Mean Platelet Volume 11.2 fL (7.4-10.4); Nucleated Red Blood Cells % 0 % (-); Platelet Count 157 10^3/uL (130-400); Red Blood Cell Count 3.54 10^6/uL (4.70-6.10); Red Cell Dist. Width 14.3 % (11.5-14.5)
[2024-05-11 06:37] LABS: INR 1.15
[2024-05-11 07:10] LABS: ALT (SGPT) 13 U/L (0-50); AST (SGOT) 17 U/L (17-59); Albumin 3.6 g/dl (3.5-5.0); Alkaline Phosphatase 102 U/L (38-126); Blood Urea Nitrogen 25 mg/dl (9-20); Calcium 8.7 mg/dl (8.4-10.2); Carbon Dioxide 25 mmol/L (22-30); Chloride 99 mmol/L (98-107); Estimated Creatinine Clearance 62 ml/min; Glucose 139 mg/dl (70-99); Sodium 134 mmol/L (135-145); Total Bilirubin 1.2 mg/dl (0.2-1.3); eGFR > 60.00
[2024-05-11 07:25] VITALS: BP 112/57
[2024-05-11 07:27] LABS: Glucose - Point of Care 139 mg/dl (70-99)
[2024-05-11] MEDS: NOVOLOG FLEXPEN-LOW RESISTANCE SC (07:33)
[2024-05-11] MEDS: LASIX 80 MG PO (07:39)
[2024-05-11] MEDS: COZAAR 25 MG PO (07:39)
[2024-05-11] MEDS: VITAMIN B-12 1000 MCG PO (07:39)
[2024-05-11] MEDS: TOPROL XL 50 MG PO (07:39)
[2024-05-11] MEDS: ASPIR LOW (ENTERIC COATED) 81 MG PO (07:39)
[2024-05-11] MEDS: VITAMIN D3 (cholecalciferol) 25 MCG PO (07:39)
[2024-05-11] MEDS: BACTROBAN 2% OINTMENT 1 APPLIC TOPICAL (07:41)
--- NOTE | 2024-05-11 09:55 | PHA.VAN.FU ---
Vancomycin Assessment / Plan
- Assessment
Renal Function: Stable
WBC's are: WNL
In the past 24 hrs, patient has been: Afebrile
- Dosing Plan
Continue: Vanc 1500mg Q24H
- Monitoring Plan
No level(s) ordered at this time: consider levels in next few days
- Follow Up
Pharmacy will continue to follow.
Vancomycin Follow UP
- -
Patient Age: 78
Patient Sex: Male
Vancomycin Day #: 3
Indication: Skin And Soft Tissue
Requesting Provider: Ching Bland
Pertinent Antimicrobial Allergies:
piperacillin / tazobactam - Rash
Height / Weight:
Height 6 ft
Actual Weight 79.18 kg
Pertinent Past Medical History: PAD, DM
- Vital Signs / Lab Results
Temp Pulse Resp BP Pulse Ox
98.2 F 71 18 112/57 99
05/11/24 07:25 05/11/24 07:25 05/11/24 07:25 05/11/24 07:25 05/11/24 07:25
Lab Results - Hematology
05/09/24 05/10/24 05/11/24
15:13 05:39 05:56
WBC 10.3 7.8 7.0
Lab Results - Chemistry
05/09/24 05/10/24 05/11/24
15:13 05:39 05:56
BUN 27 H 28 H 25 H
Creatinine 1.2 1.1 1.1
Estimated Creat Clear 62 62
Albumin 4.0 3.4 L 3.6
05/09/24 05/10/24
15:13 09:00
Lactic Acid 2.7 H 0.9
Microbiology Results
05/09/24 23:01 MRSA Screen - Final
Nose No Methicillin Resistant Staphylococcus aureus isolated.
05/09/24 17:15 Blood Culture - Preliminary
Blood/Venous No Growth in 24 hours- Final report to follow
05/09/24 15:13 Blood Culture - Preliminary
Blood/Venous No Growth in 24 hours- Final report to follow
--- NOTE | 2024-05-11 11:11 | W.PN.HOSP.TC ---
Addendum entered and electronically signed by Han Johnson MD 05/11/24 13:24:
Given his subtherapeutic INR. Will give 8 mg Coumadin prior to discharge. Patient is aware to start taking regular dose Coumadin starting tomorrow 05/12/2024.
Discussed with spouse over the phone
Addendum entered and electronically signed by Han Johnson MD 05/11/24 13:05:
Dr. Marrero from vascular surgery discussed with patient. He chose to follow-up outpatient and schedule for amputation
DC today on p.o. antibiotics
Time of discharge 36 minutes
Original Note:
Today's Communication/Plan
-
Monitor vital signs see plan
Discussed with vascular surgery this morning, patient will need BKA. They will speak with the patient today and will decide if patient would want at this admission versus set it up for later time
Continue antibiotics
Assessment / Plan
Assessment / Plan
General: Comfortable, Conversant and Pain (To touch right lower extremity); No Fever or Chills
HEENT: NormoCephalic, Anicteric, Moist mucous membranes, PERRLA
Respiratory: Clear; No Wheezes, Rales or Rhonchi
Cardiac: S1/S2, Regular Rhythm and Murmur (3 out of 6 systolic)
GI: Soft, Non Tender, Non Distended, Normal Bowel Sounds
Musculoskeletal: No Clubbing, No Cyanosis, No Edema and Other (Right lower extremity lateral malleolus with chronic open large yellow dried ulcer no drainage surrounding area with purpleish red blanchable above area on tib-fib brown pigmentation
chronic changes, left lower anterior tib-fib mid open ulceration to bone covered with dressing)
Neuro: AO x 3, No Motor Deficits, Nonfocal/grossly intact
Psych: Calm
Right lower extremity Acute on Chronic Open Nonhealing wound RIGHT ANKLE -nondraining dry ulcer
Acute on chronic LEFT VILLAR chronic open wound with bone visualization
#Peripheral Vascular Disease s/p Multiple RLE Stents and LLE
# S/P Right Metatarsal Bone Resection
#S/p Right 5th Toe Amputation
#S/p Left great toe Amputation
Lactic acidosis on admission, now resolved
On admission vascular surgery wanted to hold Coumadin. Will continue to hold
Podiatry following
-IV vancomycin, IV cefepime started in ER, will continue per recommendations of Dr. Ortiz. cw vanc for now
Per Dr. Marrero from vascular surgery, based on patient wound location and his recent arteriogram, there are no traditional revascularization options. Ultrasound noted. Will require BKA per vascular surgery. Vascular surgery will speak to the
patient today and will decide if patient wants to get this done this admission versus come back later.
If patient plans to get this set up outpatient then will likely be discharged today. Will treat with few days of p.o. antibiotics.
#Diabetes Mellitus, Type II
Diabetic Neuropathy
-Accu-Cheks with SSI, recent A1c 7.4
-Hold metformin, Jardiance
#Paroxysmal Atrial Fibrillation status post ablation 2011, cardioversion x 5
-Patient is on Coumadin
INR 2.18 on admission, reversed INR as was recommended by vascular surgery
Continue to monitor INR, hold Coumadin. Restart if there is no plan for surgery this admission
Restart once okay with vascular surgery
#Essential Hypertension
Continue metoprolol succinate 50 mg daily with hold parameters, losartan 12.5 mg daily with hold parameters
#Hypertrophic Obstructive Cardiomyopathy�recovered
#Chronic CHF
-I/O, daily weights
Restart Lasix
2D echo: 10/16/2020
1. Moderate left ventricular hypertrophy with severe septal hypertrophy,
apical septal hypokinesis and EF 55-60%
2. Resting intraventricular LV gradient of 16mmHg, rising to 40 mmHg with Valsalva
3. Dense mitral annular calcification, mild-moderate mitral regurgitation and markedly dilated left atrium
4. Bioprosthetic aortic valve, peak/mean gradient 11/6 mmHg, no aortic regurgitation
5. Normal right heart with mild tricuspid regurgitation, ICD wire, and pulmonary artery systolic pressure of 30 mmHg
6. Mildly dilated ascending aorta, 4.1 cm
#Ventricular Tachycardia s/p ICD, had a replacement 2011
#Pacemaker
#Aortic stenosis AVR bovine with maze procedure 11/03/2011
#CAD/[place]
-Continue metoprolol succinate 50 mg daily with hold parameters, aspirin 81 mg daily
#Hyperlipidemia
-No statins listed
#BPH
-Continue Flomax 0.4 mg at bedtime
#GERD
#Hiatal hernia
Other PMH:
Renal calculi-Intravascular Lithotripsy
Diverticulosis/diverticulitis
Active smoker�cigar
DVT prophylaxis
SCD's; start pharm ppx or coumadin once ok with vascular
Full code
Anticipated Discharge: Today
Subjective/Interval History
-
Date of Service: May 11, 2024
Denies nausea
Objective Data
-
Labs:
Laboratory Results
05/11/24
05:56
WBC 7.0
Hgb 11.1 L
Hct 33.1 L
Plt Count 157
PT 15.0 H
INR 1.15
Sodium 134 L
Potassium 4.0
Chloride 99
Carbon Dioxide 25
BUN 25 H
Creatinine 1.1
Glucose 139 H
Calcium 8.7
Total Bilirubin 1.2
AST 17
ALT 13
Alkaline Phosphatase 102
Vital Signs:
Vital Signs
Temp Pulse Resp BP Pulse Ox
98.2 F 71 18 112/57 99
05/11/24 07:25 05/11/24 07:25 05/11/24 07:25 05/11/24 07:25 05/11/24 07:25
I&O
05/10/24 05/11/24 05/12/24
06:59 06:59 06:59
Intake Total 1800 / 1800 120 / 120
Output Total 550 / 550 2775 / 2775 350 / 350
Balance -550 / -550 -975 / -975 -230 / -230
[2024-05-11 12:13] LABS: Glucose - Point of Care 234 mg/dl (70-99)
[2024-05-11] MEDS: NOVOLOG FLEXPEN-LOW RESISTANCE 2 UNITS SC (12:39)
--- NOTE | 2024-05-11 13:20 | W.DCSUMMARY ---
Discharge Summary
Discharge Data
Date of Admission: 05/09/24
Date of Discharge: 05/11/24
-
Pending Results: No
Hospital Course
78-year-old male with past medical history of PAD, hypertrophic obstructive cardiomyopathy, essential hypertension, paroxysmal atrial fibrillation status post ablation, cardioversion, ventricular tachycardia status post ICD, aortic stenosis status
post valve replacement, CAD/HI, hyperlipidemia, BPH, GERD, diverticulosis, PAD status post stents and toe amputation came to the hospital for possible worsening cellulitis and was sent by podiatry. Patient was initially started on IV antibiotics.
Patient was also seen by vascular surgery and initially plan was for arteriogram however given patient symptoms, vascular surgery rather recommended BKA. Per vascular surgery there were no traditional revascularization options other than
amputation. After discussion with vascular surgery, patient decided to follow-up outpatient for BKA and did not wanted to pursue amputation this hospitalization. Initially per vascular surgery recommendation on admission patient INR was reversed.
His INR was subtherapeutic prior to discharge. He was instructed to follow-up closely with his primary care provider for his Coumadin management. He was given 8 mg Coumadin the day of discharge and instructed to resume his usual dose of Coumadin
tomorrow starting 05/12/2024. Since patient shows not to get amputation this hospitalization and his symptoms were stable, he was then discharged home on oral antibiotics with instructions to follow-up with PCP, podiatry and vascular surgery closely
outpatient.
Discharge Plan
-
Patient Disposition: Home with Home Care
Discharge Diagnosis/Procedures: Nonhealing bilateral lower extremity wounds with severe peripheral arterial disease
Cellulitis with underlying severe peripheral arterial disease
Limb threatening ischemia
Subtherapeutic INR
Diet: As tolerated
Activity: As tolerated
Blood Work: INR check with your primary care physician
Activity Restrictions/Additional Instructions:
Restart Coumadin starting 03/11/2025
Referrals:
Sampson Marrero III, MD [Active] - in less than 1 week
Markus Segovia MD [Family Provider] - in less than 1 week
Prescriptions:
New
doxycycline hyclate 100 mg capsule
100 mg PO BID Qty: 14 0RF
mupirocin 2 % Ointment
1 applic topical DAILY Qty: 22 0RF
Continued
potassium chloride [Klor-Con M20] 20 MEQ tablet,ER particles/crystals
20 meq PO BID
metformin 1,000 MG tablet
1,000 mg PO BID
furosemide [Lasix] 40 MG tablet
80 mg PO DAILY
cyanocobalamin (vitamin B-12) 1,000 MCG tablet
1,000 mcg PO DAILY
losartan 25 MG tablet
25 mg PO DAILY
cholecalciferol (vitamin D3) [Vitamin D3] 25 MCG capsule
25 mcg PO DAILY
chromium picolinate 1,000 MCG tablet
500 mcg PO DAILY
Jardiance 25 mg Tablet
25 mg PO DAILY
furosemide 40 mg Tablet
40 mg PO QPM
tamsulosin [Flomax] 0.4 mg Capsule
0.4 mg PO QPM
aspirin [Ecotrin Low Strength] 81 mg tablet,delayed release (DR/EC)
81 mg PO DAILY Qty: 30 5RF
fenugreek seed extract
610 mg PO DAILY
metoprolol succinate 50 mg Tablet Extended Release 24 Hr
50 mg PO DAILY
glipizide 10 mg Tablet
10 mg PO BID
cinnamon bark extract 1,200 mg capsule
1,200 mg PO DAILY
turmeric 900 mg tablet
1 tab PO DAILY
Held
warfarin [Jantoven] 5 MG tablet
7.5 mg PO SUTH
Hold Instructions: Resume on 05/12/24.
warfarin [Jantoven] 5 MG tablet
5 mg PO MOTUWEFRSA
Hold Instructions: Resume on 05/12/24.
Discharge Orders:
Discharge Patient (As Directed); Ordered 05/11/24
Ordered By: Han Johnson
Discharge Date and Time
Discharge Date/Time: 05/11/24 16:01
Print Language: KYRGYZ
--- NOTE | 2024-05-11 13:57 | CM ---
Pt stable for d/c today. Initial assessment completed. Pt was sent by podiatry for chronic wound to right ankle and left lower silva. Pt is a .
Pt reports that he lives w/ spouse in a 2ST[place]- 3 steps to enter. Pt is independent w/ the use of a cane, pt has grab bars in the home. Pt is independent w/ ADLs.
Pt denies SNF/VN/PT hx. Pt engaged in OP therapy in the past. Pt denies any current home or OP services at this time
Address, point of contact and insurance verified
PCP: Dr. Segovia
Pharmacy: [facility]. Pt states he uses the [facility] for mail orders
Pt aware of d/c today and is not reporting any needs at this time. Spouse will transport
IMM reviewed, copy on chart
Plan: Home; no needs
[2024-05-11] MEDS: COUMADIN 8 MG PO (14:17)
[2024-05-11 15:13] VITALS: BP 96/51
== END 2024-05-11 16:01 | disposition home or self-care (01) | DRG 300 ==
LOC: 4 WEST ACU 17:21
PROVIDERS: Clinical Nurse Specialist Family Health; Emergency Medicine; ADMITTING PHYSICIAN Hospitalist; ATTENDING PHYSICIAN Internal Medicine; CONSULT PHYSICIAN Podiatrist Foot & Ankle Surgery; EMERGENCY PHYSICIAN Emergency Medicine; FAMILY PHYSICIAN Family Medicine; OTHER PHYSICIAN Nurse Practitioner
DX: E11.52 Type 2 diabetes mellitus with diabetic peripheral angiopathy with gangrene (principal); E87.20 Acidosis, unspecified; I47.20 Ventricular tachycardia, unspecified; L97.311 Non-pressure chronic ulcer of right ankle limited to breakdown of skin; L97.826 Non-pressure chronic ulcer of other part of left lower leg with bone involvement without evidence of necrosis; I70.261 Atherosclerosis of native arteries of extremities with gangrene, right leg; I70.248 Atherosclerosis of native arteries of left leg with ulceration of other part of lower leg; E11.40 Type 2 diabetes mellitus with diabetic neuropathy, unspecified; E78.00 Pure hypercholesterolemia, unspecified; F17.290 Nicotine dependence, other tobacco product, uncomplicated; I11.0 Hypertensive heart disease with heart failure; I48.0 Paroxysmal atrial fibrillation; I25.10 Atherosclerotic heart disease of native coronary artery without angina pectoris; I25.2 Old myocardial infarction; K21.9 Gastro-esophageal reflux disease without esophagitis; N40.0 Benign prostatic hyperplasia without lower urinary tract symptoms; R79.1 Abnormal coagulation profile; Z95.810 Presence of automatic (implantable) cardiac defibrillator; Z95.3 Presence of xenogenic heart valve; Z91.041 Radiographic dye allergy status; Z89.421 Acquired absence of other right toe(s); Z89.412 Acquired absence of left great toe; Z88.8 Allergy status to other drugs, medicaments and biological substances; Z79.899 Other long term (current) drug therapy; Z95.820 Peripheral vascular angioplasty status with implants and grafts; Z79.84 Long term (current) use of oral hypoglycemic drugs; Z79.82 Long term (current) use of aspirin; Z79.01 Long term (current) use of anticoagulants
CPT/HCPCS: 80053; 82962; 83605; 85025; 85610; 87040; 87070; 93922; 93925; 93970; 97162; 97166; 99285

== ENCOUNTER → 2024-05-17 16:43 | Outpatient (REF) | payer MEDICARE, OTHER, SELFPAY ==
[2024-05-17 18:09] LABS: INR 2.12; PT 23.9 Sec (11.4-14.6)
== END ==
LOC: REG 16:43
PROVIDERS: ATTENDING PHYSICIAN Podiatrist Foot & Ankle Surgery; FAMILY PHYSICIAN Family Medicine
DX: Z01.812 Encounter for preprocedural laboratory examination (principal); I73.9 Peripheral vascular disease, unspecified
CPT/HCPCS: 36415; 85610

== ENCOUNTER 2024-06-06 10:34 | Inpatient (IN) | payer MEDICARE, OTHER, SELFPAY ==
[2024-06-06] VITALS (13 sets, daily range): BP systolic 104–129; BP diastolic 54–72; BMI 24.0
[2024-06-06 11:01] LABS: Hematocrit 37.7 % (39.0-52.0); Hemoglobin 12.3 g/dL (13.0-18.0); Mean Corp Hgb Conc. 32.6 g/dL (33.0-37.0); Mean Corpuscular Hgb 30.4 pg (27.0-31.0); Mean Corpuscular Volume 93.3 fL (80.0-94.0); Mean Platelet Volume 10.1 fL (7.4-10.4); Platelet Count 237 10^3/uL (130-400); Red Blood Cell Count 4.04 10^6/uL (4.70-6.10); Red Cell Dist. Width 14.4 % (11.5-14.5); White Blood Cell Count 13.6 10^3/uL (4.8-10.8)
[2024-06-06 11:13] LABS: INR 1.07; PT 14.2 Sec (11.4-14.6)
[2024-06-06 11:14] LABS: APTT 31.1 Sec (23.4-35.0); Blood Urea Nitrogen 28 mg/dl (9-20); Calcium 9.3 mg/dl (8.4-10.2); Carbon Dioxide 26 mmol/L (22-30); Estimated Creatinine Clearance 52 ml/min; Glucose 270 mg/dl (70-99); Potassium 4.7 mmol/L (3.5-5.1); Sodium 132 mmol/L (135-145); eGFR 56.58
[2024-06-06 11:36] LABS: Glucose - Point of Care 287 mg/dl (70-99)
[2024-06-06] MEDS: PERIDEX 0.12% ORAL RINSE 15 ML PO (11:38)
[2024-06-06] MEDS: NSS 500 IV (11:38)
[2024-06-06] MEDS: BACTROBAN NASAL 1 GRAM NASAL (11:38)
[2024-06-06 11:44] LABS: Chloride 98 mmol/L (98-107)
[2024-06-06] MEDS: NOVOLOG vial 4 UNITS SC (12:31)
--- NOTE | 2024-06-06 15:06 | W.SUR.POST ---
Surgical Immediate Post Op
Note
Pre Op Diagnosis: CLTI
Post Op Diagnosis: CLTI
Procedure Performed: R BKA
Primary Surgeon: Sampson Marrero
Secondary Surgeons: Tin Venegas
Anesthesia: see anesthesia flowsheet
Estimated Blood Loss: 50cc
Fluids: see anesthesia flowsheet
Drains/Shunts: none
Specimens/Cultures: R leg
Doppler/Duplex/Angio (Y/N): none
Complications: none
Operative Findings: Right BKA
--- NOTE | 2024-06-06 15:24 | OR.RPT ---
Operative Report
Operative Report
Date of Operation: 06/06/2024
Pre Op Diagnosis:
1. [place] artery atherosclerosis, right lower extremity with nonhealing wounds -gangrene and ulceration
2. Diabetes with atherosclerosis
Post Op Diagnosis:
1. [place] artery atherosclerosis, right lower extremity with nonhealing wounds -gangrene and ulceration
2. Diabetes with atherosclerosis
Procedure: RIGHT lower extremity amputation, below the knee
Surgeon: Sampson Marrero III, MD
Teaching Music Lessons: Tin Venegas MD, PGY4
Anesthesia: General
Complications: None
Estimated Blood Loss: 150 cc
History and Indications for Procedure: 78-year-old male with nonhealing right ankle and foot wounds with none revascularizable arterial disease
Procedure in Detail: Rogelio Pelletier was correctly identified and placed supine on the operating table. After adequate induction of anesthesia the right leg was prepped and draped in the usual sterile fashion. A timeout procedure was performed with
the nursing and anesthesia staff confirming the patient's identity as well as the nature and laterality of the procedure. A transverse incision was made approximately 1 hands-breadth below the tibial tuberosity and carried medially and laterally to
the jail points on the calf. The incision was then turned along the long axis of the calf and carried down towards the ankle to create the posterior flap. Electrocautery was used on the subcutaneous tissue and muscle of the anterior and lateral
tissue. The anterior tibial artery and vein were identified and then ligated and divided between ties. The tibia and fibula were each circumferentially exposed. A periosteal elevator was used on each to elevate the periosteum more proximally. The
tibia was then divided with a saw. The anterior surface was beveled and smoothed with the saw and a rasp. The fibula was then divided more proximally than the tibia and all edges were smoothed with the assistance of a rasp. The amputation was then
completed along the posterior flap. The leg was then passed off to the back table to be sent to pathology. Hemostasis was achieved along the posterior flap. Once hemostasis was achieved the wound was irrigated with copious amounts of warm saline
solution. The wound was then closed in multiple layers. Sterile dressings were applied.
The patient tolerated the procedure well and was taken to the PACU in stable condition.
Attestation: I was present and responsible for the entire procedure
Signed:
Sampson Marrero III, MD
[facility] Surgery
[phone] (kxzt)
[2024-06-06 15:32] LABS: Glucose - Point of Care 176 mg/dl (70-99)
[2024-06-06] MEDS: DILAUDID 0.25 MG IV (15:47)
[2024-06-06 16:00] LABS: Hematocrit 32.3 % (39.0-52.0); Hemoglobin 10.9 g/dL (13.0-18.0); Mean Corp Hgb Conc. 33.7 g/dL (33.0-37.0); Mean Corpuscular Volume 91.8 fL (80.0-94.0); Mean Platelet Volume 10.4 fL (7.4-10.4); Platelet Count 202 10^3/uL (130-400); Red Blood Cell Count 3.52 10^6/uL (4.70-6.10); Red Cell Dist. Width 14.4 % (11.5-14.5); White Blood Cell Count 10.4 10^3/uL (4.8-10.8)
[2024-06-06 16:10] LABS: Blood Urea Nitrogen 27 mg/dl (9-20); Calcium 8.4 mg/dl (8.4-10.2); Carbon Dioxide 25 mmol/L (22-30); Chloride 103 mmol/L (98-107); Estimated Creatinine Clearance 60 ml/min; Glucose 172 mg/dl (70-99); Potassium 4.6 mmol/L (3.5-5.1); Sodium 137 mmol/L (135-145); eGFR > 60.00
[2024-06-06] MEDS: DILAUDID PCA 30 IV (16:21)
[2024-06-06] MEDS: NSS 1000 IV (16:30)
--- NOTE | 2024-06-06 17:04 | PTCARENOTE ---
Patient admitted from PACU post right lower extremity below knee amputation.The patient is alert and oriented.He rates his pain at a 4 out of 10.Popliteal pulse on the right is palpable.The patient is in his bed with the call saldaña in place.
[2024-06-06 17:34] LABS: Glucose - Point of Care 127 mg/dl (70-99)
[2024-06-06] MEDS: GLUCOTROL 10 MG PO (17:42)
[2024-06-06] MEDS: GLUCOPHAGE 1000 MG PO (17:42)
[2024-06-06] MEDS: FLOMAX 0.4 MG PO (17:42)
[2024-06-06] MEDS: NOVOLOG FLEXPEN-HIGH RESISTANCE 1 UNITS SC (17:43)
[2024-06-06] MEDS: LASIX 40 MG PO (17:52)
[2024-06-06] MEDS: HEPARIN 5000 UNITS SC (22:06)
[2024-06-06] MEDS: COLACE 100 MG PO (22:08)
[2024-06-06] MEDS: KCL 20 MEQ PO (22:08)
[2024-06-06 22:16] LABS: Glucose - Point of Care 202 mg/dl (70-99)
[2024-06-07] VITALS (8 sets, daily range): BP systolic 104–141; BP diastolic 42–71; PULSE 84–85; O2SAT 96; BMI 24.0
[2024-06-07 07:19] LABS: Hematocrit 30.8 % (39.0-52.0); Mean Corp Hgb Conc. 32.5 g/dL (33.0-37.0); Mean Corpuscular Hgb 30.5 pg (27.0-31.0); Mean Corpuscular Volume 93.9 fL (80.0-94.0); Mean Platelet Volume 10.2 fL (7.4-10.4); Platelet Count 192 10^3/uL (130-400); Red Blood Cell Count 3.28 10^6/uL (4.70-6.10); Red Cell Dist. Width 14.6 % (11.5-14.5); White Blood Cell Count 10.8 10^3/uL (4.8-10.8)
[2024-06-07 07:25] LABS: PT 14.6 Sec (11.4-14.6)
[2024-06-07 07:26] LABS: APTT 31.7 Sec (23.4-35.0)
[2024-06-07 07:50] LABS: Blood Urea Nitrogen 20 mg/dl (9-20); Calcium 8.2 mg/dl (8.4-10.2); Carbon Dioxide 25 mmol/L (22-30); Chloride 103 mmol/L (98-107); Estimated Creatinine Clearance 66 ml/min; Glucose 175 mg/dl (70-99); Sodium 135 mmol/L (135-145); eGFR > 60.00
[2024-06-07 08:08] LABS: Glucose - Point of Care 204 mg/dl (70-99)
--- NOTE | 2024-06-07 08:42 | W.PN.VS ---
Addendum entered and electronically signed by Sampson Marrero III, MD 06/07/24 18:41:
This patient was seen and examined in collaboration with ISAAK Sneed. I agree with the history and physical exam as well as the assessment and plan.
Signed:
Sampson Marrero III, MD
[facility] V[facility] Surgery
[phone] (mece)
Original Note:
Today's Communication / Plan
-
Patient seen and examined at bedside with Dr. Sampson Marrero III, below plan reviewed with attending.
Assessment/Plan
-
Assessment: 78-year-old male POD #1 right lower extremity BKA
Plan:
Will add adjunct pain relievers such as Tylenol and gabapentin to aid in nerve and intermittent pain breakthrough
Continue PLATING TECHNICIAN today will transition to oral meds tomorrow
Consultation to case management for disposition planning
Consultation to physiatry
Patient with elevated blood sugar around 200, given desire for optimized wound healing will consult diabetes nurse practitioner
Continue encourage incentive spirometry
Consultation to PT/OT
Subjective Data
-
Date of Service: June 07, 2024
Patient seen and examined at bedside, endorses intermittent breakthrough pain at right lower extremity BKA site, but otherwise managed with current PLATING TECHNICIAN regimen. Tolerating p.o. diet. Denies nausea, vomiting, fever, and chills.
Objective Data
-
Vital Signs
Temp Pulse Resp BP Pulse Ox
98.2 F 80 18 133/55 96
06/07/24 08:05 06/07/24 08:05 06/07/24 08:05 06/07/24 08:05 06/07/24 08:05
Intake and Output
06/06/24 06/07/24 06/08/24
06:59 06:59 06:59
Intake Total 1919 / 192
Output Total 1025 / 1025
Balance 895 / 895
Intake:
Oral fluids 1440 / 1440
IV fluids (Total) 480 / 480
Output:
Urine, Marrero 900 / 900
Urine, Voided 125 / 125
Other:
Number of approximated MODERATE 4
amounts of urine
Lab Results
06/07/24 06:58
06/07/24 06:58
Calcium 8.2 mg/dl (8.4-10.2) L 06/07/24 06:58
Physical Exam
-
No apparent distress, resting in bed comfortably
No tachycardia
No dyspnea on room air
ABD flat, nondistended
Right BKA dressing CDI
[2024-06-07 09:13] LABS: Glycohemoglobin (HgbA1c) 6.8 % (4.0-5.6)
--- NOTE | 2024-06-07 09:27 | CON.MR ---
Addendum entered and electronically signed by Jeff Vasquez MD 06/08/24 00:11:
A total of 60 minutes were spent with the patient preparing for the evaluation, obtaining history, performing examination and evaluation, counseling, data review, case management, care coordination, computerized mill mill recorder, and EMR documentation.
Original Note:
Documented by User: Etta Ortiz MD, Resident 06/07/24 18:41
Consultation
Consultation Request
Date/Time Consultation Requested: 06/07/24
Date/Time Consultation Performed: 06/07/24
Medical History
-
History of Present Illness:
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
prior endovascular interventions, osteomyelitis of right small toe (in 2018, MRSA). He has had continously non-healing wounds on the left silva and right lateral ankle with worsening LE pain. Patient was seen by vascular surgery when admitted here
in April 2024 and was offered inpatient BKA but opted for outpatient management/BKA. He is currently s/p right BKA. Patient was lethargic and not following commands at the time of my visit @3.00 pm probably due to [employer] SALES COUNTERPERSON. On later visit @5.30 pm, he
is much more alert and oriented after [facility]'ed. Is tolerating p.o. diet, complains of phantom pain. He is on tylenol q6h and gabapentin 100mg tid for pain relief.
DVT prophylaxis heparin subcu
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
endovascular interventions, osteomyelitis of right small toe (in 2018, MRSA)
Procedure History: cardiac, endovascular
Family History: Not pertinent
Social History:
Functional Level Premorbidly: Independent with all activities
Functional Level Currently: Dependent with lower extremity self-care and toileting, set up with grooming and eating, dependent with mobility.
Multilevel, 3 steps to enter, lives with spouse.
Tobacco: Former smoker
Alcohol: Denies
Drug use: Denies
Lives with:
24-hour assistance available: Yes
Number of floors: 2 ([facility] house)
# steps to enter: 3
Driving: Yes
Occupation: Retired
Allergies / Home Medications
Allergy/AdvReac Type Severity Reaction Status Date / Time
clopidogrel [From Plavix] Allergy ? Verified 06/01/24 12:45
nausea,tiredness
Iodinated Contrast Media Allergy nausea, Verified 06/01/24 12:45
vomiting
iodine [Iodine] Allergy nausea/vomi Verified 06/01/24 12:45
ting
lisinopril Allergy 'light Verified 06/01/24 12:45
sweats,
achiness,
fatigue'
piperacillin Allergy Rash Verified 06/01/24 12:45
pravastatin [Pravastatin] Allergy nausea,tire Verified 06/01/24 12:45
dness
simvastatin [Simvastatin] Allergy nausea/tire Verified 06/01/24 12:45
dness
tazobactam Allergy Rash Verified 06/01/24 12:45
�Medication �Instructions �Recorded �Confirmed �Last Taken �Type
metformin 1,000 mg tablet 1,000 mg PO BID Diabetes 01/27/17 06/06/24 06/04/24 13:00 History
potassium chloride 20 mEq 20 meq PO BID electrolyte repletion 01/27/17 06/06/24 06/05/24 13:00 History
tablet,extended
release(part/cryst) (Klor-Con M)
furosemide 40 mg tablet (Lasix) 80 mg PO DAILY Fluid 12/10/17 06/06/24 06/05/24 13:00 History
retention/Swelling
cyanocobalamin (vitamin B-12) 1,000 mcg PO DAILY Supplement 05/02/18 06/06/24 06/03/24 13:00 History
1,000 mcg tablet
warfarin 5 mg tablet (Jantoven) 5 mg PO MOTUWEFRSA Blood clot 05/02/18 06/06/24 05/28/24 13:00 History
prevention/tx
warfarin 5 mg tablet (Jantoven) 7.5 mg PO SUTH Blood clot 05/02/18 06/06/24 05/29/24 13:00 History
prevention/tx
losartan 25 mg tablet 25 mg PO DAILY Blood Pressure 06/01/19 06/06/24 06/05/24 13:00 History
cholecalciferol (vitamin D3) 25 25 mcg PO DAILY Supplement 06/08/20 06/06/24 06/03/24 13:00 History
mcg (1,000 unit) capsule (Vitamin
D3)
chromium picolinate 1,000 mcg 500 mcg PO DAILY Supplement 06/08/20 06/06/24 06/03/24 13:00 History
tablet
empagliflozin 25 mg tablet 25 mg PO DAILY Diabetes 09/25/22 06/06/24 06/04/24 13:00 History
(Jardiance)
furosemide 40 mg tablet 40 mg PO QPM Fluid 09/25/22 06/06/24 06/05/24 01:00 History
Retention/Swelling
tamsulosin 0.4 mg capsule (Flomax) 0.4 mg PO QPM Urinary Issue 09/25/22 06/06/24 06/05/24 01:00 History
aspirin 81 mg tablet,delayed 81 mg PO DAILY #30 tabs 09/30/22 06/06/24 06/04/24 13:00 Rx
release (Ecotrin Low Strength)
fenugreek seed extract 610 mg PO DAILY Supplement 07/16/23 06/06/24 06/04/24 01:00 History
cinnamon bark extract 1,200 mg PO DAILY Supplement 01/01/24 06/06/24 06/03/24 13:00 History
glipizide 10 mg tablet 10 mg PO BID Diabetes 01/01/24 06/06/24 06/05/24 13:00 History
metoprolol succinate 50 mg 50 mg PO DAILY Blood Pressure 01/01/24 06/06/24 06/05/24 13:00 History
tablet,extended release 24 hr
turmeric 1 tab PO DAILY Supplement 01/01/24 06/06/24 06/04/24 01:00 History
mupirocin 2 % topical ointment 1 applic topical DAILY PRN wound 06/01/24 06/06/24 05/30/24 13:00 History
acetaminophen 325 mg tablet 650 mg PO Q4H PRN pain 06/06/24 06/06/24 06/06/24 01:00 History
(Tylenol)
Review Of Systems
-
History Source: Patient
Constitutional: Denies Fever
Eye: Denies Blurry Vision
EENT: Reports No Symptoms
Respiratory: Reports No Symptoms
Cardiac: Reports No Symptoms
Abdomen/GI: Reports No Symptoms
: Reports Other (fraser catheter)
Musculoskeletal: Reports No Symptoms and Other (phantom pain)
Integumentary: Reports No Symptoms and Other
Neurological: Reports Numbness
Psych: Reports No Symptoms
Endocrine: Reports No Symptoms
Hematologic/Lymphatic: Reports No Symptoms
Immunology: Reports No Symptoms
Physical Exam
Active Medications
Generic Name Dose Route Start Last Admin
Trade Name Freq PRN Reason Stop Dose Admin
Acetaminophen 650 mg 06/07/24 14:00
Acetaminophen 325 Mg Tablet PO 07/05/24 13:59
R Q6HWA JUANA
Aspirin 81 mg 06/07/24 08:00
Aspirin 81 Mg (Enteric Coated) Tablet PO 07/05/24 07:59
DAILY JUANA
Bisacodyl 10 mg 06/06/24 13:26
Bisacodyl 10 Mg Rectal Suppository RECTAL 07/04/24 13:25
DAILYPRN PRN
constipation
Cholecalciferol 25 mcg 06/07/24 08:00
Cholecalciferol (Vitamin D3) 25 Mcg Tablet (1,000 Units) PO 07/05/24 07:59
DAILY JUANA
Cyanocobalamin 1,000 mcg 06/07/24 08:00
Cyanocobalamin 1,000 Mcg Tablet PO 07/05/24 07:59
DAILY JUANA
Dapagliflozin 10 mg 06/07/24 08:00
Dapagliflozin (Farxiga) 10 Mg Tablet PO 07/05/24 07:59
DAILY JUANA
Dextrose 12.5 grams 06/06/24 14:53
Dextrose 50% (0.5 Grams/Ml) 50 Ml Syringe IV 07/04/24 14:52
[id number] PRN
hypoglycemia
Protocol
Docusate Sodium 100 mg 06/06/24 20:00 06/06/24 22:08
Docusate Sodium 100 Mg Capsule PO 07/04/24 19:59 100 mg
BID JUANA Administration
Furosemide 80 mg 06/07/24 08:00
Furosemide 80 Mg Tablet PO 07/05/24 07:59
DAILY JUANA
Furosemide 40 mg 06/06/24 18:00 06/06/24 17:52
Furosemide 40 Mg Tablet PO 07/04/24 17:59 40 mg
QPM@1600 JUANA Administration
Gabapentin 100 mg 06/07/24 16:00
Gabapentin 100 Mg Capsule PO 07/05/24 15:59
TID JUANA
Glipizide 10 mg 06/06/24 18:00 06/06/24 17:42
Glipizide 10 Mg Regular Release Tablet PO 07/04/24 17:59 10 mg
BID@0800,1700 JUANA Administration
Glucagon 1 mg 06/06/24 14:53
Glucagon 1 Mg Vial IM 07/04/24 14:52
PRN PRN
hypoglycemia
Protocol
Heparin Sodium 5,000 units 06/06/24 20:00 06/06/24 22:06
Heparin 5,000 Units/Ml 1 Ml Vial SC 07/04/24 19:59 5,000 units
Q12 JAUNA Administration
Hydromorphone HCl 0.5 mg 06/06/24 12:02
Hydromorphone 0.5 Mg/0.5 Ml Syringe IV 06/07/24 12:02
PACU-Q5MPRN PRN
severe pain
Hydromorphone HCl 0.25 mg 06/06/24 12:02 06/06/24 15:47
Hydromorphone 0.25 Mg/0.5 Ml Syringe IV 06/07/24 12:02 0.25 mg
PACU-Q5MPRN PRN Administration
moderate pain
Parenteral Electrolytes 1,000 mls @ 100 mls/hr 06/06/24 12:15
Normosol-R/Plasmalyte-A IV 06/07/24 12:02
PER PROTOCOL JUANA
Sodium Chloride 1,000 mls @ 40 mls/hr 06/06/24 14:53 06/06/24 16:30
Nss IV 1,000 mls
.Q24H PRN Administration
[employer]S SALES COUNTERPERSON Protocol- IVF discontinued
Hydromorphone HCl 30 mg in 30 mls @ 0 mls/hr 06/06/24 15:00 06/06/24 16:21
Dilaudid Safety Compliance Specialist IV 30 mls
PER PROTOCOL JUANA Administration
Protocol
Per Protocol
Insulin Aspart 0 units 06/06/24 16:30 06/06/24 17:43
Insulin Aspart High Resistance 300 Units/3 Ml Pen.Injctr SC 07/04/24 16:29 1 units
AC JUANA Administration
Protocol
Losartan Potassium 25 mg 06/07/24 08:00
Losartan 25 Mg Tablet PO 07/05/24 07:59
DAILY JUANA
Meperidine HCl 12.5 mg 06/06/24 12:02
Meperidine 25 Mg/Ml Injection IV 06/07/24 12:02
PACU-Q5MPRN PRN
shivers
Metformin HCl 1,000 mg 06/06/24 18:00 06/06/24 17:42
Metformin 1000 Mg Regular Release Tablet PO 07/04/24 17:59 1,000 mg
BID@0800,1700 JUANA Administration
Metoprolol Succinate 50 mg 06/07/24 08:00
Metoprolol 50 Mg Extended Release Tablet PO 07/05/24 07:59
DAILY JUANA
Naloxone HCl 0.04 mg 06/06/24 14:53
Naloxone (0.4 Mg/Ml) 1 Ml Injection IV 07/04/24 14:52
Q2MPRN PRN
RR </= 10/min / Pasero scale=4
Ondansetron HCl 4 mg 06/06/24 12:02
Ondansetron 4 Mg/2 Ml Vial IV 06/07/24 12:02
PACU-ONCEPRN PRN
nausea/vomiting
Potassium Chloride 20 meq 06/06/24 20:00 06/06/24 22:08
Potassium Chloride 20 Meq Extended Release Tablet PO 07/04/24 19:59 20 meq
BID JUANA Administration
Prochlorperazine Edisylate 5 mg 06/06/24 12:02
Prochlorperazine 10 Mg/2 Ml Vial IV 06/07/24 12:02
PACU-ONCEPRN PRN
nausea/vomiting
Sodium Chloride 0.9 ml 06/06/24 14:53
Sodium Chloride 0.9% (Preservative Free) 10 Ml Vial IV 07/04/24 14:52
Q2MPRN PRN
naloxone dilution
Sodium Chloride 0 flush 06/06/24 16:00
Sodium Chloride 0.9% (Flush) Syringe IV 07/04/24 15:59
PER PROTOCOL JUANA
Tamsulosin HCl 0.4 mg 06/06/24 18:00 06/06/24 17:42
Tamsulosin 0.4 Mg Capsule PO 07/04/24 17:59 0.4 mg
QPM JUANA Administration
Vital Signs
Temp Pulse Resp BP Pulse Ox
98.2 F 80 18 133/55 96
06/07/24 08:05 06/07/24 08:05 06/07/24 08:05 06/07/24 08:05 06/07/24 08:05
Height 5 ft 11 in
Actual Weight 78.018 kg
Body Mass Index (BMI) 24.0
Physical Exam
Physical Exam:
General Appearance/Observation: Well-developed, well-nourished individual in pain but no distress.
Pain/Comfort Assessment: RLE phantom pain
Mood/Affect: Appropriate
Integumentary/Operative Site:
Pressure Ulcer: absent
Other Type of Wound: purulent wound on LLE (anterior tibial)
Eyes: Conjunctiva/Lids: normal Pupils: pupils small equal round and reactive to light and Accommodation
Ears/Nose/Throat: oral mucosa moist, throat clear. Lips/Teeth/Gums: normal
Neck: No muscle spasm or tenderness
Cardiovascular: Heart: regular, no murmur
Pulses: femoral pulses full bilaterally, dorsalis pedis absent on left foot
Respiratory: Respiratory Effort/Chest Expansion: normal Auscultation: Clear to auscultation bilaterally
Gastrointestinal: abdomen not tender, no distension, normal abdominal bowel sounds
Genitourinary: Fraser in place
Rectal Exam: Deferred
Extremities: Edema: None Cyanosis: None Trophic changes: below knee on LLE
Neurology Exam:
Orientation: Alert, Oriented to self, Time, Place
Memory: Intact immediately and at 3 minutes
Higher cortical function
Speech: Intact
Repetition: Intact
Comprehension: Intact
Two step command: Intact
Naming: Intact
Cranial Nerves:
CNII: Pupillary light reflex: Intact Visual Field: Intact
CN III, IV, : Extraocular muscles: Intact
CN V: Facial Sensation at Forehead: Intact , Maxilla: Intact, Mandible: Intact
CN VII: Facial movement: Symmetric
CN VIII: Hearing: Normal
CN IX/X: Speech & swallow: Normal, Position of Uvula: Midline
CN XI: Shoulder shrug: Symmetric
CN XII: Tongue protrusion: Midline
Sensory:
Light touch: Intact in bilateral upper extremities, no touch sensation below knee on LLE
Reflexes:
Biceps: 2+ bilaterally
Brachioradialis: 2+ bilaterally
Triceps: 2+ bilaterally
Patellar: 2+ left
Achilles: 2+ left
Babinski: Neutral left
Clonus: None
Kymberly: Negative bilaterally
Cerebellar: Dysmetria/Ataxia: None
Musculoskeletal:
Motor: (Manual muscle scale 0-5)
Muscle SA EF WE EE FF FA HF KE DF EHL PF
Right 5 5 5 5 5 5 3
Left 5 5 5 5 5 5 4+ 4+ 3 3
Tone: Normal in all extremities
Range of Motion: Passively within normal limits in all extremities
Lab Results
06/07/24 06:58
06/07/24 06:58
WBC 10.8 10^3/uL (4.8-10.8) 06/07/24 06:58
Hgb 10.0 g/dL (13.0-18.0) L 06/07/24 06:58
Hct 30.8 % (39.0-52.0) L 06/07/24 06:58
MCV 93.9 fL (80.0-94.0) 06/07/24 06:58
Plt Count 192 10^3/uL (130-400) 06/07/24 06:58
PT 14.6 Sec (11.4-14.6) 06/07/24 06:58
INR 1.10 06/07/24 06:58
Sodium 135 mmol/L (135-145) 06/07/24 06:58
Potassium 5.0 mmol/L (3.5-5.1) 06/07/24 06:58
Chloride 103 mmol/L (98-107) 06/07/24 06:58
Carbon Dioxide 25 mmol/L (22-30) 06/07/24 06:58
BUN 20 mg/dl (9-20) 06/07/24 06:58
Creatinine 1.0 mg/dL (0.7-1.3) 06/07/24 06:58
eGFR > 60.00 06/07/24 06:58
Glucose 175 mg/dl (70-99) H 06/07/24 06:58
Hemoglobin A1c 6.8 % (4.0-5.6) H 06/07/24 06:58
Calcium 8.2 mg/dl (8.4-10.2) L 06/07/24 06:58
Diagnostic Results
As per HPI.
Assessment / Plan
Plan
PM&R PT/OT to increase independence with ADLs, improve balance, coordination, endurance, strength, mobility, community reintegration, decreased burden of care on others and family education.
Peripheral polyneuropathy: Patient at high risk of falling with significant neuropathy.
Status post right BKA: Monitor incision, edema control with [place] wrap, pain control, desensitization, Phantom limb pain education, maintain full ROM at hip and knee. Increase gabapentin to 300mg TID and up titrate dose as needed (up to 800mg TID as
kidney function is normal).
HTN: continue medications, monitor closely
HLD: continue statin
Coronary artery disease: Aspirin, statin, beta-valerie
Atrial fibrillation: Continue rate control medications.
CHF: beta valerie, monitor fluid status
DM II: Accu-Cheks, sliding scale insulin, metformin.
Pressure ulcers: Vitamin C, zinc, multivitamin. Weight shifts in wheelchair and bed. Roho cushion. Pressure-relief boots. Lotrimin to fungal rash over buttocks and inguinal region.
Anemia: Likely multifactorial. Continue to monitor.
Psych: Monitor mood.
Skin: monitor for pressure sores/rashes/lesions.
Pain: acetaminophen or oxycodone as needed. Increase gabapentin as above.
Bowel: Colace and Senna, PRN bisacodyl.
Bladder: Time void, PVRs, PRN straight cath.
DVT Prophylaxis: heparin subcu
Pulmonary: Incentive spirometry
Safety: Continue to reinforce assistance with all transfers.
Code Status: Full code
Dispo (date/plan/equipment needs): Acute rehab. Social history reviewed.
Functional and Medical Goals: Modified Independent with ADL�s, ambulation, transfers
Summary
-
Summary of recommendations:
- Discharge Destination: Acute rehab
Thank you for allowing me to care for your patient. Please contact me with any questions or concerns.
Comments
-
This note was dictated using a voice recognition system. Please excuse any typographical errors from electro optical engineer. If you believe there are any discrepancies, please notify our office.

Documented by User: Jeff Vasquez MD 06/08/24 00:10
Consultation
Consultation Request
Requesting Provider: Dr. Sampson Fraser
Performing Provider: Dr. Vasquez
Reason for Consultation: Below the knee amputation
Medical History
-
History of Present Illness:
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
prior endovascular interventions, osteomyelitis of right small toe (in 2018, MRSA). He has had continously non-healing wounds on the left silva and right lateral ankle with worsening LE pain. Patient was seen by vascular surgery when admitted here
in April 2024 and was offered inpatient BKA but opted for outpatient management/BKA. He is currently s/p right BKA. Patient was lethargic and not following commands at the time of my visit @3.00 pm probably due to [employer] SALES COUNTERPERSON. On later visit @5.30 pm, he
is much more alert and oriented after PA dc'ed. Is tolerating p.o. diet, complains of phantom pain. He is on tylenol q6h and gabapentin 100mg tid for pain relief.
DVT prophylaxis heparin subcu
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
endovascular interventions, osteomyelitis of right small toe (in 2018, MRSA)
Procedure History: cardiac, endovascular
Family History: Not pertinent
Social History:
Functional Level Premorbidly: Independent with all activities
Functional Level Currently: Dependent with lower extremity self-care and toileting, set up with grooming and eating, dependent with mobility.
Multilevel, 3 steps to enter, lives with spouse.
Tobacco: Former smoker
Alcohol: Denies
Drug use: Denies
Lives with:
24-hour assistance available: Yes
Number of floors: 2 ([facility])
# steps to enter: 3
Driving: Yes
Occupation: Retired
Physical Exam
Physical Exam
Physical Exam:
General Appearance/Observation: Well-developed, well-nourished individual in pain but no distress.
Pain/Comfort Assessment: RLE phantom pain and postsurgical pain
Mood/Affect: Appropriate
Integumentary/Operative Site: Left silva with slough wound on LLE (anterior tibial), wound dry, no erythema
Eyes: Conjunctiva/Lids: normal Pupils: pupils small equal round and reactive to light and Accommodation
Ears/Nose/Throat: oral mucosa moist, throat clear. Lips/Teeth/Gums: normal
Cardiovascular: Heart: regular, no murmur
Pulses: femoral pulses full bilaterally, dorsalis pedis absent on left foot
Respiratory: Respiratory Effort/Chest Expansion: normal Auscultation: Clear to auscultation bilaterally
Gastrointestinal: abdomen not tender, no distension, normal abdominal bowel sounds
Genitourinary: Fraser in place with clear yellow urine
Rectal Exam: Deferred
Extremities: Edema: Right residual limb edema with [place] wrap cyanosis: None Trophic changes: below knee on LLE
Neurology Exam:
Orientation: Mild lethargic, Oriented to self, Time, Place
Memory: Impaired
Speech: Intact
Repetition: Intact
Comprehension: Intact
Two step command: Intact
Naming: Intact
Cranial Nerves:
CNII: Pupillary light reflex: Intact Visual Field: Intact
CN III, IV, : Extraocular muscles: Intact
CN V: Facial Sensation at Forehead: Intact , Maxilla: Intact, Mandible: Intact
CN VII: Facial movement: Symmetric
CN VIII: Hearing: Normal
CN IX/X: Speech & swallow: Normal, Position of Uvula: Midline
CN XI: Shoulder shrug: Symmetric
CN XII: Tongue protrusion: Midline
Sensory:
Light touch: Intact in bilateral upper extremities, no touch sensation below knee on LLE
Reflexes:
Biceps: 2+ bilaterally
Brachioradialis: 2+ bilaterally
Triceps: 2+ bilaterally
Patellar: 2+ left
Achilles: 2+ left
Babinski: Neutral left
Clonus: None
Kymberly: Negative bilaterally
Cerebellar: Dysmetria/Ataxia: None
Musculoskeletal: Motor: (Manual muscle scale 0-5)
Muscle SA EF WE EE FF FA HF KE DF EHL PF
Right 5 5 5 5 5 5 3 NT - - -
Left 5 5 5 5 5 5 4+ 4+ 3 - 3
Tone: Normal in all extremities
Range of Motion: Passively within functional limits in all extremities
Assessment / Plan
Plan
Assessment:
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
prior endovascular interventions, osteomyelitis of right small toe (in 2018, MRSA). s/p right BKA/ with some sedation from pain medications that is improving after [employer]S SALES COUNTERPERSON stopped.
Plan:
PM&R PT/OT to increase independence with ADLs, improve balance, coordination, endurance, strength, mobility, community reintegration, decreased burden of care on others and family education.
Peripheral polyneuropathy: Patient at high risk of falling with significant neuropathy.
Status post right BKA: Monitor incision, edema control with [place] wrap, pain control, desensitization, Phantom limb pain education, maintain full ROM at hip and knee. Increase gabapentin to 300mg TID and up titrate dose as needed (up to 800mg TID as
kidney function is normal).
HTN: Lasix 80 mg daily and 40 mg before dinner, losartan 25 mg, metoprolol 50 mg daily. Monitor closely
HLD: statin
Coronary artery disease: Aspirin, statin, beta-valerie
Atrial fibrillation: Continue rate control medications, not on anticoagulation currently..
CHF: beta vaelrie, monitor fluid status
DM II: Accu-Cheks, sliding scale insulin, metformin.
Anemia: Likely multifactorial. Continue to monitor.
Psych: Monitor mood.
Skin: monitor for pressure sores/rashes/lesions.
Pain: acetaminophen or oxycodone as needed. Increase gabapentin as above.
Bowel: Colace and Senna, PRN bisacodyl.
Bladder: Time void, PVRs, PRN straight cath.
DVT Prophylaxis: heparin subcu
Pulmonary: Incentive spirometry
Safety: Continue to reinforce assistance with all transfers.
Code Status: Full code
Dispo (date/plan/equipment needs): Acute rehab. Social history reviewed.
Functional and Medical Goals: Modified Independent with ADL�s, ambulation, transfers
Attending Statement:
I saw and examined the patient 06/07/2024. Reviewed care plan with patient, and resident physician Dr. Etta Cornejo. I agree with the above subjective and physical exam, and plan as documented by by her with adjustments made as necessary.I saw and
evaluated the patient. 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
with decrease in in medications and taken off of the [employer]S SALES COUNTERPERSON pump.
[2024-06-07] MEDS: NOVOLOG FLEXPEN-HIGH RESISTANCE 4 UNITS SC ×2 (09:50→18:55)
[2024-06-07] MEDS: FARXIGA 10 MG PO (09:51)
[2024-06-07] MEDS: GLUCOPHAGE 1000 MG PO ×2 (09:51→18:56)
[2024-06-07] MEDS: LASIX 80 MG PO (09:51)
[2024-06-07] MEDS: ASPIR LOW (ENTERIC COATED) 81 MG PO (09:51)
[2024-06-07] MEDS: VITAMIN B-12 1000 MCG PO (09:52)
[2024-06-07] MEDS: TOPROL XL 50 MG PO (09:52)
[2024-06-07] MEDS: GLUCOTROL 10 MG PO ×2 (09:52→18:56)
[2024-06-07] MEDS: VITAMIN D3 (cholecalciferol) 25 MCG PO (09:52)
[2024-06-07] MEDS: COZAAR 25 MG PO (09:52)
[2024-06-07] MEDS: KCL 20 MEQ PO ×2 (09:55→20:50)
[2024-06-07] MEDS: COLACE 100 MG PO ×2 (09:56→20:50)
[2024-06-07] MEDS: HEPARIN 5000 UNITS SC ×2 (09:56→20:50)
[2024-06-07] MEDS: NSS 1000 IV (10:07)
--- NOTE | 2024-06-07 10:30 | CM ---
Reviewed the chart notes and spoke with the patient at the bedside. Patient resides with spouse in a two story home with three steps to enter. The patient has a rolling walker, cane, shower chair, and shower rails in home. The patient reports
having DH VN in past, but no SNF. [facility] CM continues to be available to patient/family and is monitoring medical plan for needs at discharge.
Plan: Discharge plans will depend on the patient's progress. PMR consult pending.
--- NOTE | 2024-06-07 12:01 | PN.DE.MGMTRT ---
Insulin Management
- -
06/07/2024 Diabetes Management Consult
Patient admitted 06/06 for elective BKA R leg. PMH PAD, HLD, s/p AVR, diabetes, afib, peripheral neuropathy asthma. A1C on admission 7.4%. Prior to admission was taking glipizide 10 mg BID, Jardiance 25 mg daily, 1000 mg metformin BID.
Patient is awake alert and oriented resting in bed eating breakfast at the time of my visit, able to discuss diabetes care. Patient states he has had diabetes since 1996, he sees an roller operator for diabetes care.
06/06 glucose range 202 to 287, fasting 06/07 204. Patient has been receiving metformin 1000 mg BID and glipizide 10 mg BID. Will restart SGLT2, Farxiga (home med is Jardiance 25 mg) 10 mg daily, first dose now. Will continue hi corrective insulin.
Will follow for further needed adjustments.
Diabetes History
- -
Type of Diabetes: 2
Pre-Admission Diabetes Regimen
06/06/24 06/07/24
15:32 06:58
Creatinine 1.1 1.0
Lab Results
Hemoglobin A1c 6.8 % (4.0-5.6) H 06/07/24 06:58
Insulin Pump Settings
IP Diabetes Regimen
06/06/24 06/06/24 06/06/24
15:30 15:32 17:33
Glucose 172 H
POC Glucose 176 H 127 H
06/06/24 06/07/24 06/07/24
22:15 06:58 08:07
Glucose 175 H
POC Glucose 202 H 204 H
Meal type: Lunch
Meal type: Breakfast
Amount consumed: 60%
Amount consumed: 0
Patient Education
[2024-06-07 12:30] LABS: Glucose - Point of Care 183 mg/dl (70-99)
[2024-06-07] MEDS: NOVOLOG FLEXPEN-HIGH RESISTANCE 2 UNITS SC (15:33)
[2024-06-07] MEDS: TYLENOL 650 MG PO ×2 (15:38→20:51)
[2024-06-07] MEDS: NEURONTIN 100 MG PO ×2 (15:38→20:53)
[2024-06-07] MEDS: LASIX 40 MG PO (16:55)
[2024-06-07] MEDS: DILAUDID 2 MG PO (16:55)
[2024-06-07 17:49] LABS: Glucose - Point of Care 207 mg/dl (70-99)
[2024-06-07] MEDS: FLOMAX 0.4 MG PO (18:56)
[2024-06-07 21:47] LABS: Glucose - Point of Care 192 mg/dl (70-99)
[2024-06-08] MEDS: TYLENOL 650 MG PO ×4 (02:02→21:00)
[2024-06-08] MEDS: DILAUDID 0.5 MG IV ×2 (02:22→08:08)
[2024-06-08 03:20] VITALS: BP 107/58
[2024-06-08] MEDS: DILAUDID 2 MG PO ×2 (03:41→13:54)
[2024-06-08 06:00] VITALS: BMI 23.2
[2024-06-08 07:08] LABS: Hematocrit 28.3 % (39.0-52.0); Hemoglobin 9.5 g/dL (13.0-18.0); Mean Corp Hgb Conc. 33.6 g/dL (33.0-37.0); Mean Corpuscular Hgb 31.1 pg (27.0-31.0); Mean Corpuscular Volume 92.8 fL (80.0-94.0); Mean Platelet Volume 10.5 fL (7.4-10.4); Platelet Count 186 10^3/uL (130-400); Red Blood Cell Count 3.05 10^6/uL (4.70-6.10); Red Cell Dist. Width 14.6 % (11.5-14.5); White Blood Cell Count 12.2 10^3/uL (4.8-10.8)
[2024-06-08 07:50] VITALS: BP 122/53
--- NOTE | 2024-06-08 07:50 | PN.DE.MGMTRT ---
Insulin Management
- -
06/08/2024 Diabetes Management Consult Follow up
Patient admitted 06/06 for elective BKA R leg. PMH PAD, HLD, s/p AVR, diabetes, afib, peripheral neuropathy asthma. A1C on admission 7.4%. Prior to admission was taking glipizide 10 mg BID, Jardiance 25 mg daily, 1000 mg metformin BID.
Patient is awake alert and oriented resting in bed at the time of my visit, able to discuss diabetes care. Patient states he has had diabetes since 1996, he sees an puppy trainer in the city, not sure of the name, for diabetes care.
06/07 glucose range 175 to 207, fasting 06/08 73. Patient has been receiving metformin 1000 mg BID and glipizide 10 mg BID, Farxiga 10 mg daily (home med is Jardiance 25 mg) restarted 06/07, will continue same doses. Will reduce hi corrective to low
corrective insulin AC
Will follow for further needed adjustments.
Diabetes History
- -
Type of Diabetes: 2
Pre-Admission Diabetes Regimen
06/07/24
06:58
Creatinine 1.0
Lab Results
Hemoglobin A1c 6.8 % (4.0-5.6) H 06/07/24 06:58
Insulin Pump Settings
IP Diabetes Regimen
06/07/24 06/07/24 06/07/24
06:58 08:07 12:29
Glucose 175 H
POC Glucose 204 H 183 H
06/07/24 06/07/24
17:48 21:45
Glucose
POC Glucose 207 H 192 H
Meal type: Lunch
Meal type: Breakfast
Amount consumed: 15%
Amount consumed: 80%
Patient Education
[2024-06-08 07:51] LABS: Glucose - Point of Care 73 mg/dl (70-99)
[2024-06-08 08:05] LABS: Blood Urea Nitrogen 26 mg/dl (9-20); Calcium 8.4 mg/dl (8.4-10.2); Carbon Dioxide 26 mmol/L (22-30); Chloride 102 mmol/L (98-107); Estimated Creatinine Clearance 55 ml/min; Glucose 49 mg/dl (70-99); Potassium 4.2 mmol/L (3.5-5.1); Sodium 136 mmol/L (135-145); eGFR > 60.00
[2024-06-08] MEDS: VITAMIN B-12 1000 MCG PO (08:09)
[2024-06-08] MEDS: ASPIR LOW (ENTERIC COATED) 81 MG PO (08:09)
[2024-06-08] MEDS: NEURONTIN 100 MG PO (08:09)
[2024-06-08] MEDS: GLUCOPHAGE 1000 MG PO ×2 (08:09→17:31)
[2024-06-08] MEDS: COZAAR 25 MG PO (08:09)
[2024-06-08] MEDS: FARXIGA 10 MG PO (08:09)
[2024-06-08] MEDS: GLUCOTROL 10 MG PO ×2 (08:09→17:31)
[2024-06-08] MEDS: LASIX 80 MG PO (08:09)
[2024-06-08] MEDS: VITAMIN D3 (cholecalciferol) 25 MCG PO (08:09)
[2024-06-08] MEDS: KCL 20 MEQ PO ×2 (08:09→21:01)
[2024-06-08] MEDS: TOPROL XL 50 MG PO (08:09)
[2024-06-08] MEDS: COLACE 100 MG PO ×2 (08:10→21:01)
[2024-06-08] MEDS: HEPARIN 5000 UNITS SC ×2 (08:10→21:02)
[2024-06-08] MEDS: NOVOLOG FLEXPEN-HIGH RESISTANCE SC (08:23)
--- NOTE | 2024-06-08 08:57 | CM ---
Reviewed the chart notes. PMR recommending Acute Rehab. Referral sent to [facility]. CM continues to be available to patient/family and is monitoring medical plan for needs at discharge.
Plan: Discharge to Acute Rehab when medically stable and bed secured. No precert required.
--- NOTE | 2024-06-08 10:46 | PN.CDI ---
CDI
- -
CDI:
Physician Documentation Request
Admit Date: 06/06/24 10:34
Dear Lita MULLIGAN,
Patient admitted with [place] artery atherosclerosis, right lower extremity with nonhealing wounds -gangrene and ulceration s/p
right lower extremity amputation, below the knee.
Hgb documented below:
Laboratory Tests
06/06/24 06/06/24 06/07/24
10:46 15:32 06:58
Hgb 12.3 L 10.9 L 10.0 L
06/08/24
06:31
Hgb 9.5 L
Based on the above, please clarify in your progress note the likely diagnosis you are evaluating, monitoring and/or treating?
Acute blood loss anemia
Insignificant abnormal lab findings
Other
Use of terms such as suspected, likely, concern for, or probable (associated with a specific diagnosis that is being evaluated, monitored, or treated as if it exists) are acceptable and can be coded in the inpatient setting, when documented at the
time of discharge.
Thank you,
Alexa AMATO,RN,CCDS
CDI Specialist
Available via [facility] text
Please use your independent medical judgment in providing your response.
--- NOTE | 2024-06-08 10:52 | W.PN.VS ---
Addendum entered and electronically signed by Dylan Palomo MD 06/08/24 11:25:
Seen and examined with DINO Hernandez. Agree with findings and plan as discussed and noted below. Right BKA dressing removed. Staple line clean dry and intact. Soft, no hematoma. Skin flaps pink/warm/viable. Plan/as discussed and noted below.
Original Note:
Today's Communication / Plan
-
Seen and assessed with Dr Palomo
Assessment/Plan
-
Assessment: 78-year-old male POD #2 right lower extremity BKA
Plan:
Gabapentin increased, once on orals only can DC
CM for disposition planning, [facility]
Restart Coumadin today
Continue encourage IS
PT/OT
Subjective Data
-
Date of Service: June 08, 2024
Pt seen at bedside this am with Dr Palomo. Pt currently sleeping comfortably in bed, was recently medicated for pain. No events overnight.
Objective Data
-
Vital Signs
Temp Pulse Resp BP Pulse Ox
97.4 F 72 16 122/53 96
06/08/24 07:50 06/08/24 08:09 06/08/24 07:50 06/08/24 08:09 06/08/24 07:50
Intake and Output
06/07/24 06/08/24 06/09/24
06:59 06:59 06:59
Intake Total 1920 / 1920 1680 / 1680
Output Total 1025 / 1025 2300 / 2300
Balance 895 / 895 -620 / -620
Intake:
Oral fluids 1440 / 1440 1680 / 1680
IV fluids (Total) 480 / 480
Output:
Urine, Marrero 900 / 900 2300 / 2300
Urine, Voided 125 / 125
Other:
Number of approximated MODERATE 4
amounts of urine
Lab Results
06/08/24 06:31
06/08/24 06:31
Calcium 8.4 mg/dl (8.4-10.2) 06/08/24 06:31
Physical Exam
-
No apparent distress, resting in bed comfortably
No tachycardia
No dyspnea on room air
ABD flat, nondistended
Right BKA dressing removed. Stables intact, skin well aproximated, no drainage or swelling noted
--- NOTE | 2024-06-08 11:03 | PN.CDI ---
CDI
- -
CDI:
Physician Documentation Request
Admit Date: 06/06/24 10:34
Dear Carole MULLIGAN,
Patient admitted with [place] artery atherosclerosis, right lower extremity with nonhealing wounds -gangrene and ulceration s/p
right lower extremity amputation, below the knee.
Hgb documented below:
Laboratory Tests
06/06/24 06/06/24 06/07/24
10:46 15:32 06:58
Hgb 12.3 L 10.9 L 10.0 L
06/08/24
06:31
Hgb 9.5 L
Based on the above, please clarify in your progress note the likely diagnosis you are evaluating, monitoring and/or treating?
Acute blood loss anemia
Insignificant abnormal lab findings
Other
Use of terms such as suspected, likely, concern for, or probable (associated with a specific diagnosis that is being evaluated, monitored, or treated as if it exists) are acceptable and can be coded in the inpatient setting, when documented at the
time of discharge.
Thank you,
Alexa AMATO,RN,CCDS
CDI Specialist
Available via [place] text
Please use your independent medical judgment in providing your response.
Please use your independent medical judgment in providing your response.
[2024-06-08 11:30] VITALS: BP 102/46
[2024-06-08 11:40] VITALS: BP 110/55; PULSE 71
[2024-06-08 11:53] LABS: Glucose - Point of Care 168 mg/dl (70-99)
[2024-06-08] MEDS: NOVOLOG FLEXPEN-LOW RESISTANCE 1 UNITS SC (12:50)
--- NOTE | 2024-06-08 14:39 | WOUNDNOTE ---
LEFT ANTERIOR LOWER LEG
--- NOTE | 2024-06-08 14:39 | WOUNDNOTE ---
[facility] RN note: Patient admitted with scheduled right BKA
See H&P for complete history.
PMH: Diabetes, CHF, a-fib, aortic stenosis, HTN, multiple surgeries
Wound Location and type/assessment: Patient admitted with left LE full thickness wound with bone exposed. Patient reports having this wound for over a year and follows with Dr. Ortiz. No drainage, redness or odor noted. Right BKA dressing intact,
patient is followed by vascular for this surgical wound. Sacrum and left heel intact. Patient can turn in bed with assistance.
Appetite: Good
Pressure redistribution devices in place: Static air overlay added to bed during assessment. Left heel off-loaded with pillow under calf.
Plan: Patient would like to continue with Dr. Ortiz's plan of care which includes applying Betadine to open wound daily. Local wound care provided as ordered. Will confirm orders with hospitalist and update nurse. Updated care plan and will
follow as needed.
Note to case management of equipment requested for discharge:
Recommend follow up at wound care center upon discharge.
[2024-06-08 15:30] VITALS: BP 102/50
[2024-06-08] MEDS: NEURONTIN 200 MG PO ×2 (16:21→21:01)
[2024-06-08] MEDS: LASIX 40 MG PO (16:22)
--- NOTE | 2024-06-08 16:30 | W.PN.UPDATE ---
Update Note
Progress Note Update
CDI:
Physician Documentation Request
Admit Date: 06/06/24 10:34
Patient admitted with [place] artery atherosclerosis, right lower extremity with nonhealing wounds -gangrene and ulceration s/p
right lower extremity amputation, below the knee.
Hgb documented below:
Laboratory Tests
06/06/24 06/06/24 06/07/24
10:46 15:32 06:58
Hgb 12.3 L 10.9 L 10.0 L
06/08/24
06:31
Hgb 9.5 L
Based on the above, please clarify in your progress note the likely diagnosis you are evaluating, monitoring and/or treating?
Insignificant abnormal lab findings
[2024-06-08 17:17] LABS: Glucose - Point of Care 121 mg/dl (70-99)
[2024-06-08] MEDS: NOVOLOG FLEXPEN-LOW RESISTANCE SC (17:30)
[2024-06-08] MEDS: FLOMAX 0.4 MG PO (17:31)
[2024-06-08] MEDS: COUMADIN 5 MG PO (17:36)
[2024-06-08] MEDS: ROXICODONE 10 MG PO (21:27)
[2024-06-08 22:01] LABS: Glucose - Point of Care 202 mg/dl (70-99)
[2024-06-08 23:00] VITALS: BP 123/56
[2024-06-09] MEDS: TYLENOL PO (02:55)
[2024-06-09] MEDS: COMPAZINE 5 MG IV (05:30)
[2024-06-09 06:00] VITALS: BMI 23.7
[2024-06-09 07:15] VITALS: BP 126/65
[2024-06-09 07:17] LABS: Glucose - Point of Care 124 mg/dl (70-99)
[2024-06-09 07:39] LABS: Hematocrit 28.4 % (39.0-52.0); Hemoglobin 9.4 g/dL (13.0-18.0); Mean Corp Hgb Conc. 33.1 g/dL (33.0-37.0); Mean Corpuscular Hgb 30.6 pg (27.0-31.0); Mean Corpuscular Volume 92.5 fL (80.0-94.0); Mean Platelet Volume 10.7 fL (7.4-10.4); Platelet Count 197 10^3/uL (130-400); Red Blood Cell Count 3.07 10^6/uL (4.70-6.10); Red Cell Dist. Width 14.4 % (11.5-14.5); White Blood Cell Count 11.6 10^3/uL (4.8-10.8)
[2024-06-09 07:45] LABS: INR 1.16; PT 15.3 Sec (11.4-14.6)
--- NOTE | 2024-06-09 07:52 | W.PN.VS ---
Addendum entered and electronically signed by Dylan Palomo MD 06/09/24 15:28:
Seen and examined earlier this a.m. with DINO Hernandez. This is a late entry. Agree with findings and plan as noted and discussed below.
Original Note:
Today's Communication / Plan
-
Seen and assessed with Dr. Palomo
Assessment/Plan
-
Assessment: 78-year-old male POD #3 right lower extremity BKA
Plan:
Patient okay for discharge to [place] when bed available
Subjective Data
-
Date of Service: June 09, 2024
Patient seen bedside same Dr. Palomo. Patient resting comfortably in bed. No events overnight.
Objective Data
-
Vital Signs
Temp Pulse Resp BP Pulse Ox
99.6 F 71 14 123/56 95
06/08/24 23:00 06/08/24 23:00 06/08/24 23:00 06/08/24 23:00 06/08/24 23:00
Intake and Output
06/08/24 06/09/24 06/10/24
06:59 06:59 06:59
Intake Total 1680 / 1680 1740 / 1740
Output Total 2300 / 2300 2049
Balance -620 / -620 -310 / -310
Intake:
Oral fluids 1680 / 1680 1740 / 1740
Output:
Urine, Marrero 0 / 0
Urine, Voided 2049
Lab Results
06/09/24 06:12
Calcium 8.4 mg/dl (8.4-10.2) 06/08/24 06:31
Physical Exam
-
No apparent distress, resting in bed comfortably
No tachycardia
No dyspnea on room air
ABD flat, nondistended
Right BKA [place] bandage clean dry and intact.
[2024-06-09 08:13] LABS: Blood Urea Nitrogen 32 mg/dl (9-20); Calcium 8.6 mg/dl (8.4-10.2); Carbon Dioxide 29 mmol/L (22-30); Chloride 102 mmol/L (98-107); Estimated Creatinine Clearance 55 ml/min; Glucose 117 mg/dl (70-99); Potassium 4.4 mmol/L (3.5-5.1); Sodium 137 mmol/L (135-145); eGFR > 60.00
[2024-06-09] MEDS: NOVOLOG FLEXPEN-LOW RESISTANCE SC (08:20)
[2024-06-09] MEDS: GLUCOTROL 10 MG PO (08:24)
[2024-06-09] MEDS: TOPROL XL 50 MG PO (08:24)
[2024-06-09] MEDS: LASIX 80 MG PO (08:24)
[2024-06-09] MEDS: COLACE 100 MG PO (08:24)
[2024-06-09] MEDS: VITAMIN B-12 1000 MCG PO (08:25)
[2024-06-09] MEDS: GLUCOPHAGE 1000 MG PO (08:25)
[2024-06-09] MEDS: ASPIR LOW (ENTERIC COATED) 81 MG PO (08:25)
[2024-06-09] MEDS: ROXICODONE 10 MG PO ×2 (08:25→14:42)
[2024-06-09] MEDS: FARXIGA 10 MG PO (08:25)
[2024-06-09] MEDS: NEURONTIN 200 MG PO ×2 (08:25→16:20)
[2024-06-09] MEDS: KCL 20 MEQ PO (08:29)
[2024-06-09] MEDS: VITAMIN D3 (cholecalciferol) 25 MCG PO (08:30)
[2024-06-09] MEDS: HEPARIN 5000 UNITS SC (08:30)
[2024-06-09] MEDS: TYLENOL 650 MG PO ×2 (08:36→14:39)
[2024-06-09] MEDS: COZAAR 25 MG PO (08:36)
--- NOTE | 2024-06-09 09:11 | CM ---
Reviewed the chart notes and spoke with the patient at the bedside. IMM reviewed. Patient has been accepted at [facility]. CM continues to be available to patient/family and is monitoring medical plan for needs at discharge.
Plan: Discharge to [facility] today.
Call report to: [phone]
Fax report to: [phone]
[2024-06-09] MEDS: ZOFRAN 4 MG IV (11:24)
[2024-06-09 11:55] LABS: Glucose - Point of Care 184 mg/dl (70-99)
[2024-06-09] MEDS: DULCOLAX 10 MG RECTAL (12:02)
[2024-06-09] MEDS: NOVOLOG FLEXPEN-LOW RESISTANCE 1 UNITS SC (12:36)
[2024-06-09 14:57] VITALS: BP 137/65; PULSE 82; O2SAT 97
[2024-06-09 15:14] VITALS: BP 137/65; PULSE 83; O2SAT 97
[2024-06-09 15:30] VITALS: BP 132/57
--- NOTE | 2024-06-09 15:40 | CARDSERVDEF ---
Echocardiogram with Definity completed after protocol screening completed. Allergies verified.
Patent IV site:
IV site flushed with 0.9% NaCl pre and post administration.
Diluted bolus method utilized to enhance visualization of ventricular carrillo.
Total volume given: ____ mL
Patient tolerated all procedures well without complications.
[2024-06-09] MEDS: LASIX 40 MG PO (16:27)
== END 2024-06-09 17:20 | DRG 240 ==
LOC: 2 SOUTH 10:34
PROVIDERS: Nurse Practitioner; ADMITTING PHYSICIAN Surgery Vascular Surgery; CONSULT PHYSICIAN Physical Medicine & Rehabilitation; PRIMARYCARE PHYSICIAN Family Medicine
PROC: 0Y6H0Z2 Detachment at Right Lower Leg, Mid, Open Approach (ICD-10-PCS; 2024-06-06)
DX: E11.52 Type 2 diabetes mellitus with diabetic peripheral angiopathy with gangrene (principal); I50.42 Chronic combined systolic (congestive) and diastolic (congestive) heart failure; J45.909 Unspecified asthma, uncomplicated; I11.0 Hypertensive heart disease with heart failure; D64.9 Anemia, unspecified; E78.5 Hyperlipidemia, unspecified; I25.10 Atherosclerotic heart disease of native coronary artery without angina pectoris; Z79.01 Long term (current) use of anticoagulants; Z79.82 Long term (current) use of aspirin; Z87.891 Personal history of nicotine dependence; Z79.899 Other long term (current) drug therapy; Z95.810 Presence of automatic (implantable) cardiac defibrillator; B36.9 Superficial mycosis, unspecified; E11.40 Type 2 diabetes mellitus with diabetic neuropathy, unspecified; G54.6 Phantom limb syndrome with pain
CPT/HCPCS: 88307; 88311; 27880; 80048; 82962; 83036; 85027; 85610; 85730; 86850; 86900; 86901; 97110; 97163; 97167; 97530

== ENCOUNTER 2024-08-15 09:56 | Day surgery (SDC) | payer MEDICARE, OTHER, SELFPAY ==
[2024-08-15] VITALS (16 sets, daily range): BP systolic 98–131; BP diastolic 48–61; BMI 23.7
[2024-08-15 10:25] LABS: Mean Corp Hgb Conc. 32.4 g/dL (33.0-37.0); Mean Corpuscular Hgb 30.5 pg (27.0-31.0); Mean Corpuscular Volume 94.1 fL (80.0-94.0); Platelet Count 196 10^3/uL (130-400); Red Blood Cell Count 3.93 10^6/uL (4.70-6.10); Red Cell Dist. Width 15.7 % (11.5-14.5); White Blood Cell Count 7.7 10^3/uL (4.8-10.8)
[2024-08-15 10:37] LABS: Blood Urea Nitrogen 19 mg/dl (9-20); Calcium 9.3 mg/dl (8.4-10.2); Carbon Dioxide 26 mmol/L (22-30); Chloride 105 mmol/L (98-107); Glucose 128 mg/dl (70-99); Potassium 4.4 mmol/L (3.5-5.1); Sodium 138 mmol/L (135-145); eGFR > 60.00
[2024-08-15 10:39] LABS: INR 0.97; PT 13.2 Sec (11.4-14.6)
[2024-08-15 10:41] LABS: APTT 28.4 Sec (23.4-35.0)
[2024-08-15] MEDS: NSS 500 IV (10:52)
[2024-08-15] MEDS: PERIDEX 0.12% ORAL RINSE 15 ML PO (10:52)
[2024-08-15] MEDS: BACTROBAN NASAL 1 GRAM NASAL (10:52)
--- NOTE | 2024-08-15 13:21 | W.SUR.POST ---
Surgical Immediate Post Op
Note
Pre Op Diagnosis: nonhealing BKA site
Post Op Diagnosis: same
Procedure Performed: Right BKA debridement
Primary Surgeon: Elida
Secondary Surgeons: Paul PGY5
Anesthesia: LMA
Estimated Blood Loss: <2cc
Fluids: see anesthesia flow sheet
Drains/Shunts: none
Specimens/Cultures: none
Doppler/Duplex/Angio (Y/N): N
Complications: none
Operative Findings: clean wound bed
[2024-08-15] MEDS: DILAUDID 0.5 MG IV ×2 (13:37→13:49)
[2024-08-15 13:56] LABS: Glucose - Point of Care 111 mg/dl (70-99)
--- NOTE | 2024-08-15 17:09 | OR.RPT ---
Operative Report
Operative Report
Date of Operation: 08/15/2024
Pre Op Diagnosis: Poorly healing right below the knee amputation stump
Post Op Diagnosis: Poorly healing right below the knee amputation stump
Procedure: Sharp excisional debridement of right below the knee amputation stump including skin, subcutaneous tissue, muscle and fascia (wound dimensions 13 cm x 3 cm = 39 cm�)
Surgeon: Sampson Marrero III, MD
Site Leasing Agent: Jeffery Miller MD, PGY5
Anesthesia: General
Complications: None
Estimated Blood Loss: Less than 10 cc
History and Indications for Procedure: 78-year-old male with poorly healing right below the knee amputation
Procedure in Detail: Rogelio Pelletier was correctly identified and placed supine on the operating table. After adequate induction of anesthesia the right below the knee amputation stump was positioned, prepped and draped in the usual sterile
fashion. Preoperative antibiotics were administered. A timeout procedure was performed with the nursing and anesthesia staff confirming the patient's identity as well as the nature and laterality of the procedure.
Using a scalpel, scissors and forceps, sharp excisional debridement was performed on the BKA wound. Skin, subcutaneous tissue, muscle and fascia was sharply debrided from the wound. Necrotic eschar and fibrinous exudate was debrided from the
wound. No purulence was identified. Debridement of the ischemic tissue continued to healthier appearing bleeding tissue. The wound dimensions debrided were 13 cm x 3 cm.
The wound was then irrigated with saline. Hemostasis was achieved using electrocautery. Sterile dressings were applied.
The patient tolerated the procedure well and was taken to the PACU in stable condition
Attestation: I was present and responsible for the entire procedure
Signed:
Sampson Marrero III, MD
Vascular Surgery
[facility]
== END 2024-08-15 16:24 | disposition home health service (06) ==
LOC: CATH 09:56
PROVIDERS: ATTENDING PHYSICIAN Surgery Vascular Surgery; OTHER PHYSICIAN Internal Medicine Cardiovascular Disease; PRIMARYCARE PHYSICIAN Family Medicine
DX: T81.89XS Other complications of procedures, not elsewhere classified, sequela (principal); Y83.5 Amputation of limb(s) as the cause of abnormal reaction of the patient, or of later complication, without mention of misadventure at the time of the procedure; Z89.511 Acquired absence of right leg below knee; Z88.0 Allergy status to penicillin; Z88.8 Allergy status to other drugs, medicaments and biological substances
CPT/HCPCS: 11043; 11046; 80048; 82962; 85027; 85610; 85730

== ENCOUNTER 2024-09-13 11:30 | Day surgery (SDC) | payer MEDICARE, OTHER, SELFPAY ==
[2024-09-13] VITALS (10 sets, daily range): BP systolic 87–107; BP diastolic 43–59; BMI 23.7
[2024-09-13 12:16] LABS: Hematocrit 35.5 % (39.0-52.0); Hemoglobin 11.7 g/dL (13.0-18.0); Mean Corp Hgb Conc. 33.0 g/dL (33.0-37.0); Mean Corpuscular Volume 89.4 fL (80.0-94.0); Platelet Count 217 10^3/uL (130-400); Red Cell Dist. Width 14.5 % (11.5-14.5)
[2024-09-13] MEDS: NSS 500 IV (12:21)
[2024-09-13 12:37] LABS: APTT 29.5 Sec (23.4-35.0); INR 1.11; PT 14.6 Sec (11.4-14.6)
[2024-09-13 12:47] LABS: Blood Urea Nitrogen 34 mg/dl (9-20); Calcium 9.4 mg/dl (8.4-10.2); Carbon Dioxide 26 mmol/L (22-30); Chloride 104 mmol/L (98-107); Estimated Creatinine Clearance 60 ml/min; Glucose 240 mg/dl (70-99); Potassium 4.7 mmol/L (3.5-5.1); Sodium 136 mmol/L (135-145); eGFR > 60.00
[2024-09-13 13:56] LABS: Glucose - Point of Care 226 mg/dl (70-99)
--- NOTE | 2024-09-13 14:15 | OR.RPT ---
Operative Report
Operative Report
Date of Operation: 09/13/2024
Pre Op Diagnosis: Poorly healing right below the knee amputation
Post Op Diagnosis: Poorly healing right below the knee amputation
Procedure: Sharp excisional debridement of right below-knee amputation including skin, subcutaneous tissue, muscle and fascia (wound dimensions 9 cm x 5 cm)
Surgeon: Sampson Marrero III, MD
Prison Guard: Christopher Fox MD PGY-6
Anesthesia: General
Complications: None
Estimated Blood Loss: 5 cc
History and Indications for Procedure: 78-year-old male with poorly healing right below the knee amputation wound. He was brought to the operating room for sharp excisional debridement
Procedure in Detail: Rogelio Pelletier was correctly identified and placed supine on the operating table. After adequate induction of anesthesia the right below the knee amputation stump was positioned, prepped and draped in the usual sterile
fashion. Preoperative antibiotics were administered. A timeout procedure was performed with the nursing and anesthesia staff confirming the patient's identity as well as the nature and laterality of the procedure.
Using a scalpel, scissors and forceps, sharp excisional debridement was performed on the right BKA wound. Fibrinous exudate and necrotic eschar was sharply debrided from the wound. Additional skin, subcutaneous tissue, muscle and fascia were
sharply debrided from the wound. Following debridement the deep tissue was pink and healthy in appearance. Bleeding was identified. No purulence was identified. The deep tissue was intact and did not probe deeper at any point throughout the wound
base. The wound dimensions debrided were 9 cm x 5 cm. The wound was irrigated with copious amounts of warm saline solution. Hemostasis was achieved in the wound bed. Sterile dressings were applied.
The patient tolerated the procedure well and was taken to the PACU in stable condition
Attestation: I was present and responsible for the entire procedure
Signed:
Sampson Marrero III, MD
Vascular Surgery
[facility]
[2024-09-13 14:16] LABS: Glucose - Point of Care 199 mg/dl (70-99)
== END 2024-09-13 16:05 | disposition home or self-care (01) ==
LOC: CATH 11:30
PROVIDERS: ATTENDING PHYSICIAN Surgery Vascular Surgery; PRIMARYCARE PHYSICIAN Family Medicine; REFERRING PHYSICIAN Internal Medicine Cardiovascular Disease
DX: T81.89XA Other complications of procedures, not elsewhere classified, initial encounter (principal); Y83.5 Amputation of limb(s) as the cause of abnormal reaction of the patient, or of later complication, without mention of misadventure at the time of the procedure; Z89.511 Acquired absence of right leg below knee
CPT/HCPCS: 11043; 11046; 80048; 82962; 85027; 85610; 85730; 93005

== ENCOUNTER → 2025-01-06 13:07 | Outpatient (REF) | payer MEDICARE, OTHER, SELFPAY ==
[2025-01-06 14:15] LABS: Glycohemoglobin (HgbA1c) 7.6 % (4.0-5.9)
[2025-01-06 14:24] LABS: ALT (SGPT) 17 U/L (0-50); AST (SGOT) 15 U/L (17-59); Albumin 3.9 g/dl (3.5-5.0); Alkaline Phosphatase 112 U/L (38-126); Blood Urea Nitrogen 26 mg/dl (9-20); Calcium 9.3 mg/dl (8.4-10.2); Carbon Dioxide 30 mmol/L (22-30); Chloride 102 mmol/L (98-107); Glucose 132 mg/dl (70-99); HDL Cholesterol 23 mg/dl; LDL Cholesterol, Calculated 114 mg/dl; Potassium 4.9 mmol/L (3.5-5.1); Sodium 137 mmol/L (135-145); Total Protein 6.7 g/dl (6.3-8.2); Very Low Density Lipoprotein 26 mg/dl (0-30); eGFR > 60.00
== END ==
LOC: REG 13:07
PROVIDERS: ATTENDING PHYSICIAN Internal Medicine Endocrinology, Diabetes & Metabolism
DX: E11.65 Type 2 diabetes mellitus with hyperglycemia (principal)
CPT/HCPCS: 36415; 80053; 80061; 82570; 83036; 84156

== ENCOUNTER → 2025-01-13 14:10 | Outpatient (REF) | payer MEDICARE, OTHER, SELFPAY | LOC: RAD 14:10 | PROVIDERS: ATTENDING PHYSICIAN Registered Nurse | DX: Z89.511 Acquired absence of right leg below knee (principal) | CPT/HCPCS: 93922; 93925 ==